=== PATIENT | female | born 1960 | race Caucasian/White ===

== ENCOUNTER 2017-12-28 19:46 | Inpatient (IN) | payer OTHER ==
[2017-12-28] MEDS: LORAZEPAM 1 MG TAB PO (20:31)
[2017-12-28] MEDS: ONDANSETRON 4 MG INJ IV (21:57)
[2017-12-28] MEDS: SOD CHLORIDE 0.9% 1,000 ML IV (21:57)
[2017-12-28] MEDS: morphine 4 MG/ML VIAL IV (21:57)
[2017-12-28 22:13] LABS: ADD MAN DIFF? NO
[2017-12-28 22:18] LABS: BASOPHILS % 0.4 % (0.0-2.0); EOSINOPHILS # 0.3 10^3/ul (0.0-0.5); EOSINOPHILS % 3.7 % (0.0-7.0); HEMOGLOBIN 11.1 g/dl (12.0-16.0); LYMPHOCYTES # 1.5 10^3/ul (0.8-2.9); LYMPHOCYTES % 22.6 % (15.0-51.0); MEAN CORPUSCULAR HEMOGLOBIN 29.6 pg (29.0-33.0); MEAN CORPUSCULAR HGB CONC 33.6 g/dl (32.0-37.0); MEAN PLATELET VOLUME 10.6 fl (7.4-10.4); MONOCYTE # 0.5 10^3/ul (0.3-0.9); MONOCYTES % 6.9 % (0.0-11.0); NEUTROPHIL # 4.5 10^3/ul (1.6-7.5); NEUTROPHILS % 66.1 % (39.0-77.0); PLATELET COUNT 229 10^3/UL (140-415); RED BLOOD COUNT 3.75 10^6/ul (4.20-5.40); RED CELL DISTRIBUTION WIDTH 13.2 % (11.5-14.5)
[2017-12-28 22:18] LABS: WHITE BLOOD COUNT 6.8 10^3/ul (4.8-10.8)
[2017-12-28 22:38] LABS: ALANINE AMINOTRANSFERASE 32 IU/L (13-69); ALBUMIN 4.3 g/dl (3.3-4.9); ALBUMIN/GLOBULIN RATIO 1.19; ALKALINE PHOSPHATASE 73 IU/L (42-121); ANION GAP 16 (8-16); ASPARTATE AMINO TRANSFERASE 22 IU/L (15-46); BILIRUBIN,INDIRECT 0.3 mg/dl (0-1.1); BILIRUBIN,TOTAL 0.3 mg/dl (0.2-1.3); BLOOD UREA NITROGEN 16 mg/dl (7-20); CALCIUM 9.6 mg/dl (8.4-10.2); CARBON DIOXIDE 24 mmol/L (21-31); CHLORIDE 110 mmol/L (97-110); CREATININE 0.68 mg/dl (0.44-1.00); GLUCOSE 98 mg/dl (70-220); LIPASE 59 U/L (23-300); POTASSIUM 3.8 mmol/L (3.5-5.1); SODIUM 146 mmol/L (135-144); TOTAL PROTEIN 7.9 g/dl (6.1-8.1)
[2017-12-28 22:43] LABS: INR 0.96; PROTIME 12.9 Sec (11.9-14.9)
[2017-12-28 22:44] LABS: PARTIAL THROMBOPLASTIN TIME 26.9 Sec (25.0-35.0)
[2017-12-28 22:52] LABS: TROPONIN-I < 0.012 ng/ml (0.00-0.12)
[2017-12-28 23:31] LABS: ADD UMIC YES; UR ASCORBIC ACID NEGATIVE (NEGATIVE); UR BACTERIA FEW /HPF (NONE SEEN); UR BILIRUBIN (Dip) NEGATIVE (NEGATIVE); UR BLOOD (Dip) 2+ mg/dL (NEGATIVE); UR CLARITY CLOUDY (CLEAR); UR COLOR YELLOW (YELLOW); UR GLUCOSE (Dip) NEGATIVE (NEGATIVE); UR KETONES (Dip) NEGATIVE (NEGATIVE); UR LEUKOCYTE ESTERASE (Dip) 3+ Leu/ul (NEGATIVE); UR MUCUS FEW /HPF (NONE SEEN); UR NITRITE (Dip) NEGATIVE (NEGATIVE); UR NONSQUAMOUS EPITHELIAL CELL 1 /HPF (NONE SEEN); UR RBC 17 /HPF (0-5); UR SPECIFIC GRAVITY (Dip) 1.018 (1.003-1.030); UR SQUAMOUS EPITHELIAL CELL FEW /HPF (FEW); UR TOTAL PROTEIN (Dip) 2+ mg/dl (NEGATIVE); UR UROBILINOGEN (Dip) NEGATIVE (NEGATIVE); UR WBC > 182 /HPF (0-5)
[2017-12-29] MEDS: ONDANSETRON 4 MG INJ IV ×2 (00:25→07:25)
[2017-12-29] MEDS: morphine 4 MG/ML VIAL IV (00:25)
[2017-12-29] MEDS: clonAZEPAM 0.5 MG TAB PO (02:56)
[2017-12-29] MEDS ORDERED: NACL 0.9% 3 ML SYG IV (05:30)
[2017-12-29] MEDS ORDERED: ALBUTEROL/IPRATROPIUM (NEB) 3 ML AMP HHN (05:30)
[2017-12-29] MEDS ORDERED: ACETAMINOPHEN 325 MG TAB PO (05:30)
[2017-12-29] MEDS: hydrALAzine 20 MG INJ IV ×2 (06:25→16:33)
[2017-12-29] MEDS: morphine 2 MG INJ IV ×2 (07:24→10:25)
[2017-12-29] MEDS: NITROFURANTOIN (SR) 100 MG CAP PO (07:24)
[2017-12-29] MEDS: CIPROFLOXACIN 400MG/D5W 200 ML IVPB ×2 (10:20→20:21)
[2017-12-29] MEDS: GABAPENTIN 100 MG CAP PO ×3 (10:20→20:20)
[2017-12-29] MEDS: AMLODIPINE 10 MG TAB PO (10:20)
[2017-12-29] MEDS: HEPARIN 5,000 UNIT/0.5 ML VIAL SC ×2 (10:25→20:21)
[2017-12-29] MEDS ORDERED: HYDROCODONE/APAP (10/325) TAB PO (11:30)
[2017-12-29] MEDS ORDERED: predniSONE 20 MG TAB PO (11:30)
[2017-12-29] MEDS: BACLOFEN 10 MG TAB PO ×2 (12:17→20:20)
[2017-12-29] MEDS: HYDROCODONE/APAP (10/325) TAB PO ×3 (14:32→22:43)
[2017-12-29] MEDS: ZOLPIDEM 5 MG TAB PO (23:03)
[2017-12-30] MEDS: BACLOFEN 10 MG TAB PO ×2 (04:34→16:15)
[2017-12-30] MEDS: HYDROCODONE/APAP (10/325) TAB PO ×4 (04:34→20:28)
[2017-12-30 06:08] LABS: ADD MAN DIFF? NO
[2017-12-30 06:21] LABS: BASOPHILS % 0.5 % (0.0-2.0); EOSINOPHILS # 0.3 10^3/ul (0.0-0.5); EOSINOPHILS % 4.3 % (0.0-7.0); HEMATOCRIT 30.9 % (37.0-47.0); HEMOGLOBIN 10.3 g/dl (12.0-16.0); LYMPHOCYTES # 2.2 10^3/ul (0.8-2.9); LYMPHOCYTES % 35.5 % (15.0-51.0); MEAN CORPUSCULAR HEMOGLOBIN 29.6 pg (29.0-33.0); MEAN CORPUSCULAR HGB CONC 33.3 g/dl (32.0-37.0); MEAN CORPUSCULAR VOLUME 88.8 fl (82.0-101.0); MEAN PLATELET VOLUME 10.8 fl (7.4-10.4); MONOCYTE # 0.6 10^3/ul (0.3-0.9); MONOCYTES % 9.7 % (0.0-11.0); NEUTROPHILS % 49.7 % (39.0-77.0); PLATELET COUNT 214 10^3/UL (140-415); RED BLOOD COUNT 3.48 10^6/ul (4.20-5.40); RED CELL DISTRIBUTION WIDTH 13.1 % (11.5-14.5)
[2017-12-30 06:21] LABS: WHITE BLOOD COUNT 6.1 10^3/ul (4.8-10.8)
[2017-12-30 06:38] LABS: HEMOGLOBIN A1C 5.3 % (0-5.9)
[2017-12-30 06:48] LABS: ALANINE AMINOTRANSFERASE 16 IU/L (13-69); ALBUMIN 3.8 g/dl (3.3-4.9); ALBUMIN/GLOBULIN RATIO 1.18; ALKALINE PHOSPHATASE 54 IU/L (42-121); ANION GAP 14 (8-16); ASPARTATE AMINO TRANSFERASE 16 IU/L (15-46); BILIRUBIN,INDIRECT 0.2 mg/dl (0-1.1); BILIRUBIN,TOTAL 0.2 mg/dl (0.2-1.3); BLOOD UREA NITROGEN 12 mg/dl (7-20); CALCIUM 9.3 mg/dl (8.4-10.2); CARBON DIOXIDE 26 mmol/L (21-31); CHLORIDE 106 mmol/L (97-110); CREATININE 0.66 mg/dl (0.44-1.00); GLUCOSE 111 mg/dl (70-220); MAGNESIUM 1.6 mg/dl (1.7-2.5); PHOSPHORUS 4.2 mg/dl (2.5-4.9); POTASSIUM 3.8 mmol/L (3.5-5.1); SODIUM 142 mmol/L (135-144)
[2017-12-30] MEDS: GABAPENTIN 100 MG CAP PO ×3 (09:14→20:27)
[2017-12-30] MEDS: CIPROFLOXACIN 400MG/D5W 200 ML IVPB ×2 (09:15→20:25)
[2017-12-30] MEDS: AMLODIPINE 10 MG TAB PO (09:15)
[2017-12-30] MEDS: hydrALAzine 20 MG INJ IV (09:19)
[2017-12-30] MEDS: HEPARIN 5,000 UNIT/0.5 ML VIAL SC ×2 (09:43→20:26)
[2017-12-30] MEDS: predniSONE 20 MG TAB PO (10:00)
[2017-12-30] MEDS: MAGNESIUM OXIDE 400 MG TAB PO ×2 (10:31→20:27)
[2017-12-30] MEDS: DIAZEPAM 5 MG TAB PO ×2 (13:47→20:27)
[2017-12-30] MEDS: GABAPENTIN 300 MG CAP PO (15:59)
[2017-12-30] MEDS: MIRTAZAPINE 15 MG TAB PO (20:27)
[2017-12-30] MEDS: clonAZEPAM 0.5 MG TAB PO (20:27)
[2017-12-30] MEDS: SENNA TAB PO (20:27)
[2017-12-30] MEDS ORDERED: NEOMYC/POLYMYX/BACIT/HC 15 GM OINT TOP (21:00)
[2017-12-31] MEDS: HYDROCODONE/APAP (10/325) TAB PO ×5 (01:29→23:35)
[2017-12-31] MEDS: DIAZEPAM 5 MG TAB PO ×4 (04:18→23:35)
[2017-12-31] MEDS: clonAZEPAM 0.5 MG TAB PO ×2 (08:24→21:18)
[2017-12-31] MEDS: MAGNESIUM OXIDE 400 MG TAB PO ×2 (08:24→21:14)
[2017-12-31] MEDS: GABAPENTIN 100 MG CAP PO ×3 (08:25→21:13)
[2017-12-31] MEDS: AMLODIPINE 10 MG TAB PO (08:25)
[2017-12-31] MEDS: predniSONE 20 MG TAB PO (08:29)
[2017-12-31] MEDS: SENNA TAB PO ×2 (08:31→21:18)
[2017-12-31] MEDS: CIPROFLOXACIN 400MG/D5W 200 ML IVPB ×2 (08:31→21:13)
[2017-12-31] MEDS: HEPARIN 5,000 UNIT/0.5 ML VIAL SC ×2 (08:34→21:15)
[2017-12-31] MEDS: BACLOFEN 10 MG TAB PO (09:00)
[2017-12-31] MEDS: DEXAMETHASONE 4 MG/ML 1 ML INJ IV ×3 (09:00→23:35)
[2017-12-31] MEDS: NEOMYC/POLYMYX/BACIT/HC 15 GM OINT TOP ×2 (11:00→21:00)
[2017-12-31] MEDS: INFLUENZA VIRUS VACCINE 0.5 ML SYG IM* (15:48)
[2017-12-31] MEDS: MIRTAZAPINE 15 MG TAB PO (21:13)
[2018-01-01] MEDS: ZOLPIDEM 5 MG TAB PO (02:34)
[2018-01-01] MEDS: DIAZEPAM 5 MG TAB PO ×4 (03:45→23:54)
[2018-01-01] MEDS: HYDROCODONE/APAP (10/325) TAB PO ×5 (03:46→23:54)
[2018-01-01] MEDS: DEXAMETHASONE 4 MG/ML 1 ML INJ IV ×4 (05:32→23:54)
[2018-01-01] MEDS: BACLOFEN 10 MG TAB PO ×2 (05:42→22:46)
[2018-01-01] MEDS: HEPARIN 5,000 UNIT/0.5 ML VIAL SC ×2 (09:00→20:19)
[2018-01-01] MEDS: NEOMYC/POLYMYX/BACIT/HC 15 GM OINT TOP (09:00)
[2018-01-01] MEDS: INFLUENZA VIRUS VACCINE 0.5 ML SYG IM* (09:00)
[2018-01-01] MEDS: AMLODIPINE 10 MG TAB PO (09:00)
[2018-01-01] MEDS: SENNA TAB PO ×2 (09:00→21:51)
[2018-01-01] MEDS: GABAPENTIN 100 MG CAP PO ×4 (09:00→21:51)
[2018-01-01] MEDS: clonAZEPAM 0.5 MG TAB PO ×3 (09:00→21:51)
[2018-01-01] MEDS: MAGNESIUM OXIDE 400 MG TAB PO ×3 (09:00→21:51)
[2018-01-01] MEDS: CIPROFLOXACIN 400MG/D5W 200 ML IVPB ×2 (09:00→10:17)
[2018-01-01] MEDS: NEOMYC/POLYMYX/BACIT 30 GM OINT TOP ×2 (17:43→21:51)
[2018-01-01] MEDS: HYDROCORTISONE 1% 28 GM CR TOP ×2 (17:44→21:51)
[2018-01-01] MEDS: hydrALAzine 20 MG INJ IV (20:21)
[2018-01-01] MEDS ORDERED: KETOROLAC 30 MG INJ IV (20:30)
[2018-01-01] MEDS: MIRTAZAPINE 15 MG TAB PO (21:51)
[2018-01-02 02:11] LABS: ADD MAN DIFF? NO
[2018-01-02 02:17] LABS: WHITE BLOOD COUNT 10.4 10^3/ul (4.8-10.8)
[2018-01-02 02:17] LABS: BASOPHILS % 0.1 % (0.0-2.0); HEMATOCRIT 33.5 % (37.0-47.0); HEMOGLOBIN 11.5 g/dl (12.0-16.0); LYMPHOCYTES # 1.1 10^3/ul (0.8-2.9); LYMPHOCYTES % 10.8 % (15.0-51.0); MEAN CORPUSCULAR HEMOGLOBIN 29.9 pg (29.0-33.0); MEAN CORPUSCULAR HGB CONC 34.3 g/dl (32.0-37.0); MEAN PLATELET VOLUME 10.6 fl (7.4-10.4); MONOCYTE # 0.4 10^3/ul (0.3-0.9); MONOCYTES % 4.1 % (0.0-11.0); NEUTROPHIL # 8.7 10^3/ul (1.6-7.5); NEUTROPHILS % 83.6 % (39.0-77.0); PLATELET COUNT 281 10^3/UL (140-415); RED BLOOD COUNT 3.85 10^6/ul (4.20-5.40); RED CELL DISTRIBUTION WIDTH 12.9 % (11.5-14.5)
[2018-01-02 02:36] LABS: ANION GAP 23 (8-16); BLOOD UREA NITROGEN 20 mg/dl (7-20); CALCIUM 9.6 mg/dl (8.4-10.2); CARBON DIOXIDE 20 mmol/L (21-31); CHLORIDE 104 mmol/L (97-110); CREATININE 0.52 mg/dl (0.44-1.00); GLUCOSE 179 mg/dl (70-220); MAGNESIUM 2.1 mg/dl (1.7-2.5); POTASSIUM 4.3 mmol/L (3.5-5.1); SODIUM 143 mmol/L (135-144)
[2018-01-02] MEDS: DEXAMETHASONE 4 MG/ML 1 ML INJ IV ×3 (05:48→17:56)
[2018-01-02] MEDS: LORAZEPAM 2 MG INJ IV (05:48)
[2018-01-02] MEDS: hydrALAzine 20 MG INJ IV (06:35)
[2018-01-02] MEDS ORDERED: METOPROLOL 5 MG INJ (07:00)
[2018-01-02] MEDS ORDERED: MIDAZOLAM 1 MG/ML 2 ML INJ ×2 (07:39→10:59)
[2018-01-02] MEDS: VANCOMYCIN 1 GM (PMX) 250 ML (08:15)
[2018-01-02] MEDS ORDERED: morphine 10 MG INJ ×3 (08:34→13:04)
[2018-01-02] MEDS ORDERED: GENTAMICIN 80 MG INJ (08:51)
[2018-01-02] MEDS: GABAPENTIN 100 MG CAP PO ×3 (09:00→21:42)
[2018-01-02] MEDS: HYDROCORTISONE 1% 28 GM CR TOP ×2 (09:00→21:42)
[2018-01-02] MEDS: SENNA TAB PO ×2 (09:00→21:42)
[2018-01-02] MEDS: clonAZEPAM 0.5 MG TAB PO ×2 (09:00→21:42)
[2018-01-02] MEDS: MAGNESIUM OXIDE 400 MG TAB PO ×2 (09:00→21:42)
[2018-01-02] MEDS: HEPARIN 5,000 UNIT/0.5 ML VIAL SC ×2 (09:00→21:00)
[2018-01-02] MEDS: NEOMYC/POLYMYX/BACIT 30 GM OINT TOP ×2 (09:00→21:42)
[2018-01-02] MEDS: AMLODIPINE 10 MG TAB PO (09:00)
[2018-01-02] MEDS: LIDOCAINE 1%/EPI 30 ML INJ (09:04)
[2018-01-02] MEDS ORDERED: GELATIN SIZE 100 SPONGE (09:22)
[2018-01-02] MEDS: GELATIN SIZE 100 SPONGE (09:57)
[2018-01-02] MEDS: THROMBIN 5000 UNIT VIAL (09:57)
[2018-01-02] MEDS: POLYMYXIN/BACITRACIN 1L IRRIG (09:58)
[2018-01-02] MEDS: HEMOSTATIC MATRIX SYG ZFS (09:58)
[2018-01-02] MEDS ORDERED: hydrALAzine 20 MG INJ (10:57)
[2018-01-02] MEDS ORDERED: DEXAMETHASONE 4 MG/ML 1 ML INJ (12:28)
[2018-01-02] MEDS ORDERED: LIDOCAINE 2% (SDV) 5 ML INJ (12:28)
[2018-01-02] MEDS ORDERED: ONDANSETRON 4 MG INJ (12:28)
[2018-01-02] MEDS ORDERED: PROPOFOL 40 ML (12:28)
[2018-01-02] MEDS ORDERED: ROCURONIUM 50 MG INJ (12:28)
[2018-01-02] MEDS ORDERED: NACL 0.9% 3 ML SYG IV (13:00)
[2018-01-02] MEDS ORDERED: ONDANSETRON 4 MG INJ IV (13:00)
[2018-01-02] MEDS ORDERED: CEPASTAT LOZENGE MT (13:00)
[2018-01-02] MEDS ORDERED: NALOXONE (0.4 MG/ML) INJ IV (13:00)
[2018-01-02] MEDS ORDERED: MIDAZOLAM 1 MG/ML 2 ML INJ IV (13:30)
[2018-01-02] MEDS ORDERED: hydrALAzine 20 MG INJ IV (13:30)
[2018-01-02] MEDS ORDERED: LABETALOL HCL 20MG INJ IV (13:30)
[2018-01-02] MEDS ORDERED: METOCLOPRAMIDE 10 MG INJ IV (13:30)
[2018-01-02] MEDS ORDERED: HYDROmorphONE (0.2 MG/ML) 10ML SYG IV ×3 (13:30)
[2018-01-02] MEDS ORDERED: FENTAnyl 50 MCG/ML VIAL IV (13:30)
[2018-01-02] MEDS: ONDANSETRON 4 MG INJ IV (13:31)
[2018-01-02] MEDS: MEPERIDINE 25 MG INJ IV (13:33)
[2018-01-02] MEDS: morphine 1 MG/ML 30 ML (PCA) IV (13:57)
[2018-01-02] MEDS: ACETAMINOPHEN 1000MG/100ML IV 100 ML IVPB ×2 (14:00→21:41)
[2018-01-02] MEDS: DIPHENHYDRAMINE 50 MG INJ IV (14:15)
[2018-01-02] MEDS: MIRTAZAPINE 15 MG TAB PO (21:42)
[2018-01-02] MEDS: VANCOMYCIN 1 GM (PMX) 250 ML IVPB (21:42)
[2018-01-03] MEDS: DIAZEPAM 5 MG TAB PO ×2 (00:28→20:00)
[2018-01-03] MEDS: DEXAMETHASONE 4 MG/ML 1 ML INJ IV ×4 (01:24→18:27)
[2018-01-03] MEDS: ACETAMINOPHEN 1000MG/100ML IV 100 ML IVPB ×4 (02:39→20:00)
[2018-01-03] MEDS: LORAZEPAM 2 MG INJ IV (05:40)
[2018-01-03] MEDS ORDERED: LORAZEPAM 2 MG INJ (05:41)
[2018-01-03] MEDS: HALOPERIDOL 5 MG INJ IM ×2 (06:03→06:53)
[2018-01-03] MEDS ORDERED: DIPHENHYDRAMINE 50 MG INJ (06:14)
[2018-01-03] MEDS ORDERED: DIPHENHYDRAMINE 50 MG INJ IV (06:30)
[2018-01-03] MEDS: DIPHENHYDRAMINE 50 MG INJ IM (06:53)
[2018-01-03] MEDS: SENNA TAB PO ×2 (09:00→21:31)
[2018-01-03] MEDS: DOCUSATE SODIUM 100 MG CAP PO ×2 (09:00→21:30)
[2018-01-03] MEDS: HEPARIN 5,000 UNIT/0.5 ML VIAL SC ×2 (09:00→21:40)
[2018-01-03] MEDS: NEOMYC/POLYMYX/BACIT 30 GM OINT TOP ×2 (09:00→22:00)
[2018-01-03] MEDS: MAGNESIUM OXIDE 400 MG TAB PO ×2 (09:00→21:30)
[2018-01-03] MEDS: HYDROCORTISONE 1% 28 GM CR TOP ×2 (09:00→21:32)
[2018-01-03] MEDS: GABAPENTIN 100 MG CAP PO ×3 (09:00→21:31)
[2018-01-03] MEDS: clonAZEPAM 0.5 MG TAB PO (09:00)
[2018-01-03] MEDS: AMLODIPINE 10 MG TAB PO (09:00)
[2018-01-03] MEDS: FERROUS SULFATE (EC) 325 MG TAB PO ×3 (09:00→21:30)
[2018-01-03] MEDS: VANCOMYCIN 1 GM (PMX) 250 ML IVPB (11:05)
[2018-01-03 15:13] LABS: HEMATOCRIT 30.4 % (37.0-47.0); HEMOGLOBIN 10.1 g/dl (12.0-16.0)
[2018-01-03 15:53] LABS: ANION GAP 13 (8-16); BLOOD UREA NITROGEN 20 mg/dl (7-20); CALCIUM 9.5 mg/dl (8.4-10.2); CARBON DIOXIDE 25 mmol/L (21-31); CHLORIDE 108 mmol/L (97-110); CREATININE 0.62 mg/dl (0.44-1.00); GLUCOSE 112 mg/dl (70-220); POTASSIUM 4.1 mmol/L (3.5-5.1); SODIUM 142 mmol/L (135-144)
[2018-01-03] MEDS: MIRTAZAPINE 15 MG TAB PO (21:31)
[2018-01-03] MEDS: HYDROCODONE/APAP (5/325) TAB PO (21:33)
[2018-01-04] MEDS: clonAZEPAM 0.5 MG TAB PO ×3 (00:22→21:12)
[2018-01-04] MEDS: DEXAMETHASONE 4 MG/ML 1 ML INJ IV ×2 (00:22→05:18)
[2018-01-04] MEDS: ACETAMINOPHEN 1000MG/100ML IV 100 ML IVPB ×2 (02:16→08:00)
[2018-01-04] MEDS: HYDROCODONE/APAP (5/325) TAB PO ×5 (04:15→22:18)
[2018-01-04] MEDS: DIAZEPAM 5 MG TAB PO ×5 (05:17→22:19)
[2018-01-04] MEDS: MAGNESIUM OXIDE 400 MG TAB PO ×2 (08:34→21:12)
[2018-01-04] MEDS: AMLODIPINE 10 MG TAB PO (08:34)
[2018-01-04] MEDS: GABAPENTIN 100 MG CAP PO (08:35)
[2018-01-04] MEDS: DOCUSATE SODIUM 100 MG CAP PO ×2 (08:35→21:00)
[2018-01-04] MEDS: SENNA TAB PO ×2 (08:35→21:00)
[2018-01-04] MEDS: HYDROCORTISONE 1% 28 GM CR TOP ×2 (08:35→22:21)
[2018-01-04] MEDS: FERROUS SULFATE (EC) 325 MG TAB PO (08:35)
[2018-01-04] MEDS: HEPARIN 5,000 UNIT/0.5 ML VIAL SC ×2 (08:36→22:20)
[2018-01-04] MEDS: NEOMYC/POLYMYX/BACIT 30 GM OINT TOP ×2 (09:00→22:21)
[2018-01-04] MEDS: BACLOFEN 10 MG TAB PO ×2 (12:55→21:13)
[2018-01-04] MEDS: MIRTAZAPINE 15 MG TAB PO (21:12)
[2018-01-05] MEDS: DIAZEPAM 5 MG TAB PO ×4 (02:50→19:52)
[2018-01-05] MEDS: HYDROCODONE/APAP (5/325) TAB PO ×4 (02:51→19:52)
[2018-01-05] MEDS: clonAZEPAM 0.5 MG TAB PO ×2 (08:17→21:19)
[2018-01-05] MEDS: AMLODIPINE 10 MG TAB PO (08:18)
[2018-01-05] MEDS: DOCUSATE SODIUM 100 MG CAP PO ×2 (08:18→21:00)
[2018-01-05] MEDS: SENNA TAB PO ×2 (08:18→21:00)
[2018-01-05] MEDS: MAGNESIUM OXIDE 400 MG TAB PO ×2 (08:18→21:19)
[2018-01-05] MEDS: HEPARIN 5,000 UNIT/0.5 ML VIAL SC ×2 (08:41→21:22)
[2018-01-05] MEDS: HYDROCORTISONE 1% 28 GM CR TOP ×2 (09:00→21:20)
[2018-01-05] MEDS: NEOMYC/POLYMYX/BACIT 30 GM OINT TOP ×2 (09:00→21:20)
[2018-01-05] MEDS: MIRTAZAPINE 15 MG TAB PO (21:19)
[2018-01-06] MEDS: DIAZEPAM 5 MG TAB PO ×4 (00:12→18:22)
[2018-01-06] MEDS: HYDROCODONE/APAP (5/325) TAB PO ×4 (00:12→18:20)
[2018-01-06] MEDS: DOCUSATE SODIUM 100 MG CAP PO ×2 (09:00→21:00)
[2018-01-06] MEDS: SENNA TAB PO ×2 (09:00→21:00)
[2018-01-06] MEDS: AMLODIPINE 10 MG TAB PO (09:46)
[2018-01-06] MEDS: clonAZEPAM 0.5 MG TAB PO ×2 (09:47→21:21)
[2018-01-06] MEDS: MAGNESIUM OXIDE 400 MG TAB PO ×2 (09:47→21:21)
[2018-01-06] MEDS: NEOMYC/POLYMYX/BACIT 30 GM OINT TOP ×2 (09:48→21:22)
[2018-01-06] MEDS: HYDROCORTISONE 1% 28 GM CR TOP ×2 (09:48→21:22)
[2018-01-06] MEDS: BACLOFEN 10 MG TAB PO (09:52)
[2018-01-06] MEDS: HEPARIN 5,000 UNIT/0.5 ML VIAL SC ×2 (09:55→21:26)
[2018-01-06] MEDS: MIRTAZAPINE 15 MG TAB PO (21:21)
[2018-01-07] MEDS: DIAZEPAM 5 MG TAB PO ×5 (01:21→23:52)
[2018-01-07] MEDS: HYDROCODONE/APAP (5/325) TAB PO ×5 (01:21→23:52)
[2018-01-07] MEDS: MAGNESIUM OXIDE 400 MG TAB PO ×2 (08:43→21:00)
[2018-01-07] MEDS: clonAZEPAM 0.5 MG TAB PO ×2 (08:43→21:00)
[2018-01-07] MEDS: SENNA TAB PO ×2 (08:43→21:00)
[2018-01-07] MEDS: DOCUSATE SODIUM 100 MG CAP PO ×2 (08:43→21:00)
[2018-01-07] MEDS: AMLODIPINE 10 MG TAB PO (08:44)
[2018-01-07] MEDS: HEPARIN 5,000 UNIT/0.5 ML VIAL SC ×2 (08:51→21:04)
[2018-01-07] MEDS: HYDROCORTISONE 1% 28 GM CR TOP ×2 (11:27→21:01)
[2018-01-07] MEDS: NEOMYC/POLYMYX/BACIT 30 GM OINT TOP ×2 (11:27→21:01)
[2018-01-07] MEDS: BACLOFEN 10 MG TAB PO (16:21)
[2018-01-07] MEDS: MIRTAZAPINE 15 MG TAB PO (21:00)
[2018-01-08] MEDS: HYDROCODONE/APAP (5/325) TAB PO ×4 (06:55→23:49)
[2018-01-08] MEDS: clonAZEPAM 0.5 MG TAB PO ×2 (08:21→21:49)
[2018-01-08] MEDS: MAGNESIUM OXIDE 400 MG TAB PO ×2 (08:22→21:49)
[2018-01-08] MEDS: AMLODIPINE 10 MG TAB PO (08:22)
[2018-01-08] MEDS: HEPARIN 5,000 UNIT/0.5 ML VIAL SC ×2 (08:23→21:53)
[2018-01-08] MEDS: HYDROCORTISONE 1% 28 GM CR TOP ×2 (08:24→21:50)
[2018-01-08] MEDS: NEOMYC/POLYMYX/BACIT 30 GM OINT TOP ×2 (08:24→21:50)
[2018-01-08] MEDS: DOCUSATE SODIUM 100 MG CAP PO ×2 (08:24→21:00)
[2018-01-08] MEDS: SENNA TAB PO ×2 (08:24→21:00)
[2018-01-08] MEDS: DIAZEPAM 5 MG TAB PO (15:14)
[2018-01-08] MEDS: BACLOFEN 10 MG TAB PO (18:03)
[2018-01-08] MEDS: MIRTAZAPINE 15 MG TAB PO (21:49)
[2018-01-09] MEDS: DIAZEPAM 5 MG TAB PO ×2 (05:51→10:08)
[2018-01-09] MEDS: BACLOFEN 10 MG TAB PO (05:51)
[2018-01-09] MEDS: MAGNESIUM OXIDE 400 MG TAB PO ×2 (08:03→20:40)
[2018-01-09] MEDS: AMLODIPINE 10 MG TAB PO (08:03)
[2018-01-09] MEDS: clonAZEPAM 0.5 MG TAB PO ×2 (08:03→20:40)
[2018-01-09] MEDS: DOCUSATE SODIUM 100 MG CAP PO ×2 (08:04→20:43)
[2018-01-09] MEDS: HEPARIN 5,000 UNIT/0.5 ML VIAL SC ×2 (08:04→20:43)
[2018-01-09] MEDS: SENNA TAB PO ×2 (08:04→20:43)
[2018-01-09] MEDS: NEOMYC/POLYMYX/BACIT 30 GM OINT TOP ×2 (09:09→20:44)
[2018-01-09] MEDS: HYDROCODONE/APAP (5/325) TAB PO (09:09)
[2018-01-09] MEDS: HYDROCORTISONE 1% 28 GM CR TOP ×2 (09:09→20:44)
[2018-01-09] MEDS ORDERED: KETOROLAC 30 MG INJ IV (11:00)
[2018-01-09] MEDS: MIRTAZAPINE 15 MG TAB PO (20:40)
[2018-01-09] MEDS: traMADol 50 MG TAB PO (23:15)
[2018-01-10] MEDS: BACLOFEN 10 MG TAB PO ×3 (00:54→17:31)
[2018-01-10] MEDS: ZOLPIDEM 5 MG TAB PO (00:57)
[2018-01-10] MEDS: HYDROCODONE/APAP (5/325) TAB PO ×6 (02:34→23:47)
[2018-01-10] MEDS: DIAZEPAM 5 MG TAB PO ×5 (02:34→23:15)
[2018-01-10] MEDS: clonAZEPAM 0.5 MG TAB PO ×2 (08:55→22:11)
[2018-01-10] MEDS: MAGNESIUM OXIDE 400 MG TAB PO ×2 (08:55→22:10)
[2018-01-10] MEDS: SENNA TAB PO ×2 (08:56→21:00)
[2018-01-10] MEDS: AMLODIPINE 10 MG TAB PO (08:56)
[2018-01-10] MEDS: NEOMYC/POLYMYX/BACIT 30 GM OINT TOP ×2 (08:56→22:13)
[2018-01-10] MEDS: DOCUSATE SODIUM 100 MG CAP PO ×2 (08:56→21:00)
[2018-01-10] MEDS: HYDROCORTISONE 1% 28 GM CR TOP ×2 (08:57→22:13)
[2018-01-10] MEDS: HEPARIN 5,000 UNIT/0.5 ML VIAL SC ×2 (09:03→21:00)
[2018-01-10] MEDS: MIRTAZAPINE 15 MG TAB PO (22:10)
[2018-01-11] MEDS: ZOLPIDEM 5 MG TAB PO ×2 (00:27→20:45)
[2018-01-11] MEDS: HYDROCODONE/APAP (5/325) TAB PO ×4 (05:05→17:41)
[2018-01-11] MEDS: MAGNESIUM OXIDE 400 MG TAB PO ×2 (08:55→20:43)
[2018-01-11] MEDS: clonAZEPAM 0.5 MG TAB PO ×2 (08:55→20:44)
[2018-01-11] MEDS: DOCUSATE SODIUM 100 MG CAP PO ×2 (08:55→20:44)
[2018-01-11] MEDS: NEOMYC/POLYMYX/BACIT 30 GM OINT TOP ×2 (08:56→20:49)
[2018-01-11] MEDS: AMLODIPINE 10 MG TAB PO (08:56)
[2018-01-11] MEDS: HYDROCORTISONE 1% 28 GM CR TOP ×2 (08:56→20:49)
[2018-01-11] MEDS: SENNA TAB PO ×2 (08:56→20:43)
[2018-01-11] MEDS: HEPARIN 5,000 UNIT/0.5 ML VIAL SC ×2 (09:01→20:53)
[2018-01-11] MEDS: DIAZEPAM 5 MG TAB PO ×3 (09:02→17:41)
[2018-01-11] MEDS: BACLOFEN 10 MG TAB PO (14:31)
[2018-01-11] MEDS: AL HYDROX/MG HYDROX/SIMETH 30 ML CUP PO (17:42)
[2018-01-11] MEDS: DIPHENHYDRAMINE 50 MG CAP PO (20:43)
[2018-01-11] MEDS: MIRTAZAPINE 15 MG TAB PO (20:43)
[2018-01-12] MEDS: DIAZEPAM 5 MG TAB PO ×3 (03:16→20:30)
[2018-01-12] MEDS: ACETAMINOPHEN 325 MG TAB PO (03:16)
[2018-01-12] MEDS: BACLOFEN 10 MG TAB PO (05:26)
[2018-01-12] MEDS: MAGNESIUM OXIDE 400 MG TAB PO ×2 (09:21→20:23)
[2018-01-12] MEDS: clonAZEPAM 0.5 MG TAB PO ×2 (09:21→21:54)
[2018-01-12] MEDS: SENNA TAB PO ×2 (09:21→21:54)
[2018-01-12] MEDS: DOCUSATE SODIUM 100 MG CAP PO ×2 (09:21→21:54)
[2018-01-12] MEDS: NEOMYC/POLYMYX/BACIT 30 GM OINT TOP ×2 (09:21→20:31)
[2018-01-12] MEDS: AMLODIPINE 10 MG TAB PO (09:22)
[2018-01-12] MEDS: HYDROCORTISONE 1% 28 GM CR TOP ×2 (09:23→20:31)
[2018-01-12] MEDS: HEPARIN 5,000 UNIT/0.5 ML VIAL SC ×2 (09:23→20:33)
[2018-01-12] MEDS: HYDROCODONE/APAP (5/325) TAB PO ×3 (09:49→20:22)
[2018-01-12] MEDS: BISACODYL 10 MG SUPP PR (17:26)
[2018-01-12] MEDS: MIRTAZAPINE 15 MG TAB PO (21:54)
[2018-01-12] MEDS: ZOLPIDEM 5 MG TAB PO (23:26)
[2018-01-13] MEDS: HYDROCODONE/APAP (5/325) TAB PO ×4 (03:20→18:36)
[2018-01-13] MEDS: DIAZEPAM 5 MG TAB PO ×4 (03:22→18:36)
[2018-01-13] MEDS: AMLODIPINE 10 MG TAB PO (08:57)
[2018-01-13] MEDS: DOCUSATE SODIUM 100 MG CAP PO ×2 (08:57→21:52)
[2018-01-13] MEDS: SENNA TAB PO ×2 (08:57→21:00)
[2018-01-13] MEDS: MAGNESIUM OXIDE 400 MG TAB PO ×2 (08:57→21:52)
[2018-01-13] MEDS: clonAZEPAM 0.5 MG TAB PO ×2 (08:57→21:53)
[2018-01-13] MEDS: HYDROCORTISONE 1% 28 GM CR TOP ×2 (09:02→21:55)
[2018-01-13] MEDS: HEPARIN 5,000 UNIT/0.5 ML VIAL SC ×2 (09:02→21:54)
[2018-01-13] MEDS: NEOMYC/POLYMYX/BACIT 30 GM OINT TOP ×2 (09:02→21:55)
[2018-01-13] MEDS: BACLOFEN 10 MG TAB PO (21:52)
[2018-01-13] MEDS: MIRTAZAPINE 15 MG TAB PO (21:52)
[2018-01-13] MEDS: ZOLPIDEM 5 MG TAB PO (23:59)
[2018-01-14] MEDS: DIAZEPAM 5 MG TAB PO ×5 (02:26→19:59)
[2018-01-14] MEDS: HYDROCODONE/APAP (5/325) TAB PO ×5 (02:26→19:59)
[2018-01-14] MEDS: SENNA TAB PO ×2 (10:50→21:25)
[2018-01-14] MEDS: DOCUSATE SODIUM 100 MG CAP PO ×2 (10:50→21:25)
[2018-01-14] MEDS: HYDROCORTISONE 1% 28 GM CR TOP ×2 (10:51→21:33)
[2018-01-14] MEDS: NEOMYC/POLYMYX/BACIT 30 GM OINT TOP ×2 (10:51→21:33)
[2018-01-14] MEDS: AMLODIPINE 10 MG TAB PO (10:51)
[2018-01-14] MEDS: MAGNESIUM OXIDE 400 MG TAB PO ×2 (10:51→21:25)
[2018-01-14] MEDS: clonAZEPAM 0.5 MG TAB PO ×2 (10:51→21:25)
[2018-01-14] MEDS: HEPARIN 5,000 UNIT/0.5 ML VIAL SC ×2 (10:53→21:30)
[2018-01-14] MEDS: BACLOFEN 10 MG TAB PO (21:24)
[2018-01-14] MEDS: MIRTAZAPINE 15 MG TAB PO (22:02)
[2018-01-14] MEDS: ZOLPIDEM 5 MG TAB PO (23:28)
[2018-01-15] MEDS: DIAZEPAM 5 MG TAB PO ×4 (00:24→19:43)
[2018-01-15] MEDS: HYDROCODONE/APAP (5/325) TAB PO ×4 (00:25→19:43)
[2018-01-15] MEDS: SENNA TAB PO ×2 (09:42→21:00)
[2018-01-15] MEDS: MAGNESIUM OXIDE 400 MG TAB PO ×2 (09:42→21:00)
[2018-01-15] MEDS: clonAZEPAM 0.5 MG TAB PO ×2 (09:42→21:00)
[2018-01-15] MEDS: DOCUSATE SODIUM 100 MG CAP PO ×2 (09:42→21:00)
[2018-01-15] MEDS: AMLODIPINE 10 MG TAB PO (09:43)
[2018-01-15] MEDS: HEPARIN 5,000 UNIT/0.5 ML VIAL SC ×2 (09:43→21:04)
[2018-01-15] MEDS: NEOMYC/POLYMYX/BACIT 30 GM OINT TOP ×2 (10:02→21:01)
[2018-01-15] MEDS: HYDROCORTISONE 1% 28 GM CR TOP ×2 (10:03→21:02)
[2018-01-15] MEDS: BACLOFEN 10 MG TAB PO (10:05)
[2018-01-15] MEDS: MIRTAZAPINE 15 MG TAB PO (21:00)
[2018-01-16] MEDS: DIAZEPAM 5 MG TAB PO ×5 (00:28→19:46)
[2018-01-16] MEDS: HYDROCODONE/APAP (5/325) TAB PO ×5 (00:29→19:42)
[2018-01-16] MEDS: SENNA TAB PO ×2 (08:34→19:43)
[2018-01-16] MEDS: DOCUSATE SODIUM 100 MG CAP PO ×2 (08:34→19:43)
[2018-01-16] MEDS: MAGNESIUM OXIDE 400 MG TAB PO ×2 (08:34→19:42)
[2018-01-16] MEDS: clonAZEPAM 0.5 MG TAB PO ×2 (08:34→19:43)
[2018-01-16] MEDS: AMLODIPINE 10 MG TAB PO (08:34)
[2018-01-16] MEDS: HEPARIN 5,000 UNIT/0.5 ML VIAL SC ×2 (08:36→19:44)
[2018-01-16] MEDS: HYDROCORTISONE 1% 28 GM CR TOP ×2 (09:00→20:38)
[2018-01-16] MEDS: NEOMYC/POLYMYX/BACIT 30 GM OINT TOP ×2 (09:00→20:38)
[2018-01-16] MEDS: MIRTAZAPINE 15 MG TAB PO (19:42)
[2018-01-16] MEDS: traMADol 50 MG TAB PO (22:15)
[2018-01-16] MEDS: ZOLPIDEM 5 MG TAB PO (22:15)
[2018-01-17] MEDS: HYDROCODONE/APAP (5/325) TAB PO ×5 (02:23→19:45)
[2018-01-17] MEDS: DIAZEPAM 5 MG TAB PO ×5 (02:26→19:45)
[2018-01-17] MEDS: SENNA TAB PO (08:37)
[2018-01-17] MEDS: MAGNESIUM OXIDE 400 MG TAB PO (08:38)
[2018-01-17] MEDS: clonAZEPAM 0.5 MG TAB PO (08:38)
[2018-01-17] MEDS: DOCUSATE SODIUM 100 MG CAP PO (08:38)
[2018-01-17] MEDS: AMLODIPINE 10 MG TAB PO (08:39)
[2018-01-17] MEDS: HEPARIN 5,000 UNIT/0.5 ML VIAL SC (08:42)
[2018-01-17] MEDS: NEOMYC/POLYMYX/BACIT 30 GM OINT TOP (09:00)
[2018-01-17] MEDS: HYDROCORTISONE 1% 28 GM CR TOP (11:01)
[2018-01-17] MEDS: BACLOFEN 10 MG TAB PO (18:39)
== END 2018-01-17 20:25 | disposition home health service (06) | DRG 472 ==
LOC: MS2 01-03 07:05 → E/R 19:46 → MS2 12-29 02:40
PROVIDERS: Internal Medicine
PROC: 0RG20A0 Fusion of 2 or more Cervical Vertebral Joints with Interbody Fusion Device, Anterior Approach, Anterior Column, Open Approach (ICD-10-PCS; principal; 2018-01-02 07:30)
PROC: 0RB30ZZ Excision of Cervical Vertebral Disc, Open Approach (ICD-10-PCS; 2018-01-02 07:30)
DX: M48.02 Spinal stenosis, cervical region (principal); N39.0 Urinary tract infection, site not specified; F05 Delirium due to known physiological condition; F33.9 Major depressive disorder, recurrent, unspecified; F41.9 Anxiety disorder, unspecified
CPT/HCPCS: 36415; 71045; 72040; 72125; 72141; 72146; 72158; 73562; 80048; 80053; 81001; 82962; 83036; 83690; 83735; 84100; 84484; 85014; 85018; 85025; 85610; 85730; 87086; 90686; 93005; 96374; 96375; 96376; 97110; 97116; 97162; 97166; 97530; 97535; 99285-25

== ENCOUNTER 2018-12-24 20:59 | Inpatient (IN) | payer OTHER ==
[~2018-12-24 20:59] MED LIST: ETOMIDATE 20 MG INJ; ROCURONIUM 50 MG INJ
[2018-12-24 21:27] LABS: AADO2 Arterial 501.9 mmHg (7.0-24.0); Arterial Base Excess -27.4 mmol/L (-3.0-3); Arterial Blood Gas Oxygen Sat 98.6 mmHG (95.0-98.0); Arterial COHb 1.4 % (0.0-3.0); Arterial Fraction of Oxyhgb 96.6 % (93.0-99.0); Arterial HCO3 2.1 mmol/L (22.0-26.0); Arterial MetHb 0.6 % (0.0-1.5); Arterial pCO2 10.7 mmhg (35-45); MODE MASK - NRB; Site Right Brachial
[2018-12-24] MEDS ORDERED: PROPOFOL 100 ML (21:41)
[2018-12-24] MEDS: CEFEPIME 2GM/50 ML (PMX) 50 ML IVPB (21:42)
[2018-12-24] MEDS: SODIUM CHLORIDE 0.9% 1L BAG IV* (21:43)
[2018-12-24 21:56] LABS: ALANINE AMINOTRANSFERASE 34 IU/L (13-69); ALBUMIN 2.8 g/dl (3.3-4.9); ALBUMIN/GLOBULIN RATIO 0.87; ALKALINE PHOSPHATASE 186 IU/L (42-121); ASPARTATE AMINO TRANSFERASE 100 IU/L (15-46); BLOOD UREA NITROGEN 92 mg/dl (7-20); CHLORIDE 97 mmol/L (97-110); CREATININE 4.01 mg/dl (0.44-1.00); Estimated GFR 12 mL/min (>60); GLUCOSE 179 mg/dl (70-220); POTASSIUM 4.3 mmol/L (3.5-5.1); SODIUM 139 mmol/L (135-144)
[2018-12-24 21:58] LABS: WHITE BLOOD COUNT 91.3 10^3/ul (4.8-10.8)
[2018-12-24 21:58] LABS: ABNORMAL IP MESSAGE 1; HEMATOCRIT 9.3 % (37.0-47.0); MEAN CORPUSCULAR HGB CONC 24.7 g/dl (32.0-37.0); MEAN CORPUSCULAR VOLUME 113.4 fl (82.0-101.0); MEAN PLATELET VOLUME 9.7 fl (7.4-10.4); NUCLEATED RED BLOOD CELLS% 0.9 /100WBC (0.0-0.0); PLATELET COUNT 805 10^3/UL (140-415); RED BLOOD COUNT 0.82 10^6/ul (4.20-5.40); RED CELL DISTRIBUTION WIDTH 26.4 % (11.5-14.5)
[2018-12-24 21:59] LABS: POSITIVE DIFF @See below
[2018-12-24] MEDS ORDERED: NORepinephrine 8MG/250 ML (PMX 250 ML IV (22:00)
[2018-12-24 22:01] LABS: ADD MAN DIFF? YES; HEMOGLOBIN 2.3 g/dl (12.0-16.0)
[2018-12-24 22:09] LABS: LACTIC ACID 23.3 mmol/L (0.5-2.0)
[2018-12-24 22:09] LABS: INR 2.71; PARTIAL THROMBOPLASTIN TIME 33.8 Sec (23.0-35.0); PROTIME 28.8 Sec (11.9-14.9); PT RATIO 2.3
[2018-12-24 22:11] LABS: PHOSPHORUS 12.3 mg/dl (2.5-4.9)
[2018-12-24 22:11] LABS: ANION GAP 37 (5-13); C-REACTIVE PROTEIN 16.2 mg/dl (0.0-0.9); CARBON DIOXIDE < 5 mmol/L (21-31); MAGNESIUM 2.7 mg/dl (1.7-2.5); TROPONIN-I 0.405 ng/ml (0.000-0.120)
[2018-12-24 22:15] LABS: ANISOCYTOSIS 2+ (0-0); BAND NEUTROPHILS % (M) 11 % (0-4); ERYTHROBLAST% (NRBC) (M) 4 % (0-0); LYMPHOCYTES #M 24.6 10^3/ul (0.8-2.9); LYMPHOCYTES % (M) 27 % (15-51); MICROCYTOSIS 1+ (0-0); MONOCYTE #M 1.8 10^3/ul (0.3-0.9); MONOCYTES % (M) 2 % (0-11); MYELOCYTES #M 6.3 10^3/ul (0.0-0.0); MYELOCYTES % (M) 7 % (0-0); PLATELET ESTIMATE INCREASED; POIKILOCYTOSIS 3+ (0-0); POLYCHROMASIA 3+ (0-0); SEG NEUT #M 56.6 10^3/ul (1.6-7.5); SEGMENTED NEUTROPHILS (M) % 52 % (39-77)
[2018-12-24 22:23] LABS: PATH REVIEW Y
[2018-12-24] MEDS: PROPOFOL 100 ML IV (22:33)
[2018-12-24] MEDS: VANCOMYCIN 1 GM (PMX) 250 ML IVPB (22:46)
[2018-12-24 23:19] LABS: ADD UMIC YES; UR ASCORBIC ACID NEGATIVE (NEGATIVE); UR BILIRUBIN (Dip) NEGATIVE (NEGATIVE); UR BLOOD (Dip) 3+ mg/dL (NEGATIVE); UR BUDDING YEAST FEW /HPF (NONE SEEN); UR CLARITY TURBID (CLEAR); UR COLOR YELLOW (YELLOW); UR GLUCOSE (Dip) NEGATIVE (NEGATIVE); UR KETONES (Dip) NEGATIVE (NEGATIVE); UR LEUKOCYTE ESTERASE (Dip) 1+ Leu/ul (NEGATIVE); UR NITRITE (Dip) NEGATIVE (NEGATIVE); UR RBC 63 /HPF (0-5); UR SPECIFIC GRAVITY (Dip) 1.015 (1.003-1.030); UR TOTAL PROTEIN (Dip) 2+ mg/dl (NEGATIVE); UR UROBILINOGEN (Dip) NEGATIVE (NEGATIVE); UR WBC > 182 /HPF (0-5)
[2018-12-24] MEDS: SOD CHLORIDE 0.9% 0 ML IV (23:25)
[2018-12-24 23:29] LABS: AADO2 Arterial 156.4 mmHg (7.0-24.0); Allen Test ACCEPTAB; Arterial Base Excess -24.4 mmol/L (-3.0-3); Arterial Blood Gas Oxygen Sat 99.7 mmHG (95.0-98.0); Arterial COHb 0.1 % (0.0-3.0); Arterial HCO3 5.1 mmol/L (22.0-26.0); Arterial MetHb 0.6 % (0.0-1.5); Arterial pCO2 26.9 mmhg (35-45); MODE VENT - AC; Site Right Brachial
[2018-12-24] MEDS ORDERED: VANCOMYCIN IV PER PHARMACY XX (23:30)
[2018-12-25] MEDS ORDERED: IPRATROPIUM (HFA) 12.9 GM INHALER INH
[2018-12-25] MEDS ORDERED: ALBUTEROL HFA 8 GM INHALER INH
[2018-12-25] MEDS ORDERED: ACETAMINOPHEN 650MG/20.3ML CUP PO
[2018-12-25 00:02] LABS: LACTIC ACID 17.8 mmol/L (0.5-2.0)
[2018-12-25] MEDS: PIPER-TAZO 2.25 GM (PMX) 50 ML IVPB ×3 (00:29→21:59)
[2018-12-25 00:30] LABS: D-DIMER 3367.84 ng/ml (<460)
[2018-12-25 00:37] LABS: ADD MAN DIFF? NO
[2018-12-25] MEDS: SODIUM BICARBONATE (IV ADD) 150 MEQ in DEXTROSE 5% 1,000 ML IV (00:42)
[2018-12-25 00:47] LABS: C-REACTIVE PROTEIN 14.2 mg/dl (0.0-0.9)
[2018-12-25 00:59] LABS: ALANINE AMINOTRANSFERASE 48 IU/L (13-69); ALBUMIN 2.5 g/dl (3.3-4.9); ALBUMIN/GLOBULIN RATIO 0.86; ALKALINE PHOSPHATASE 171 IU/L (42-121); ANION GAP 35 (5-13); ASPARTATE AMINO TRANSFERASE 186 IU/L (15-46); BLOOD UREA NITROGEN 89 mg/dl (7-20); CALCIUM 7.2 mg/dl (8.4-10.2); CHLORIDE 101 mmol/L (97-110); CREATINE KINASE 297 IU/L (23-200); CREATININE 3.55 mg/dl (0.44-1.00); Estimated GFR 13 mL/min (>60); GLUCOSE 128 mg/dl (70-220); POTASSIUM 3.5 mmol/L (3.5-5.1); SODIUM 142 mmol/L (135-144); TOTAL PROTEIN 5.4 g/dl (6.1-8.1)
[2018-12-25 01:09] LABS: CK INDEX 4.2
[2018-12-25 01:18] LABS: CARBON DIOXIDE 6 mmol/L (21-31)
[2018-12-25 01:45] LABS: ABNORMAL IP MESSAGE 1; HEMATOCRIT 12.1 % (37.0-47.0); MEAN CORPUSCULAR HEMOGLOBIN 28.7 pg (29.0-33.0); MEAN CORPUSCULAR HGB CONC 27.3 g/dl (32.0-37.0); MEAN CORPUSCULAR VOLUME 105.2 fl (82.0-101.0); MEAN PLATELET VOLUME 9.5 fl (7.4-10.4); NUCLEATED RED BLOOD CELLS% 1.4 /100WBC (0.0-0.0); PLATELET COUNT 553 10^3/UL (140-415); RED BLOOD COUNT 1.15 10^6/ul (4.20-5.40); RED CELL DISTRIBUTION WIDTH 19.9 % (11.5-14.5)
[2018-12-25 01:45] LABS: WHITE BLOOD COUNT 60.8 10^3/ul (4.8-10.8)
[2018-12-25 01:52] LABS: POSITIVE DIFF @See below
[2018-12-25 01:56] LABS: HEMOGLOBIN 3.3 g/dl (12.0-16.0)
[2018-12-25 02:24] LABS: ERYTHROCYTE SEDIMENTATION RATE > 130.0 mm/Hr (0-30)
[2018-12-25 02:41] LABS: LACTIC ACID 10.5 mmol/L (0.5-2.0)
[2018-12-25 02:54] LABS: FIBRIN SPLIT PRODUCT >10 and <40 ug/ml (<10)
[2018-12-25 04:51] LABS: ANISOCYTOSIS 3+ (0-0); BAND NEUTROPHILS #M 7.9 10^3/ul (0.0-0.6); BAND NEUTROPHILS % (M) 13 % (0-4); BASOPHIL #M 0.6 10^3/ul (0.0-0.0); BASOPHILS % (M) 1 % (0-2); GIANT THROMBO% (M) 2 % (0-0); LYMPHOCYTES #M 10.9 10^3/ul (0.8-2.9); LYMPHOCYTES % (M) 18 % (15-51); METAMYELOCYTES #M 0.6 10^3/ul (0.0-0.0); METAMYELOCYTES %M 1 % (0-0); MICROCYTOSIS 2+ (0-0); MONOCYTES % (M) 5 % (0-11); MYELOCYTES #M 1.8 10^3/ul (0.0-0.0); MYELOCYTES % (M) 3 % (0-0); PLATELET ESTIMATE INCREASED; POIKILOCYTOSIS 3+ (0-0); POLYCHROMASIA 3+ (0-0); PROMYELOCYTES #M 1.2 10^3/ul (0-0); PROMYELOCYTES % (M) 2 % (0-0); SEG NEUT #M 39.5 10^3/ul (1.6-7.5); SEGMENTED NEUTROPHILS (M) % 57 % (39-77); SMUDGE%M 1 % (0-0)
[2018-12-25 05:30] LABS: ABNORMAL IP MESSAGE 1; MEAN CORPUSCULAR HEMOGLOBIN 28.6 pg (29.0-33.0); MEAN CORPUSCULAR HGB CONC 31.8 g/dl (32.0-37.0); MEAN CORPUSCULAR VOLUME 89.9 fl (82.0-101.0); MEAN PLATELET VOLUME 9.1 fl (7.4-10.4); NUCLEATED RED BLOOD CELLS% 0.7 /100WBC (0.0-0.0); PLATELET COUNT 312 10^3/UL (140-415); RED BLOOD COUNT 1.89 10^6/ul (4.20-5.40)
[2018-12-25 05:30] LABS: WHITE BLOOD COUNT 14.4 10^3/ul (4.8-10.8)
[2018-12-25 06:03] LABS: CREATINE KINASE 323 IU/L (23-200)
[2018-12-25 06:04] LABS: CK INDEX 4.9
[2018-12-25 06:06] LABS: LACTIC ACID 4.6 mmol/L (0.5-2.0)
[2018-12-25 06:07] LABS: POSITIVE DIFF @See below
[2018-12-25 06:10] LABS: ALANINE AMINOTRANSFERASE 130 IU/L (13-69); ALBUMIN 2.2 g/dl (3.3-4.9); ALBUMIN/GLOBULIN RATIO 0.84; ALKALINE PHOSPHATASE 168 IU/L (42-121); ANION GAP 24 (5-13); ASPARTATE AMINO TRANSFERASE 433 IU/L (15-46); BLOOD UREA NITROGEN 92 mg/dl (7-20); CALCIUM 6.7 mg/dl (8.4-10.2); CARBON DIOXIDE 17 mmol/L (21-31); CHLORIDE 100 mmol/L (97-110); CREATININE 3.12 mg/dl (0.44-1.00); Estimated GFR 15 mL/min (>60); GLUCOSE 197 mg/dl (70-220); SODIUM 141 mmol/L (135-144); TOTAL PROTEIN 4.8 g/dl (6.1-8.1)
[2018-12-25 06:11] LABS: ADD MAN DIFF? YES; HEMOGLOBIN 5.4 g/dl (12.0-16.0)
[2018-12-25 06:17] LABS: AADO2 Arterial 71.6 mmHg (7.0-24.0); Allen Test ACCEPTAB; Arterial Base Excess -7.1 mmol/L (-3.0-3); Arterial Blood Gas Oxygen Sat 98.6 mmHG (95.0-98.0); Arterial COHb 0.3 % (0.0-3.0); Arterial HCO3 16.6 mmol/L (22.0-26.0); Arterial MetHb 0.3 % (0.0-1.5); Arterial pCO2 26.5 mmhg (35-45); MODE VENT - AC; Site Right Radial
[2018-12-25 06:30] LABS: POTASSIUM 2.7 mmol/L (3.5-5.1)
[2018-12-25 06:37] LABS: INR 1.94; PROTIME 22.2 Sec (11.9-14.9); PT RATIO 1.7
[2018-12-25 06:38] LABS: PARTIAL THROMBOPLASTIN TIME 31.1 Sec (23.0-35.0)
[2018-12-25 07:13] LABS: BURR CELLS 1+ (0-0); DIMORPHIC RBC 1+ (0-0); EOSINOPHILS % (M) 1 % (0-7); ERYTHROBLAST% (NRBC) (M) 1 % (0-0); METAMYELOCYTES #M 0.2 10^3/ul (0.0-0.0); METAMYELOCYTES %M 2 % (0-0); MICROCYTOSIS 1+ (0-0); MYELOCYTES #M 0.1 10^3/ul (0.0-0.0); MYELOCYTES % (M) 1 % (0-0); PLATELET ESTIMATE NORMAL
[2018-12-25] MEDS: POTASSIUM CHLORIDE 50 ML IVPB ×6 (07:25→20:35)
[2018-12-25] MEDS: PANTOPRAZOLE 40 MG INJ IV (07:26)
[2018-12-25] MEDS: PROPOFOL 100 ML IV ×3 (10:30→21:54)
[2018-12-25] MEDS ORDERED: POTASSIUM CHLORIDE 100 ML IVPB (10:30)
[2018-12-25] MEDS ORDERED: GLUCOSE GEL 15 GRAM TUBE BUCCAL (11:00)
[2018-12-25] MEDS ORDERED: GLUCOSE GEL 15 GRAM TUBE PO ×2 (11:00)
[2018-12-25] MEDS ORDERED: GLUCAGON 1 MG INJ IM (11:00)
[2018-12-25] MEDS ORDERED: DEXTROSE 50% 50 ML SYRINGE IV ×2 (11:00)
[2018-12-25 11:47] LABS: ABNORMAL IP MESSAGE 1; HEMATOCRIT 24.7 % (37.0-47.0); HEMOGLOBIN 8.1 g/dl (12.0-16.0); MEAN CORPUSCULAR HEMOGLOBIN 28.4 pg (29.0-33.0); MEAN CORPUSCULAR HGB CONC 32.8 g/dl (32.0-37.0); MEAN CORPUSCULAR VOLUME 86.7 fl (82.0-101.0); MEAN PLATELET VOLUME 8.8 fl (7.4-10.4); NUCLEATED RED BLOOD CELLS% 0.4 /100WBC (0.0-0.0); PLATELET COUNT 246 10^3/UL (140-415); RED BLOOD COUNT 2.85 10^6/ul (4.20-5.40); RED CELL DISTRIBUTION WIDTH 14.9 % (11.5-14.5)
[2018-12-25 11:48] LABS: POSITIVE DIFF @See below
[2018-12-25 11:49] LABS: ADD MAN DIFF? YES
[2018-12-25 12:03] LABS: LACTIC ACID 1.5 mmol/L (0.5-2.0)
[2018-12-25 12:03] LABS: ANION GAP 20 (5-13); BLOOD UREA NITROGEN 93 mg/dl (7-20); CALCIUM 6.6 mg/dl (8.4-10.2); CARBON DIOXIDE 20 mmol/L (21-31); CHLORIDE 102 mmol/L (97-110); CREATINE KINASE 303 IU/L (23-200); CREATININE 2.87 mg/dl (0.44-1.00); Estimated GFR 17 mL/min (>60); GLUCOSE 148 mg/dl (70-220); SODIUM 142 mmol/L (135-144)
[2018-12-25 12:15] LABS: CK INDEX 4.3
[2018-12-25 12:17] LABS: POTASSIUM 2.8 mmol/L (3.5-5.1)
[2018-12-25] MEDS: SOD CHLORIDE 0.9% 1,000 ML IV ×2 (12:24→22:03)
[2018-12-25] MEDS: CALCIUM GLUCONATE 10% 2 GM in DEXTROSE 5% 100 ML IVPB (12:30)
[2018-12-25] MEDS: INSULIN ASPART [NOVOLOG] 3 ML PEN SC ×3 (12:34→21:00)
[2018-12-25 13:11] LABS: ANISOCYTOSIS 1+ (0-0); BAND NEUTROPHILS % (M) 7 % (0-4); LYMPHOCYTES % (M) 7 % (15-51); POIKILOCYTOSIS 1+ (0-0); POLYCHROMASIA 1+ (0-0); PROMYELOCYTES #M 0.2 10^3/ul (0-0); PROMYELOCYTES % (M) 2 % (0-0); SEG NEUT #M 12.1 10^3/ul (1.6-7.5); SEGMENTED NEUTROPHILS (M) % 83 % (39-77); SMUDGE%M 6 % (0-0)
[2018-12-25] MEDS: COLLAGENASE 5 GM (UD JAR) TOP (17:00)
[2018-12-25 17:19] LABS: HEMATOCRIT 23.3 % (37.0-47.0); HEMOGLOBIN 7.9 g/dl (12.0-16.0); MEAN CORPUSCULAR HEMOGLOBIN 29.3 pg (29.0-33.0); MEAN CORPUSCULAR HGB CONC 33.9 g/dl (32.0-37.0); MEAN CORPUSCULAR VOLUME 86.3 fl (82.0-101.0); MEAN PLATELET VOLUME 8.9 fl (7.4-10.4); NUCLEATED RED BLOOD CELLS% 0.5 /100WBC (0.0-0.0); PLATELET COUNT 208 10^3/UL (140-415); RED CELL DISTRIBUTION WIDTH 15.3 % (11.5-14.5)
[2018-12-25 17:19] LABS: WHITE BLOOD COUNT 13.1 10^3/ul (4.8-10.8)
[2018-12-25 17:20] LABS: LACTIC ACID 0.9 mmol/L (0.5-2.0)
[2018-12-25 17:21] LABS: CREATINE KINASE 221 IU/L (23-200)
[2018-12-25 17:22] LABS: POSITIVE DIFF @See below
[2018-12-25 17:23] LABS: INR 1.45; PARTIAL THROMBOPLASTIN TIME 27.1 Sec (23.0-35.0); PROTIME 17.7 Sec (11.9-14.9); PT RATIO 1.4
[2018-12-25 17:24] LABS: ADD MAN DIFF? YES
[2018-12-25 17:33] LABS: CK INDEX 3.8; CK-MB 8.33 ng/ml (0.0-2.4)
[2018-12-25 19:39] LABS: ANISOCYTOSIS 2+ (0-0); BAND NEUTROPHILS #M 1.4 10^3/ul (0.0-0.6); BAND NEUTROPHILS % (M) 11 % (0-4); BURR CELLS 1+ (0-0); LYMPHOCYTES #M 1.5 10^3/ul (0.8-2.9); LYMPHOCYTES % (M) 12 % (15-51); MICROCYTOSIS 1+ (0-0); MYELOCYTES #M 0.2 10^3/ul (0.0-0.0); MYELOCYTES % (M) 2 % (0-0); OVALOCYTES 1+ (0-0); PLATELET ESTIMATE NORMAL; POIKILOCYTOSIS 1+ (0-0); POLYCHROMASIA 1+ (0-0); SEGMENTED NEUTROPHILS (M) % 75 % (39-77); SMUDGE%M 44 % (0-0)
[2018-12-25] MEDS: FENTAnyl (DRIP) 1000 mcg/100mL 100 ML IV (21:47)
[2018-12-26] MEDS: INSULIN ASPART [NOVOLOG] 3 ML PEN SC ×6 (01:24→21:00)
[2018-12-26] MEDS: ACCU-CHEK XX (01:24)
[2018-12-26] MEDS: PROPOFOL 100 ML IV ×3 (04:47→23:08)
[2018-12-26] MEDS: PIPER-TAZO 2.25 GM (PMX) 50 ML IVPB ×3 (05:39→18:00)
[2018-12-26] MEDS: SOD CHLORIDE 0.9% 1,000 ML IV ×2 (05:39→16:35)
[2018-12-26 05:43] LABS: HAAIG REFLEX REFLEX FILED
[2018-12-26 06:07] LABS: INR 1.53; PROTIME 18.5 Sec (11.9-14.9); PT RATIO 1.4
[2018-12-26 06:08] LABS: PARTIAL THROMBOPLASTIN TIME 27.2 Sec (23.0-35.0)
[2018-12-26 06:26] LABS: CHOLESTEROL 85 mg/dl (100-200)
[2018-12-26 06:31] LABS: VANCOMYCIN,RANDOM 8.7 ug/ml
[2018-12-26 06:40] LABS: LIPASE 1234 U/L (23-300)
[2018-12-26 06:53] LABS: ALANINE AMINOTRANSFERASE 147 IU/L (13-69); ALBUMIN 2.2 g/dl (3.3-4.9); ALBUMIN/GLOBULIN RATIO 0.81; ALKALINE PHOSPHATASE 180 IU/L (42-121); ANION GAP 12 (5-13); ASPARTATE AMINO TRANSFERASE 322 IU/L (15-46); BLOOD UREA NITROGEN 82 mg/dl (7-20); CALCIUM 7.3 mg/dl (8.4-10.2); CARBON DIOXIDE 18 mmol/L (21-31); CHLORIDE 115 mmol/L (97-110); CREATININE 2.53 mg/dl (0.44-1.00); Estimated GFR 20 mL/min (>60); GLUCOSE 119 mg/dl (70-220); SODIUM 145 mmol/L (135-144); TOTAL PROTEIN 4.9 g/dl (6.1-8.1)
[2018-12-26 06:55] LABS: HEPATITIS B SURFACE ANTIGEN NEGATIVE (NEGATIVE)
[2018-12-26 06:56] LABS: POTASSIUM 2.9 mmol/L (3.5-5.1)
[2018-12-26 07:02] LABS: ABNORMAL IP MESSAGE 1; HEMATOCRIT 20.7 % (37.0-47.0); MEAN CORPUSCULAR HEMOGLOBIN 29.2 pg (29.0-33.0); MEAN CORPUSCULAR HGB CONC 33.8 g/dl (32.0-37.0); MEAN CORPUSCULAR VOLUME 86.3 fl (82.0-101.0); MEAN PLATELET VOLUME 9.2 fl (7.4-10.4); NUCLEATED RED BLOOD CELLS% 0.3 /100WBC (0.0-0.0); PLATELET COUNT 150 10^3/UL (140-415); RED CELL DISTRIBUTION WIDTH 15.9 % (11.5-14.5)
[2018-12-26 07:08] LABS: POSITIVE DIFF @See below
[2018-12-26 07:11] LABS: ADD MAN DIFF? YES
[2018-12-26 07:13] LABS: HEPATITIS B CORE ANTIBODY NEGATIVE (NEGATIVE); HEPATITIS C VIRAL ANTIBODY NEGATIVE (NEGATIVE); HIV 1&2 ANTIBODY NEGATIVE (NEGATIVE)
[2018-12-26 07:14] LABS: ANION GAP 15 (5-13); BLOOD UREA NITROGEN 81 mg/dl (7-20); CALCIUM 7.3 mg/dl (8.4-10.2); CARBON DIOXIDE 18 mmol/L (21-31); CHLORIDE 113 mmol/L (97-110); CREATININE 2.46 mg/dl (0.44-1.00); Estimated GFR 20 mL/min (>60); GLUCOSE 119 mg/dl (70-220); PHOSPHORUS 3.5 mg/dl (2.5-4.9); SODIUM 146 mmol/L (135-144)
[2018-12-26 07:30] LABS: POTASSIUM 2.7 mmol/L (3.5-5.1)
[2018-12-26] MEDS: FENTAnyl (DRIP) 1000 mcg/100mL 100 ML IV ×2 (07:38→20:45)
[2018-12-26 07:51] LABS: ANISOCYTOSIS 2+ (0-0); BAND NEUTROPHILS #M 0.4 10^3/ul (0.0-0.6); BAND NEUTROPHILS % (M) 4 % (0-4); BASOPHIL #M 0.1 10^3/ul (0.0-0.0); BASOPHILS % (M) 1 % (0-2); BURR CELLS 1+ (0-0); EOSINOPHILS % (M) 1 % (0-7); ERYTHROBLAST% (NRBC) (M) 1 % (0-0); LYMPHOCYTES #M 1.4 10^3/ul (0.8-2.9); LYMPHOCYTES % (M) 14 % (15-51); MICROCYTOSIS 2+ (0-0); PLATELET ESTIMATE NORMAL; POIKILOCYTOSIS 1+ (0-0); POLYCHROMASIA 3+ (0-0); PROMYELOCYTES #M 0.1 10^3/ul (0-0); PROMYELOCYTES % (M) 1 % (0-0); SEG NEUT #M 7.9 10^3/ul (1.6-7.5); SEGMENTED NEUTROPHILS (M) % 79 % (39-77); SMUDGE%M 8 % (0-0); TEAR DROP CELLS 1+ (0-0)
[2018-12-26] MEDS: POTASSIUM CHLORIDE 50 ML IVPB ×3 (09:05→12:38)
[2018-12-26] MEDS: COLLAGENASE 5 GM (UD JAR) TOP (09:05)
[2018-12-26] MEDS: FAMOTIDINE 20 MG INJ IV (09:05)
[2018-12-26] MEDS: MAGNESIUM SULFATE 2 GM/50 ML 50 ML IVPB (11:54)
[2018-12-26] MEDS: VANCOMYCIN 1 GM 250 ML IVPB (14:27)
[2018-12-26 17:45] LABS: ANION GAP 11 (5-13); BLOOD UREA NITROGEN 72 mg/dl (7-20); CALCIUM 7.6 mg/dl (8.4-10.2); CARBON DIOXIDE 17 mmol/L (21-31); CHLORIDE 119 mmol/L (97-110); CREATININE 2.16 mg/dl (0.44-1.00); Estimated GFR 23 mL/min (>60); GLUCOSE 99 mg/dl (70-220); POTASSIUM 3.2 mmol/L (3.5-5.1); SODIUM 147 mmol/L (135-144)
[2018-12-26 17:46] LABS: INR 1.35; PROTIME 16.8 Sec (11.9-14.9); PT RATIO 1.3
[2018-12-26 17:47] LABS: PARTIAL THROMBOPLASTIN TIME 25.6 Sec (23.0-35.0)
[2018-12-26] MEDS: POTASSIUM CHLORIDE 100 ML IVPB (20:20)
[2018-12-26 21:50] LABS: OCCULT BLOOD STOOL POSITIVE (NEGATIVE)
[2018-12-26] MEDS: HYDROmorphONE 0.2 MG/ML PCA IV ×3 (22:22→23:00)
[2018-12-27] MEDS: PIPER-TAZO 2.25 GM (PMX) 50 ML IVPB ×5 (00:48→23:40)
[2018-12-27] MEDS: HYDROmorphONE 0.2 MG/ML PCA IV ×12 (01:00→23:00)
[2018-12-27] MEDS: INSULIN ASPART [NOVOLOG] 3 ML PEN SC ×6 (01:00→21:00)
[2018-12-27] MEDS: ACCU-CHEK XX (02:46)
[2018-12-27] MEDS: SOD CHLORIDE 0.9% 1,000 ML IV (02:51)
[2018-12-27 05:34] LABS: ABNORMAL IP MESSAGE 1; HEMATOCRIT 20.8 % (37.0-47.0); MEAN CORPUSCULAR HEMOGLOBIN 28.4 pg (29.0-33.0); MEAN CORPUSCULAR HGB CONC 31.7 g/dl (32.0-37.0); MEAN CORPUSCULAR VOLUME 89.7 fl (82.0-101.0); MEAN PLATELET VOLUME 9.8 fl (7.4-10.4); NUCLEATED RED BLOOD CELLS% 0.6 /100WBC (0.0-0.0); PLATELET COUNT 125 10^3/UL (140-415); RED BLOOD COUNT 2.32 10^6/ul (4.20-5.40); RED CELL DISTRIBUTION WIDTH 16.7 % (11.5-14.5)
[2018-12-27 06:06] LABS: MAGNESIUM 2.5 mg/dl (1.7-2.5)
[2018-12-27 06:06] LABS: PHOSPHORUS 3.8 mg/dl (2.5-4.9)
[2018-12-27 06:25] LABS: HEMOGLOBIN 6.6 g/dl (12.0-16.0); POSITIVE DIFF @See below
[2018-12-27 06:26] LABS: ADD MAN DIFF? YES; ALANINE AMINOTRANSFERASE 115 IU/L (13-69); ALBUMIN 2.4 g/dl (3.3-4.9); ALBUMIN/GLOBULIN RATIO 0.77; ALKALINE PHOSPHATASE 187 IU/L (42-121); ANION GAP 15 (5-13); ASPARTATE AMINO TRANSFERASE 124 IU/L (15-46); BILIRUBIN,INDIRECT 0.1 mg/dl (0-1.1); BILIRUBIN,TOTAL 0.1 mg/dl (0.2-1.3); BLOOD UREA NITROGEN 62 mg/dl (7-20); CALCIUM 8.3 mg/dl (8.4-10.2); CARBON DIOXIDE 17 mmol/L (21-31); CHLORIDE 120 mmol/L (97-110); CREATININE 1.83 mg/dl (0.44-1.00); Estimated GFR 28 mL/min (>60); GLUCOSE 95 mg/dl (70-220); POTASSIUM 3.1 mmol/L (3.5-5.1); SODIUM 152 mmol/L (135-144); TOTAL PROTEIN 5.5 g/dl (6.1-8.1)
[2018-12-27] MEDS: PROPOFOL 100 ML IV ×3 (07:31→21:02)
[2018-12-27 07:50] LABS: ANISOCYTOSIS 2+ (0-0); BAND NEUTROPHILS % (M) 10 % (0-4); ERYTHROBLAST% (NRBC) (M) 1 % (0-0); LYMPHOCYTES #M 1.3 10^3/ul (0.8-2.9); LYMPHOCYTES % (M) 13 % (15-51); METAMYELOCYTES #M 0.1 10^3/ul (0.0-0.0); METAMYELOCYTES %M 1 % (0-0); MICROCYTOSIS 1+ (0-0); MYELOCYTES #M 0.1 10^3/ul (0.0-0.0); MYELOCYTES % (M) 1 % (0-0); PLATELET ESTIMATE DECREASED; POIKILOCYTOSIS 1+ (0-0); POLYCHROMASIA 1+ (0-0); SEG NEUT #M 7.6 10^3/ul (1.6-7.5); SEGMENTED NEUTROPHILS (M) % 75 % (39-77); SMUDGE%M 2 % (0-0)
[2018-12-27] MEDS: COLLAGENASE 5 GM (UD JAR) TOP (09:40)
[2018-12-27] MEDS: FAMOTIDINE 20 MG INJ IV (09:40)
[2018-12-27] MEDS: POTASSIUM CHLORIDE 100 ML IVPB ×2 (09:47→11:00)
[2018-12-27] MEDS: DEXTROSE 5% 1,000 ML IV ×3 (09:54→21:02)
[2018-12-27 10:27] LABS: IMMEDIATE SPIN CROSSMATCH 1 5
[2018-12-27 13:30] LABS: AADO2 Arterial 97.1 mmHg (7.0-24.0); Allen Test ACCEPTAB; Arterial Base Excess -7.8 mmol/L (-3.0-3); Arterial Blood Gas Oxygen Sat 98.4 mmHG (95.0-98.0); Arterial COHb 0.3 % (0.0-3.0); Arterial Fraction of Oxyhgb 97.8 % (93.0-99.0); Arterial HCO3 16.7 mmol/L (22.0-26.0); Arterial MetHb 0.3 % (0.0-1.5); Blood Gas PS 10; MODE VENT - CPAP; Site Right Radial
[2018-12-27 15:06] LABS: ANION GAP 13 (5-13); BLOOD UREA NITROGEN 55 mg/dl (7-20); CALCIUM 8.5 mg/dl (8.4-10.2); CARBON DIOXIDE 17 mmol/L (21-31); CHLORIDE 121 mmol/L (97-110); CREATININE 1.61 mg/dl (0.44-1.00); Estimated GFR 33 mL/min (>60); GLUCOSE 125 mg/dl (70-220); POTASSIUM 3.8 mmol/L (3.5-5.1); SODIUM 151 mmol/L (135-144)
[2018-12-27] MEDS: VANCOMYCIN 750 MG (PMX) 250 ML IVPB (16:00)
[2018-12-27] MEDS: FENTAnyl (DRIP) 1000 mcg/100mL 100 ML IV ×3 (16:30→23:06)
[2018-12-27 17:15] LABS: ADD UMIC YES; UR ASCORBIC ACID NEGATIVE (NEGATIVE); UR BACTERIA MANY /HPF (NONE SEEN); UR BILIRUBIN (Dip) NEGATIVE (NEGATIVE); UR BLOOD (Dip) 3+ mg/dL (NEGATIVE); UR CLARITY TURBID (CLEAR); UR COLOR YELLOW (YELLOW); UR GLUCOSE (Dip) NEGATIVE (NEGATIVE); UR KETONES (Dip) NEGATIVE (NEGATIVE); UR LEUKOCYTE ESTERASE (Dip) 3+ Leu/ul (NEGATIVE); UR NITRITE (Dip) NEGATIVE (NEGATIVE); UR RBC > 182 /HPF (0-5); UR SPECIFIC GRAVITY (Dip) 1.017 (1.003-1.030); UR TOTAL PROTEIN (Dip) 2+ mg/dl (NEGATIVE); UR UROBILINOGEN (Dip) NEGATIVE (NEGATIVE); UR WBC > 182 /HPF (0-5)
[2018-12-27 17:22] LABS: SODIUM,URINE RANDOM 33 mmol/L (30-90)
[2018-12-27 18:52] LABS: ADD MAN DIFF? NO
[2018-12-27 18:54] LABS: WHITE BLOOD COUNT 7.8 10^3/ul (4.8-10.8)
[2018-12-27 18:54] LABS: ABNORMAL IP MESSAGE 1; BASOPHILS % 0.3 % (0.0-2.0); EOSINOPHILS # 0.1 10^3/ul (0.0-0.5); EOSINOPHILS % 1.4 % (0.0-7.0); HEMATOCRIT 22.5 % (37.0-47.0); HEMOGLOBIN 7.2 g/dl (12.0-16.0); LYMPHOCYTES # 1.4 10^3/ul (0.8-2.9); LYMPHOCYTES % 17.7 % (15.0-51.0); MEAN CORPUSCULAR HEMOGLOBIN 28.7 pg (29.0-33.0); MEAN CORPUSCULAR VOLUME 89.6 fl (82.0-101.0); MEAN PLATELET VOLUME 9.6 fl (7.4-10.4); MONOCYTE # 0.6 10^3/ul (0.3-0.9); MONOCYTES % 7.1 % (0.0-11.0); NEUTROPHIL # 5.3 10^3/ul (1.6-7.5); NEUTROPHILS % 68.5 % (39.0-77.0); NUCLEATED RED BLOOD CELLS # 0.1 10^3/ul (0.0-0.0); PLATELET COUNT 90 10^3/UL (140-415); RED BLOOD COUNT 2.51 10^6/ul (4.20-5.40)
[2018-12-27 19:05] LABS: POSITIVE DIFF @See below
[2018-12-27 19:13] LABS: ANION GAP 11 (5-13); BLOOD UREA NITROGEN 52 mg/dl (7-20); CALCIUM 8.2 mg/dl (8.4-10.2); CARBON DIOXIDE 17 mmol/L (21-31); CHLORIDE 122 mmol/L (97-110); CREATININE 1.54 mg/dl (0.44-1.00); Estimated GFR 35 mL/min (>60); GLUCOSE 113 mg/dl (70-220); POTASSIUM 3.5 mmol/L (3.5-5.1); SODIUM 150 mmol/L (135-144)
[2018-12-27 20:31] LABS: ANISOCYTOSIS 1+ (0-0); BAND NEUTROPHILS % (M) 1 % (0-4); BASOPHILS % (M) 1 % (0-2); EOSINOPHILS % (M) 6 % (0-7); LYMPHOCYTES #M 0.7 10^3/ul (0.8-2.9); LYMPHOCYTES % (M) 10 % (15-51); MICROCYTOSIS 1+ (0-0); MONOCYTE #M 0.4 10^3/ul (0.3-0.9); MONOCYTES % (M) 6 % (0-11); MYELOCYTES #M 0.1 10^3/ul (0.0-0.0); MYELOCYTES % (M) 2 % (0-0); SEG NEUT #M 5.8 10^3/ul (1.6-7.5); SEGMENTED NEUTROPHILS (M) % 74 % (39-77); SMUDGE%M 9 % (0-0)
[2018-12-28] MEDS: INSULIN ASPART [NOVOLOG] 3 ML PEN SC ×6 (01:00→21:00)
[2018-12-28] MEDS: HYDROmorphONE 0.2 MG/ML PCA IV ×12 (01:00→23:00)
[2018-12-28] MEDS: ACCU-CHEK XX (01:16)
[2018-12-28 02:56] LABS: IMMEDIATE SPIN CROSSMATCH 1 1
[2018-12-28] MEDS: PROPOFOL 100 ML IV ×2 (03:18→09:56)
[2018-12-28] MEDS: PIPER-TAZO 2.25 GM (PMX) 50 ML IVPB ×4 (05:39→23:45)
[2018-12-28 08:01] LABS: ABNORMAL IP MESSAGE 1; HEMATOCRIT 26.5 % (37.0-47.0); HEMOGLOBIN 8.5 g/dl (12.0-16.0); MEAN CORPUSCULAR HGB CONC 32.1 g/dl (32.0-37.0); MEAN CORPUSCULAR VOLUME 90.4 fl (82.0-101.0); MEAN PLATELET VOLUME 10.4 fl (7.4-10.4); NUCLEATED RED BLOOD CELLS% 0.5 /100WBC (0.0-0.0); PLATELET COUNT 108 10^3/UL (140-415); RED BLOOD COUNT 2.93 10^6/ul (4.20-5.40); RED CELL DISTRIBUTION WIDTH 15.7 % (11.5-14.5)
[2018-12-28 08:11] LABS: ADD MAN DIFF? YES; POSITIVE DIFF @See below
[2018-12-28 08:29] LABS: MAGNESIUM 2.1 mg/dl (1.7-2.5)
[2018-12-28 08:29] LABS: PHOSPHORUS 3.8 mg/dl (2.5-4.9)
[2018-12-28 08:30] LABS: ALANINE AMINOTRANSFERASE 72 IU/L (13-69); ALBUMIN 2.3 g/dl (3.3-4.9); ALBUMIN/GLOBULIN RATIO 0.79; ALKALINE PHOSPHATASE 133 IU/L (42-121); ANION GAP 11 (5-13); ASPARTATE AMINO TRANSFERASE 35 IU/L (15-46); BILIRUBIN,INDIRECT 0.1 mg/dl (0-1.1); BILIRUBIN,TOTAL 0.1 mg/dl (0.2-1.3); BLOOD UREA NITROGEN 43 mg/dl (7-20); CALCIUM 8.4 mg/dl (8.4-10.2); CARBON DIOXIDE 14 mmol/L (21-31); CHLORIDE 123 mmol/L (97-110); Estimated GFR 39 mL/min (>60); GLUCOSE 100 mg/dl (70-220); POTASSIUM 3.3 mmol/L (3.5-5.1); SODIUM 148 mmol/L (135-144); TOTAL PROTEIN 5.2 g/dl (6.1-8.1)
[2018-12-28] MEDS ORDERED: TPN 1,000 ML IV (09:39)
[2018-12-28] MEDS: POTASSIUM CHLORIDE 100 ML IVPB ×2 (09:52→12:14)
[2018-12-28] MEDS: COLLAGENASE 5 GM (UD JAR) TOP (09:52)
[2018-12-28] MEDS: FAMOTIDINE 20 MG INJ IV (09:59)
[2018-12-28] MEDS ORDERED: FAT EMULSION 20% 250 ML IV (10:00)
[2018-12-28 10:20] LABS: ANISOCYTOSIS 2+ (0-0); BAND NEUTROPHILS % (M) 1 % (0-4); BURR CELLS 2+ (0-0); ERYTHROBLAST% (NRBC) (M) 1 % (0-0); LYMPHOCYTES #M 0.8 10^3/ul (0.8-2.9); LYMPHOCYTES % (M) 10 % (15-51); METAMYELOCYTES #M 0.1 10^3/ul (0.0-0.0); METAMYELOCYTES %M 2 % (0-0); MICROCYTOSIS 2+ (0-0); MONOCYTE #M 0.2 10^3/ul (0.3-0.9); MONOCYTES % (M) 3 % (0-11); PLATELET ESTIMATE SIG DECREASED; POIKILOCYTOSIS 2+ (0-0); POLYCHROMASIA 3+ (0-0); REACTIVE LYMPHOCYTES #M 0.4 10^3/ul (0.0-0.0); REACTIVE LYMPHOCYTES% (M) 6 % (0-0); SEG NEUT #M 6.2 10^3/ul (1.6-7.5); SEGMENTED NEUTROPHILS (M) % 78 % (39-77); SMUDGE%M 10 % (0-0)
[2018-12-28] MEDS ORDERED: SODIUM BICARBONATE (IV ADD) 100 MEQ in DEXTROSE 5% 1,000 ML IV (11:00)
[2018-12-28 11:32] LABS: ALANINE AMINOTRANSFERASE 73 IU/L (13-69); ALBUMIN 2.4 g/dl (3.3-4.9); ALBUMIN/GLOBULIN RATIO 0.77; ALKALINE PHOSPHATASE 137 IU/L (42-121); ANION GAP 12 (5-13); ASPARTATE AMINO TRANSFERASE 35 IU/L (15-46); BILIRUBIN,INDIRECT 0.2 mg/dl (0-1.1); BILIRUBIN,TOTAL 0.2 mg/dl (0.2-1.3); BLOOD UREA NITROGEN 41 mg/dl (7-20); CALCIUM 8.4 mg/dl (8.4-10.2); CARBON DIOXIDE 16 mmol/L (21-31); CHLORIDE 119 mmol/L (97-110); CREATININE 1.33 mg/dl (0.44-1.00); Estimated GFR 41 mL/min (>60); GLUCOSE 93 mg/dl (70-220); MAGNESIUM 2.1 mg/dl (1.7-2.5); PHOSPHORUS 3.8 mg/dl (2.5-4.9); POTASSIUM 3.4 mmol/L (3.5-5.1); SODIUM 147 mmol/L (135-144); TOTAL PROTEIN 5.5 g/dl (6.1-8.1); TRIGLYCERIDES 233 mg/dl (0-149)
[2018-12-28 11:46] LABS: AADO2 Arterial 99.9 mmHg (7.0-24.0); Allen Test ACCEPTAB; Arterial Base Excess -9.4 mmol/L (-3.0-3); Arterial Blood Gas Oxygen Sat 93.9 mmHG (95.0-98.0); Arterial COHb 0.3 % (0.0-3.0); Arterial Fraction of Oxyhgb 93.3 % (93.0-99.0); Arterial HCO3 15.9 mmol/L (22.0-26.0); Arterial MetHb 0.3 % (0.0-1.5); Arterial pCO2 32.4 mmhg (35-45); Blood Gas PS 10; FACTOR VIII ACTIVITY 402 % normal (50-180); MODE VENT - CPAP; Site Right Radial
[2018-12-28] MEDS: DEXTROSE 5% 1,000 ML IV ×2 (12:15→18:06)
[2018-12-28 13:00] LABS: PREALBUMIN 10.1 mg/dl (17.6-36.0)
[2018-12-28 14:50] LABS: CREATININE, RANDOM URINE 37 mg/dL (20-275); MICROALBUMIN 14.6 mg/dL; MICROALBUMIN/CREATININE RATIO 395 (<30)
[2018-12-28] MEDS: NA BICARBONATE 8.4% 50 ML SYG IV (16:00)
[2018-12-28] MEDS: VANCOMYCIN 750 MG (PMX) 250 ML IVPB (18:05)
[2018-12-29] MEDS: INSULIN ASPART [NOVOLOG] 3 ML PEN SC ×6 (01:00→21:00)
[2018-12-29] MEDS: HYDROmorphONE 0.2 MG/ML PCA IV ×12 (01:00→23:00)
[2018-12-29] MEDS: PIPER-TAZO 2.25 GM (PMX) 50 ML IVPB (05:19)
[2018-12-29] MEDS: DEXTROSE 5% 1,000 ML IV (05:22)
[2018-12-29 05:30] LABS: ADD MAN DIFF? NO
[2018-12-29 05:32] LABS: BASOPHIL # 0.1 10^3/ul (0.0-0.1); BASOPHILS % 0.5 % (0.0-2.0); EOSINOPHILS # 0.2 10^3/ul (0.0-0.5); EOSINOPHILS % 2.1 % (0.0-7.0); LYMPHOCYTES # 1.5 10^3/ul (0.8-2.9); LYMPHOCYTES % 13.6 % (15.0-51.0); MEAN CORPUSCULAR HEMOGLOBIN 29.2 pg (29.0-33.0); MEAN CORPUSCULAR HGB CONC 32.1 g/dl (32.0-37.0); MEAN CORPUSCULAR VOLUME 90.9 fl (82.0-101.0); MEAN PLATELET VOLUME 10.4 fl (7.4-10.4); MONOCYTE # 0.8 10^3/ul (0.3-0.9); MONOCYTES % 7.5 % (0.0-11.0); NEUTROPHIL # 7.8 10^3/ul (1.6-7.5); NEUTROPHILS % 72.4 % (39.0-77.0); PLATELET COUNT 134 10^3/UL (140-415); RED BLOOD COUNT 3.08 10^6/ul (4.20-5.40); RED CELL DISTRIBUTION WIDTH 15.5 % (11.5-14.5)
[2018-12-29 05:32] LABS: WHITE BLOOD COUNT 10.8 10^3/ul (4.8-10.8)
[2018-12-29 06:10] LABS: ANION GAP 11 (5-13); BLOOD UREA NITROGEN 34 mg/dl (7-20); CALCIUM 8.3 mg/dl (8.4-10.2); CARBON DIOXIDE 18 mmol/L (21-31); CHLORIDE 117 mmol/L (97-110); CREATININE 1.27 mg/dl (0.44-1.00); Estimated GFR 43 mL/min (>60); GLUCOSE 100 mg/dl (70-220); MAGNESIUM 1.9 mg/dl (1.7-2.5); PHOSPHORUS 3.6 mg/dl (2.5-4.9); POTASSIUM 3.4 mmol/L (3.5-5.1); SODIUM 146 mmol/L (135-144)
[2018-12-29] MEDS: MAGNESIUM SULFATE 2 GM/50 ML 50 ML IVPB (08:30)
[2018-12-29] MEDS: POTASSIUM CHLORIDE 100 ML IVPB ×2 (08:30→10:45)
[2018-12-29] MEDS: FAMOTIDINE 20 MG INJ IV (08:52)
[2018-12-29] MEDS: COLLAGENASE 5 GM (UD JAR) TOP (13:10)
[2018-12-29] MEDS: PIPER-TAZO 3.375 GM IV (PMX) 100 ML IVPB ×2 (13:11→17:41)
[2018-12-29 14:37] LABS: VANCOMYCIN,TROUGH 13.9 ug/ml (10.0-20.0)
[2018-12-29] MEDS: hydrALAzine 20 MG INJ IV (15:11)
[2018-12-29] MEDS: VANCOMYCIN 750 MG (PMX) 250 ML IVPB (15:57)
[2018-12-29] MEDS: ACCU-CHEK XX ×4 (17:00→21:00)
[2018-12-30] MEDS: PIPER-TAZO 3.375 GM IV (PMX) 100 ML IVPB ×4 (00:30→18:38)
[2018-12-30] MEDS: INSULIN ASPART [NOVOLOG] 3 ML PEN SC ×5 (00:30→17:00)
[2018-12-30] MEDS: ACCU-CHEK XX ×6 (00:31→21:00)
[2018-12-30] MEDS: HYDROmorphONE 0.2 MG/ML PCA IV ×5 (01:00→09:00)
[2018-12-30] MEDS: DEXTROSE 5% 1,000 ML IV ×2 (05:10→22:58)
[2018-12-30 05:14] LABS: ADD MAN DIFF? NO
[2018-12-30 05:15] LABS: BASOPHIL # 0.1 10^3/ul (0.0-0.1); BASOPHILS % 0.4 % (0.0-2.0); EOSINOPHILS # 0.3 10^3/ul (0.0-0.5); EOSINOPHILS % 2.5 % (0.0-7.0); HEMATOCRIT 28.3 % (37.0-47.0); HEMOGLOBIN 9.1 g/dl (12.0-16.0); LYMPHOCYTES # 1.4 10^3/ul (0.8-2.9); LYMPHOCYTES % 11.7 % (15.0-51.0); MEAN CORPUSCULAR HEMOGLOBIN 28.9 pg (29.0-33.0); MEAN CORPUSCULAR HGB CONC 32.2 g/dl (32.0-37.0); MEAN CORPUSCULAR VOLUME 89.8 fl (82.0-101.0); MEAN PLATELET VOLUME 10.3 fl (7.4-10.4); MONOCYTE # 0.6 10^3/ul (0.3-0.9); MONOCYTES % 5.4 % (0.0-11.0); NEUTROPHIL # 8.9 10^3/ul (1.6-7.5); NEUTROPHILS % 76.7 % (39.0-77.0); PLATELET COUNT 166 10^3/UL (140-415); RED BLOOD COUNT 3.15 10^6/ul (4.20-5.40); RED CELL DISTRIBUTION WIDTH 15.5 % (11.5-14.5)
[2018-12-30 05:15] LABS: WHITE BLOOD COUNT 11.6 10^3/ul (4.8-10.8)
[2018-12-30 06:08] LABS: ANION GAP 8 (5-13); BLOOD UREA NITROGEN 25 mg/dl (7-20); CALCIUM 8.2 mg/dl (8.4-10.2); CARBON DIOXIDE 17 mmol/L (21-31); CHLORIDE 116 mmol/L (97-110); CREATININE 1.15 mg/dl (0.44-1.00); Estimated GFR 48 mL/min (>60); GLUCOSE 91 mg/dl (70-220); MAGNESIUM 2.1 mg/dl (1.7-2.5); PHOSPHORUS 3.2 mg/dl (2.5-4.9); POTASSIUM 3.2 mmol/L (3.5-5.1); SODIUM 141 mmol/L (135-144)
[2018-12-30] MEDS: FAMOTIDINE 20 MG INJ IV (09:55)
[2018-12-30] MEDS: COLLAGENASE 5 GM (UD JAR) TOP (09:55)
[2018-12-30] MEDS: BALSAM PERU/CASTOR OIL 60 GM TUBE TOP ×2 (10:34→20:27)
[2018-12-30] MEDS: morphine 2 MG INJ IV ×2 (16:07→20:41)
[2018-12-30] MEDS: VANCOMYCIN 1 GM 250 ML IVPB (16:08)
[2018-12-30] MEDS: hydrALAzine 20 MG INJ IV (20:36)
[2018-12-31] MEDS ORDERED: ZOLPIDEM 5 MG TAB PO
[2018-12-31] MEDS: PIPER-TAZO 3.375 GM IV (PMX) 100 ML IVPB ×4 (00:28→18:00)
[2018-12-31] MEDS: ACCU-CHEK XX ×5 (01:00→15:40)
[2018-12-31] MEDS: LORAZEPAM 0.5 MG TAB PO (01:17)
[2018-12-31] MEDS: LORAZEPAM 2 MG INJ IV (01:21)
[2018-12-31] MEDS: hydrALAzine 20 MG INJ IV (01:27)
[2018-12-31] MEDS: INSULIN ASPART [NOVOLOG] 3 ML PEN SC ×4 (05:18→17:54)
[2018-12-31 05:37] LABS: ADD MAN DIFF? NO
[2018-12-31 05:44] LABS: BASOPHIL # 0.1 10^3/ul (0.0-0.1); BASOPHILS % 0.4 % (0.0-2.0); EOSINOPHILS # 0.2 10^3/ul (0.0-0.5); EOSINOPHILS % 1.6 % (0.0-7.0); HEMATOCRIT 29.8 % (37.0-47.0); HEMOGLOBIN 9.8 g/dl (12.0-16.0); LYMPHOCYTES # 1.4 10^3/ul (0.8-2.9); LYMPHOCYTES % 12.1 % (15.0-51.0); MEAN CORPUSCULAR HEMOGLOBIN 28.8 pg (29.0-33.0); MEAN CORPUSCULAR HGB CONC 32.9 g/dl (32.0-37.0); MEAN CORPUSCULAR VOLUME 87.6 fl (82.0-101.0); MEAN PLATELET VOLUME 10.1 fl (7.4-10.4); MONOCYTE # 0.8 10^3/ul (0.3-0.9); MONOCYTES % 6.5 % (0.0-11.0); NEUTROPHILS % 76.3 % (39.0-77.0); PLATELET COUNT 207 10^3/UL (140-415); RED CELL DISTRIBUTION WIDTH 15.5 % (11.5-14.5)
[2018-12-31 05:44] LABS: WHITE BLOOD COUNT 11.8 10^3/ul (4.8-10.8)
[2018-12-31] MEDS: DEXTROSE 5% 1,000 ML IV (05:55)
[2018-12-31 05:59] LABS: ALANINE AMINOTRANSFERASE 39 IU/L (13-69); ALBUMIN 2.4 g/dl (3.3-4.9); ALBUMIN/GLOBULIN RATIO 0.77; ALKALINE PHOSPHATASE 159 IU/L (42-121); ANION GAP 10 (5-13); ASPARTATE AMINO TRANSFERASE 21 IU/L (15-46); BILIRUBIN,INDIRECT 0.4 mg/dl (0-1.1); BILIRUBIN,TOTAL 0.4 mg/dl (0.2-1.3); BLOOD UREA NITROGEN 19 mg/dl (7-20); CALCIUM 8.2 mg/dl (8.4-10.2); CARBON DIOXIDE 16 mmol/L (21-31); CHLORIDE 114 mmol/L (97-110); CREATININE 1.02 mg/dl (0.44-1.00); Estimated GFR 56 mL/min (>60); GLUCOSE 76 mg/dl (70-220); SODIUM 140 mmol/L (135-144); TOTAL PROTEIN 5.5 g/dl (6.1-8.1)
[2018-12-31 06:09] LABS: POTASSIUM 2.5 mmol/L (3.5-5.1)
[2018-12-31] MEDS ORDERED: POTASSIUM CHLORIDE 50 ML IVPB (09:30)
[2018-12-31] MEDS: POTASSIUM CHLORIDE 40 MEQ in DEXTROSE 5% 1,000 ML IV (10:00)
[2018-12-31] MEDS: POTASSIUM CHLORIDE 100 ML IVPB ×4 (10:42→17:55)
[2018-12-31] MEDS: COLLAGENASE 5 GM (UD JAR) TOP (10:43)
[2018-12-31] MEDS: FAMOTIDINE 20 MG INJ IV (10:43)
[2018-12-31] MEDS: BALSAM PERU/CASTOR OIL 60 GM TUBE TOP ×2 (10:44→22:39)
[2018-12-31] MEDS: morphine 2 MG INJ IV (12:54)
[2018-12-31] MEDS: VANCOMYCIN 1 GM 250 ML IVPB (15:39)
[2018-12-31] MEDS: IOHEXOL 14.3 MG(I)/ML (ADULT) BTL PO (22:22)
[2019-01-01] MEDS: PIPER-TAZO 3.375 GM IV (PMX) 100 ML IVPB ×5 (01:05→23:57)
[2019-01-01] MEDS: hydrALAzine 20 MG INJ IV (01:17)
[2019-01-01] MEDS: ALPRAZOLAM 0.5 MG TAB PO (04:37)
[2019-01-01] MEDS: INSULIN ASPART [NOVOLOG] 3 ML PEN SC ×4 (05:55→18:00)
[2019-01-01] MEDS: POTASSIUM CHLORIDE 40 MEQ in DEXTROSE 5% 1,000 ML IV (05:58)
[2019-01-01 06:08] LABS: ADD MAN DIFF? NO
[2019-01-01 06:18] LABS: BASOPHIL # 0.1 10^3/ul (0.0-0.1); BASOPHILS % 0.6 % (0.0-2.0); EOSINOPHILS # 0.3 10^3/ul (0.0-0.5); EOSINOPHILS % 2.5 % (0.0-7.0); HEMATOCRIT 25.2 % (37.0-47.0); HEMOGLOBIN 8.1 g/dl (12.0-16.0); LYMPHOCYTES # 1.4 10^3/ul (0.8-2.9); LYMPHOCYTES % 14.1 % (15.0-51.0); MEAN CORPUSCULAR HEMOGLOBIN 28.8 pg (29.0-33.0); MEAN CORPUSCULAR HGB CONC 32.1 g/dl (32.0-37.0); MEAN CORPUSCULAR VOLUME 89.7 fl (82.0-101.0); MEAN PLATELET VOLUME 9.9 fl (7.4-10.4); MONOCYTE # 0.6 10^3/ul (0.3-0.9); MONOCYTES % 6.2 % (0.0-11.0); NEUTROPHIL # 7.7 10^3/ul (1.6-7.5); NEUTROPHILS % 74.8 % (39.0-77.0); PLATELET COUNT 235 10^3/UL (140-415); RED BLOOD COUNT 2.81 10^6/ul (4.20-5.40); RED CELL DISTRIBUTION WIDTH 15.7 % (11.5-14.5)
[2019-01-01 06:18] LABS: WHITE BLOOD COUNT 10.2 10^3/ul (4.8-10.8)
[2019-01-01 06:49] LABS: ANION GAP 7 (5-13); BLOOD UREA NITROGEN 13 mg/dl (7-20); CALCIUM 8.2 mg/dl (8.4-10.2); CARBON DIOXIDE 16 mmol/L (21-31); CHLORIDE 115 mmol/L (97-110); CREATININE 0.94 mg/dl (0.44-1.00); Estimated GFR > 60 mL/min (>60); GLUCOSE 88 mg/dl (70-220); SODIUM 138 mmol/L (135-144)
[2019-01-01 06:56] LABS: POTASSIUM 2.9 mmol/L (3.5-5.1)
[2019-01-01] MEDS: SOD CHLORIDE 0.9% 100 ML (07:42)
[2019-01-01] MEDS: IOHEXOL 14.3 MG(I)/ML (ADULT) BTL PO (07:42)
[2019-01-01] MEDS: IOHEXOL 300MG/ML 150 ML BTL ×2 (07:42)
[2019-01-01] MEDS ORDERED: POTASSIUM CHLORIDE 50 ML IVPB (08:00)
[2019-01-01] MEDS: COLLAGENASE 5 GM (UD JAR) TOP (08:28)
[2019-01-01] MEDS: FAMOTIDINE 20 MG INJ IV (08:29)
[2019-01-01] MEDS: BALSAM PERU/CASTOR OIL 60 GM TUBE TOP ×2 (09:51→20:26)
[2019-01-01] MEDS: POTASSIUM CHLORIDE 100 ML IVPB ×2 (09:51→12:18)
[2019-01-01 15:31] LABS: ANION GAP 8 (5-13); BLOOD UREA NITROGEN 12 mg/dl (7-20); CARBON DIOXIDE 15 mmol/L (21-31); CHLORIDE 113 mmol/L (97-110); CREATININE 0.94 mg/dl (0.44-1.00); Estimated GFR > 60 mL/min (>60); GLUCOSE 102 mg/dl (70-220); POTASSIUM 3.4 mmol/L (3.5-5.1); SODIUM 136 mmol/L (135-144)
[2019-01-01] MEDS: VANCOMYCIN 1 GM 250 ML IVPB (16:27)
[2019-01-01] MEDS: LORAZEPAM 2 MG INJ IV (21:06)
[2019-01-02] MEDS: POTASSIUM CHLORIDE 40 MEQ in DEXTROSE 5% 1,000 ML IV ×2 (03:46→23:37)
[2019-01-02] MEDS: LORAZEPAM 2 MG INJ IV ×4 (03:46→23:35)
[2019-01-02 05:35] LABS: ADD MAN DIFF? NO
[2019-01-02 05:39] LABS: BASOPHILS % 0.5 % (0.0-2.0); EOSINOPHILS # 0.3 10^3/ul (0.0-0.5); EOSINOPHILS % 3.5 % (0.0-7.0); HEMATOCRIT 30.3 % (37.0-47.0); LYMPHOCYTES # 1.3 10^3/ul (0.8-2.9); LYMPHOCYTES % 16.5 % (15.0-51.0); MEAN CORPUSCULAR VOLUME 87.8 fl (82.0-101.0); MEAN PLATELET VOLUME 9.8 fl (7.4-10.4); MONOCYTE # 0.6 10^3/ul (0.3-0.9); MONOCYTES % 7.8 % (0.0-11.0); NEUTROPHIL # 5.7 10^3/ul (1.6-7.5); NEUTROPHILS % 70.7 % (39.0-77.0); PLATELET COUNT 231 10^3/UL (140-415); RED BLOOD COUNT 3.45 10^6/ul (4.20-5.40); RED CELL DISTRIBUTION WIDTH 15.9 % (11.5-14.5)
[2019-01-02 05:39] LABS: WHITE BLOOD COUNT 8.1 10^3/ul (4.8-10.8)
[2019-01-02] MEDS: PIPER-TAZO 3.375 GM IV (PMX) 100 ML IVPB ×3 (05:56→18:28)
[2019-01-02] MEDS: INSULIN ASPART [NOVOLOG] 3 ML PEN SC ×5 (06:00→21:00)
[2019-01-02 06:33] LABS: ANION GAP 10 (5-13); BLOOD UREA NITROGEN 10 mg/dl (7-20); CALCIUM 8.2 mg/dl (8.4-10.2); CARBON DIOXIDE 15 mmol/L (21-31); CHLORIDE 112 mmol/L (97-110); CREATININE 0.97 mg/dl (0.44-1.00); Estimated GFR 59 mL/min (>60); GLUCOSE 99 mg/dl (70-220); POTASSIUM 3.1 mmol/L (3.5-5.1); SODIUM 137 mmol/L (135-144)
[2019-01-02 06:34] LABS: MAGNESIUM 1.6 mg/dl (1.7-2.5)
[2019-01-02 06:34] LABS: PHOSPHORUS 2.9 mg/dl (2.5-4.9)
[2019-01-02 07:16] LABS: ERYTHROCYTE SEDIMENTATION RATE 23 mm/Hr (0-30)
[2019-01-02] MEDS: HYDROCODONE/APAP (5/325) TAB PO ×2 (08:22→20:54)
[2019-01-02] MEDS: FAMOTIDINE 20 MG INJ IV (08:23)
[2019-01-02] MEDS: COLLAGENASE 5 GM (UD JAR) TOP (10:30)
[2019-01-02] MEDS: BALSAM PERU/CASTOR OIL 60 GM TUBE TOP ×2 (10:35→20:47)
[2019-01-02] MEDS: ALTEPLASE (CATHFLO) 2 MG INJ CATHETER (10:39)
[2019-01-02] MEDS: MAGNESIUM SULFATE 2 GM/50 ML 50 ML IVPB (12:12)
[2019-01-02] MEDS: hydrALAzine 20 MG INJ IV (14:04)
[2019-01-02] MEDS: POTASSIUM CHLORIDE (SR) 20 MEQ TAB PO (14:06)
[2019-01-02 14:43] LABS: RETICULOCYTE RBC 3.41
[2019-01-02 14:43] LABS: RETICULOCYTE COUNT # 0.117 X10^6 (0.020-0.110); RETICULOCYTE COUNT % 3.4 % (0.5-1.5)
[2019-01-02 15:00] LABS: IRON 14 ug/dl (35-150)
[2019-01-02 15:00] LABS: LACTATE DEHYDROGENASE 634 IU/L (313-618)
[2019-01-02 15:06] LABS: VANCOMYCIN,TROUGH 17.2 ug/ml (10.0-20.0)
[2019-01-02 15:09] LABS: % IRON SATURATION 7 % SAT (22-52); TOTAL IRON BINDING CAPACITY 198 ug/dl (241-421)
[2019-01-02 16:06] LABS: FOLATE 3.8 ng/ml (2.8-20.0)
[2019-01-02] MEDS: VANCOMYCIN 1 GM 250 ML IVPB (16:22)
[2019-01-03] MEDS: PIPER-TAZO 3.375 GM IV (PMX) 100 ML IVPB ×5 (00:18→23:43)
[2019-01-03 04:52] LABS: PROTEIN, TOTAL 5.2 g/dL (6.1-8.1)
[2019-01-03 06:21] LABS: ADD MAN DIFF? NO
[2019-01-03 06:25] LABS: WHITE BLOOD COUNT 8.4 10^3/ul (4.8-10.8)
[2019-01-03 06:25] LABS: BASOPHIL # 0.1 10^3/ul (0.0-0.1); BASOPHILS % 0.6 % (0.0-2.0); EOSINOPHILS # 0.4 10^3/ul (0.0-0.5); EOSINOPHILS % 4.6 % (0.0-7.0); HEMATOCRIT 29.2 % (37.0-47.0); HEMOGLOBIN 9.5 g/dl (12.0-16.0); LYMPHOCYTES # 1.5 10^3/ul (0.8-2.9); LYMPHOCYTES % 17.8 % (15.0-51.0); MEAN CORPUSCULAR HGB CONC 32.5 g/dl (32.0-37.0); MEAN PLATELET VOLUME 10.1 fl (7.4-10.4); MONOCYTE # 0.7 10^3/ul (0.3-0.9); MONOCYTES % 7.8 % (0.0-11.0); NEUTROPHIL # 5.7 10^3/ul (1.6-7.5); NEUTROPHILS % 68.4 % (39.0-77.0); PLATELET COUNT 251 10^3/UL (140-415); RED BLOOD COUNT 3.28 10^6/ul (4.20-5.40); RED CELL DISTRIBUTION WIDTH 15.9 % (11.5-14.5)
[2019-01-03 07:07] LABS: ANION GAP 10 (5-13); BLOOD UREA NITROGEN 8 mg/dl (7-20); CALCIUM 8.1 mg/dl (8.4-10.2); CARBON DIOXIDE 16 mmol/L (21-31); CHLORIDE 111 mmol/L (97-110); CREATININE 0.93 mg/dl (0.44-1.00); Estimated GFR > 60 mL/min (>60); GLUCOSE 79 mg/dl (70-220); PHOSPHORUS 2.8 mg/dl (2.5-4.9); POTASSIUM 3.4 mmol/L (3.5-5.1); SODIUM 137 mmol/L (135-144)
[2019-01-03] MEDS: INSULIN ASPART [NOVOLOG] 3 ML PEN SC ×4 (07:30→21:00)
[2019-01-03] MEDS: FAMOTIDINE 20 MG INJ IV (09:13)
[2019-01-03] MEDS: DOXYCYCLINE 100 MG TAB PO ×2 (09:13→21:27)
[2019-01-03] MEDS: POTASSIUM CHLORIDE (SR) 20 MEQ TAB PO (09:15)
[2019-01-03] MEDS: LORAZEPAM 2 MG INJ IV ×2 (09:15→23:43)
[2019-01-03] MEDS: BALSAM PERU/CASTOR OIL 60 GM TUBE TOP (09:16)
[2019-01-03] MEDS: COLLAGENASE 5 GM (UD JAR) TOP (09:16)
[2019-01-03] MEDS: SOD FERRIC GLUC COMPLX 125 MG in SOD CHLORIDE 0.9% 100 ML IVPB (12:33)
[2019-01-03 14:28] LABS: HAPTOGLOBIN 233 mg/dL (43-212)
[2019-01-03] MEDS: HYDROCODONE/APAP (5/325) TAB PO ×2 (15:09→21:27)
[2019-01-03 16:46] LABS: ALBUMIN 2.2 g/dL (3.8-4.8); ALPHA-1-GLOBULINS 0.5 g/dL (0.2-0.3); ALPHA-2-GLOBULINS 0.8 g/dL (0.5-0.9); BETA 2 GLOBULINS 0.4 g/dL (0.2-0.5); BETA GLOBULINS 0.3 g/dL (0.4-0.6)
[2019-01-04] MEDS: BALSAM PERU/CASTOR OIL 60 GM TUBE TOP ×3 (03:26→20:46)
[2019-01-04] MEDS: hydrALAzine 20 MG INJ IV (03:44)
[2019-01-04] MEDS: HYDROCODONE/APAP (5/325) TAB PO ×3 (05:24→18:34)
[2019-01-04] MEDS: PIPER-TAZO 3.375 GM IV (PMX) 100 ML IVPB ×4 (05:43→23:48)
[2019-01-04 06:14] LABS: ADD MAN DIFF? NO
[2019-01-04 06:24] LABS: WHITE BLOOD COUNT 7.3 10^3/ul (4.8-10.8)
[2019-01-04 06:24] LABS: BASOPHIL # 0.1 10^3/ul (0.0-0.1); BASOPHILS % 0.8 % (0.0-2.0); EOSINOPHILS # 0.3 10^3/ul (0.0-0.5); EOSINOPHILS % 4.1 % (0.0-7.0); HEMATOCRIT 28.9 % (37.0-47.0); HEMOGLOBIN 9.5 g/dl (12.0-16.0); LYMPHOCYTES # 1.6 10^3/ul (0.8-2.9); LYMPHOCYTES % 21.8 % (15.0-51.0); MEAN CORPUSCULAR HEMOGLOBIN 29.3 pg (29.0-33.0); MEAN CORPUSCULAR HGB CONC 32.9 g/dl (32.0-37.0); MEAN CORPUSCULAR VOLUME 89.2 fl (82.0-101.0); MEAN PLATELET VOLUME 10.3 fl (7.4-10.4); MONOCYTE # 0.6 10^3/ul (0.3-0.9); MONOCYTES % 8.5 % (0.0-11.0); NEUTROPHIL # 4.7 10^3/ul (1.6-7.5); NEUTROPHILS % 64.3 % (39.0-77.0); PLATELET COUNT 258 10^3/UL (140-415); RED BLOOD COUNT 3.24 10^6/ul (4.20-5.40); RED CELL DISTRIBUTION WIDTH 15.8 % (11.5-14.5)
[2019-01-04 06:41] LABS: ANION GAP 7 (5-13); BLOOD UREA NITROGEN 10 mg/dl (7-20); CALCIUM 8.5 mg/dl (8.4-10.2); CARBON DIOXIDE 17 mmol/L (21-31); CHLORIDE 112 mmol/L (97-110); CREATININE 0.97 mg/dl (0.44-1.00); Estimated GFR 59 mL/min (>60); GLUCOSE 77 mg/dl (70-220); MAGNESIUM 1.8 mg/dl (1.7-2.5); PHOSPHORUS 2.6 mg/dl (2.5-4.9); POTASSIUM 3.5 mmol/L (3.5-5.1); SODIUM 136 mmol/L (135-144)
[2019-01-04 06:52] LABS: PREALBUMIN 14.5 mg/dl (17.6-36.0)
[2019-01-04] MEDS: INSULIN ASPART [NOVOLOG] 3 ML PEN SC ×4 (07:30→21:00)
[2019-01-04] MEDS: COLLAGENASE 5 GM (UD JAR) TOP (08:09)
[2019-01-04] MEDS: DOXYCYCLINE 100 MG TAB PO ×2 (08:09→20:44)
[2019-01-04] MEDS: FAMOTIDINE 20 MG INJ IV (08:09)
[2019-01-04] MEDS: LORAZEPAM 2 MG INJ IV ×3 (09:53→22:35)
[2019-01-04] MEDS: SOD FERRIC GLUC COMPLX 125 MG in SOD CHLORIDE 0.9% 100 ML IVPB (14:05)
[2019-01-04] MEDS: NYSTATIN 30 GM POWDER BTL TOP (20:46)
[2019-01-05] MEDS: HYDROCODONE/APAP (5/325) TAB PO ×3 (01:15→21:12)
[2019-01-05] MEDS: PIPER-TAZO 3.375 GM IV (PMX) 100 ML IVPB ×4 (05:20→23:52)
[2019-01-05] MEDS: LORAZEPAM 2 MG INJ IV ×3 (05:28→21:16)
[2019-01-05] MEDS: INSULIN ASPART [NOVOLOG] 3 ML PEN SC ×4 (07:30→21:00)
[2019-01-05] MEDS: FAMOTIDINE 20 MG INJ IV (08:07)
[2019-01-05] MEDS: COLLAGENASE 5 GM (UD JAR) TOP (08:07)
[2019-01-05] MEDS: DOXYCYCLINE 100 MG TAB PO ×2 (08:07→21:12)
[2019-01-05] MEDS: NYSTATIN 30 GM POWDER BTL TOP ×2 (08:08→21:22)
[2019-01-05] MEDS: BALSAM PERU/CASTOR OIL 60 GM TUBE TOP ×2 (08:10→21:22)
[2019-01-05] MEDS: DOCUSATE SODIUM 100 MG CAP PO ×2 (08:11→21:12)
[2019-01-05] MEDS ORDERED: DAKINS 0.0125%(1/40) 473 ML SOLUTION TP (09:00)
[2019-01-05] MEDS: SOD FERRIC GLUC COMPLX 125 MG in SOD CHLORIDE 0.9% 100 ML IVPB (13:58)
[2019-01-06] MEDS: HYDROCODONE/APAP (5/325) TAB PO ×3 (03:12→20:14)
[2019-01-06] MEDS: LORAZEPAM 2 MG INJ IV ×4 (03:12→20:15)
[2019-01-06] MEDS: hydrALAzine 20 MG INJ IV (03:33)
[2019-01-06] MEDS: PIPER-TAZO 3.375 GM IV (PMX) 100 ML IVPB ×4 (05:35→23:02)
[2019-01-06] MEDS: INSULIN ASPART [NOVOLOG] 3 ML PEN SC ×4 (07:30→20:27)
[2019-01-06 08:26] LABS: ERYTHROCYTE SEDIMENTATION RATE 32 mm/Hr (0-30)
[2019-01-06] MEDS: DOXYCYCLINE 100 MG TAB PO ×2 (09:00→20:14)
[2019-01-06] MEDS: DOCUSATE SODIUM 100 MG CAP PO ×2 (09:00→20:14)
[2019-01-06] MEDS: FAMOTIDINE 20 MG INJ IV (09:00)
[2019-01-06] MEDS: COLLAGENASE 5 GM (UD JAR) TOP (09:01)
[2019-01-06] MEDS: NYSTATIN 30 GM POWDER BTL TOP ×2 (09:02→20:16)
[2019-01-06] MEDS: BALSAM PERU/CASTOR OIL 60 GM TUBE TOP ×2 (09:02→20:16)
[2019-01-06] MEDS: DAKINS 0.0125%(1/40) 473 ML SOLUTION TP (09:03)
[2019-01-06 11:49] LABS: ANION GAP 9 (5-13); BLOOD UREA NITROGEN 17 mg/dl (7-20); CALCIUM 8.7 mg/dl (8.4-10.2); CARBON DIOXIDE 20 mmol/L (21-31); CHLORIDE 107 mmol/L (97-110); CREATININE 0.99 mg/dl (0.44-1.00); Estimated GFR 58 mL/min (>60); GLUCOSE 76 mg/dl (70-220); POTASSIUM 3.6 mmol/L (3.5-5.1); SODIUM 136 mmol/L (135-144)
[2019-01-06] MEDS: SOD FERRIC GLUC COMPLX 125 MG in SOD CHLORIDE 0.9% 100 ML IVPB (14:57)
[2019-01-07] MEDS: HYDROCODONE/APAP (5/325) TAB PO ×4 (01:57→17:30)
[2019-01-07] MEDS: LORAZEPAM 2 MG INJ IV ×3 (02:54→21:09)
[2019-01-07 05:14] LABS: ADD MAN DIFF? NO
[2019-01-07 05:24] LABS: WHITE BLOOD COUNT 4.4 10^3/ul (4.8-10.8)
[2019-01-07 05:24] LABS: BASOPHIL # 0.1 10^3/ul (0.0-0.1); BASOPHILS % 1.4 % (0.0-2.0); EOSINOPHILS # 0.2 10^3/ul (0.0-0.5); EOSINOPHILS % 3.4 % (0.0-7.0); HEMOGLOBIN 8.3 g/dl (12.0-16.0); LYMPHOCYTES # 1.5 10^3/ul (0.8-2.9); LYMPHOCYTES % 33.6 % (15.0-51.0); MEAN CORPUSCULAR HEMOGLOBIN 29.1 pg (29.0-33.0); MEAN CORPUSCULAR HGB CONC 33.2 g/dl (32.0-37.0); MEAN CORPUSCULAR VOLUME 87.7 fl (82.0-101.0); MONOCYTE # 0.5 10^3/ul (0.3-0.9); MONOCYTES % 10.7 % (0.0-11.0); NEUTROPHIL # 2.2 10^3/ul (1.6-7.5); NEUTROPHILS % 50.7 % (39.0-77.0); PLATELET COUNT 195 10^3/UL (140-415); RED BLOOD COUNT 2.85 10^6/ul (4.20-5.40); RED CELL DISTRIBUTION WIDTH 15.8 % (11.5-14.5)
[2019-01-07] MEDS: PIPER-TAZO 3.375 GM IV (PMX) 100 ML IVPB ×3 (05:32→17:32)
[2019-01-07] MEDS: INSULIN ASPART [NOVOLOG] 3 ML PEN SC ×4 (08:00→21:08)
[2019-01-07] MEDS: FAMOTIDINE 20 MG INJ IV (08:18)
[2019-01-07] MEDS: DOXYCYCLINE 100 MG TAB PO ×2 (08:18→21:10)
[2019-01-07] MEDS: DOCUSATE SODIUM 100 MG CAP PO ×2 (08:18→21:10)
[2019-01-07] MEDS: COLLAGENASE 5 GM (UD JAR) TOP (08:19)
[2019-01-07] MEDS: BALSAM PERU/CASTOR OIL 60 GM TUBE TOP ×2 (08:20→21:17)
[2019-01-07] MEDS: NYSTATIN 30 GM POWDER BTL TOP ×2 (08:20→21:17)
[2019-01-07] MEDS: CITALOPRAM 20 MG TAB PO (08:23)
[2019-01-07] MEDS: DAKINS 0.0125%(1/40) 473 ML SOLUTION TP (09:00)
[2019-01-07] MEDS: SOD FERRIC GLUC COMPLX 125 MG in SOD CHLORIDE 0.9% 100 ML IVPB (12:56)
[2019-01-08] MEDS: PIPER-TAZO 3.375 GM IV (PMX) 100 ML IVPB ×4 (00:10→17:44)
[2019-01-08] MEDS: HYDROCODONE/APAP (5/325) TAB PO ×3 (00:20→23:16)
[2019-01-08] MEDS: ACCU-CHEK XX (02:02)
[2019-01-08] MEDS: LORAZEPAM 2 MG INJ IV ×3 (05:37→20:25)
[2019-01-08] MEDS: INSULIN ASPART [NOVOLOG] 3 ML PEN SC ×4 (08:00→20:37)
[2019-01-08] MEDS: COLLAGENASE 5 GM (UD JAR) TOP (08:12)
[2019-01-08] MEDS: NYSTATIN 30 GM POWDER BTL TOP ×2 (08:12→20:23)
[2019-01-08] MEDS: BALSAM PERU/CASTOR OIL 60 GM TUBE TOP ×2 (08:13→20:23)
[2019-01-08] MEDS: DOCUSATE SODIUM 100 MG CAP PO ×2 (08:15→20:22)
[2019-01-08] MEDS: DOXYCYCLINE 100 MG TAB PO ×2 (08:15→20:22)
[2019-01-08] MEDS: CITALOPRAM 20 MG TAB PO (08:16)
[2019-01-08] MEDS: FAMOTIDINE 20 MG INJ IV (08:16)
[2019-01-08] MEDS: DAKINS 0.0125%(1/40) 473 ML SOLUTION TP (09:54)
[2019-01-08] MEDS: SOD CHLORIDE 0.9% 0 ML (10:47)
[2019-01-08] MEDS: SOD CHLORIDE 0.9% 500 ML ×2 (10:49→10:51)
[2019-01-08] MEDS: IOHEXOL 300MG/ML 30 ML BTL ×4 (10:49→10:51)
[2019-01-09] MEDS: PIPER-TAZO 3.375 GM IV (PMX) 100 ML IVPB ×4 (00:08→17:33)
[2019-01-09] MEDS: ACCU-CHEK XX (02:00)
[2019-01-09] MEDS: LORAZEPAM 2 MG INJ IV ×4 (02:39→22:13)
[2019-01-09] MEDS: HYDROCODONE/APAP (5/325) TAB PO ×4 (06:21→22:20)
[2019-01-09] MEDS: INSULIN ASPART [NOVOLOG] 3 ML PEN SC ×4 (09:30→21:00)
[2019-01-09] MEDS: FAMOTIDINE 20 MG INJ IV (09:31)
[2019-01-09] MEDS: DOCUSATE SODIUM 100 MG CAP PO ×2 (09:32→22:03)
[2019-01-09] MEDS: DOXYCYCLINE 100 MG TAB PO ×2 (09:32→22:03)
[2019-01-09] MEDS: CITALOPRAM 20 MG TAB PO (09:32)
[2019-01-09] MEDS: BALSAM PERU/CASTOR OIL 60 GM TUBE TOP ×2 (09:34→22:04)
[2019-01-09] MEDS: NYSTATIN 30 GM POWDER BTL TOP ×2 (09:34→22:04)
[2019-01-09] MEDS: COLLAGENASE 5 GM (UD JAR) TOP (09:34)
[2019-01-09] MEDS: DAKINS 0.0125%(1/40) 473 ML SOLUTION TP (09:35)
[2019-01-09 11:07] LABS: IRON 28 ug/dl (35-150)
[2019-01-09 11:16] LABS: % IRON SATURATION 16 % SAT (22-52); TOTAL IRON BINDING CAPACITY 179 ug/dl (241-421)
[2019-01-09] MEDS: BACLOFEN 10 MG TAB PO (22:04)
[2019-01-09] MEDS: DIAZEPAM 2 MG TAB PO (22:04)
[2019-01-10] MEDS: PIPER-TAZO 3.375 GM IV (PMX) 100 ML IVPB ×5 (00:40→23:08)
[2019-01-10] MEDS: ACCU-CHEK XX (02:00)
[2019-01-10] MEDS: HYDROCODONE/APAP (5/325) TAB PO ×3 (05:21→16:19)
[2019-01-10] MEDS: LORAZEPAM 2 MG INJ IV (05:21)
[2019-01-10] MEDS: DOXYCYCLINE 100 MG TAB PO ×2 (08:44→20:40)
[2019-01-10] MEDS: FAMOTIDINE 20 MG TAB PO (08:44)
[2019-01-10] MEDS: BACLOFEN 10 MG TAB PO ×3 (08:46→20:40)
[2019-01-10] MEDS: CITALOPRAM 20 MG TAB PO (08:46)
[2019-01-10] MEDS: DOCUSATE SODIUM 100 MG CAP PO ×2 (08:46→20:40)
[2019-01-10] MEDS: DIAZEPAM 2 MG TAB PO ×3 (08:46→20:40)
[2019-01-10] MEDS: NYSTATIN 30 GM POWDER BTL TOP ×2 (08:47→23:08)
[2019-01-10] MEDS: COLLAGENASE 5 GM (UD JAR) TOP (08:48)
[2019-01-10] MEDS: DAKINS 0.0125%(1/40) 473 ML SOLUTION TP (08:48)
[2019-01-10] MEDS: INSULIN ASPART [NOVOLOG] 3 ML PEN SC ×6 (08:54→20:42)
[2019-01-10] MEDS: BALSAM PERU/CASTOR OIL 60 GM TUBE TOP ×2 (08:55→23:08)
[2019-01-10] MEDS: LORAZEPAM 0.5 MG TAB PO (17:50)
[2019-01-11] MEDS: HYDROCODONE/APAP (5/325) TAB PO ×2 (01:03→12:54)
[2019-01-11] MEDS: ACCU-CHEK XX (02:00)
[2019-01-11] MEDS: LORAZEPAM 0.5 MG TAB PO ×3 (02:48→22:24)
[2019-01-11] MEDS: PIPER-TAZO 3.375 GM IV (PMX) 100 ML IVPB ×4 (05:43→23:45)
[2019-01-11] MEDS: INSULIN ASPART [NOVOLOG] 3 ML PEN SC ×4 (08:00→21:00)
[2019-01-11] MEDS: DOXYCYCLINE 100 MG TAB PO ×2 (08:22→21:22)
[2019-01-11] MEDS: BACLOFEN 10 MG TAB PO ×3 (08:22→21:22)
[2019-01-11] MEDS: CITALOPRAM 20 MG TAB PO (08:23)
[2019-01-11] MEDS: DIAZEPAM 2 MG TAB PO ×3 (08:23→21:22)
[2019-01-11] MEDS: DOCUSATE SODIUM 100 MG CAP PO ×2 (08:23→21:22)
[2019-01-11] MEDS: FAMOTIDINE 20 MG TAB PO (08:23)
[2019-01-11] MEDS: BALSAM PERU/CASTOR OIL 60 GM TUBE TOP ×2 (09:45→21:26)
[2019-01-11] MEDS: NYSTATIN 30 GM POWDER BTL TOP ×2 (09:45→21:26)
[2019-01-11] MEDS: COLLAGENASE 5 GM (UD JAR) TOP (09:45)
[2019-01-11] MEDS: DAKINS 0.0125%(1/40) 473 ML SOLUTION TP (09:46)
[2019-01-11] MEDS: hydrALAzine 20 MG INJ IV (22:17)
[2019-01-12] MEDS: ACCU-CHEK XX (02:00)
[2019-01-12] MEDS: HYDROCODONE/APAP (5/325) TAB PO ×3 (02:53→17:26)
[2019-01-12] MEDS: PIPER-TAZO 3.375 GM IV (PMX) 100 ML IVPB ×4 (06:06→23:41)
[2019-01-12] MEDS: LORAZEPAM 0.5 MG TAB PO ×3 (06:16→23:41)
[2019-01-12] MEDS: INSULIN ASPART [NOVOLOG] 3 ML PEN SC ×4 (08:00→21:00)
[2019-01-12] MEDS: DIAZEPAM 2 MG TAB PO ×3 (08:27→22:07)
[2019-01-12] MEDS: DOXYCYCLINE 100 MG TAB PO ×2 (08:27→22:08)
[2019-01-12] MEDS: CITALOPRAM 20 MG TAB PO (08:27)
[2019-01-12] MEDS: DOCUSATE SODIUM 100 MG CAP PO ×2 (08:27→22:07)
[2019-01-12] MEDS: BACLOFEN 10 MG TAB PO ×3 (08:27→22:07)
[2019-01-12] MEDS: FAMOTIDINE 20 MG TAB PO (08:27)
[2019-01-12] MEDS: BALSAM PERU/CASTOR OIL 60 GM TUBE TOP ×2 (08:28→22:08)
[2019-01-12] MEDS: COLLAGENASE 5 GM (UD JAR) TOP (08:28)
[2019-01-12] MEDS: NYSTATIN 30 GM POWDER BTL TOP ×2 (08:28→22:08)
[2019-01-12] MEDS: DAKINS 0.0125%(1/40) 473 ML SOLUTION TP (08:29)
[2019-01-12 09:20] LABS: ADD MAN DIFF? NO
[2019-01-12 09:22] LABS: BASOPHILS % 0.9 % (0.0-2.0); EOSINOPHILS # 0.1 10^3/ul (0.0-0.5); EOSINOPHILS % 3.1 % (0.0-7.0); HEMATOCRIT 28.9 % (37.0-47.0); HEMOGLOBIN 9.3 g/dl (12.0-16.0); LYMPHOCYTES # 1.5 10^3/ul (0.8-2.9); LYMPHOCYTES % 45.9 % (15.0-51.0); MEAN CORPUSCULAR HEMOGLOBIN 29.3 pg (29.0-33.0); MEAN CORPUSCULAR HGB CONC 32.2 g/dl (32.0-37.0); MEAN CORPUSCULAR VOLUME 91.2 fl (82.0-101.0); MEAN PLATELET VOLUME 10.1 fl (7.4-10.4); MONOCYTE # 0.3 10^3/ul (0.3-0.9); MONOCYTES % 9.7 % (0.0-11.0); NEUTROPHIL # 1.3 10^3/ul (1.6-7.5); NEUTROPHILS % 39.8 % (39.0-77.0); PLATELET COUNT 182 10^3/UL (140-415); RED BLOOD COUNT 3.17 10^6/ul (4.20-5.40); RED CELL DISTRIBUTION WIDTH 15.8 % (11.5-14.5)
[2019-01-12 09:22] LABS: WHITE BLOOD COUNT 3.2 10^3/ul (4.8-10.8)
[2019-01-12 09:47] LABS: IRON 57 ug/dl (35-150)
[2019-01-12 09:57] LABS: % IRON SATURATION 30 % SAT (22-52); TOTAL IRON BINDING CAPACITY 188 ug/dl (241-421)
[2019-01-13] MEDS: ACCU-CHEK XX (02:00)
[2019-01-13] MEDS ORDERED: DIPHENHYDRAMINE 25 MG CAP PO (02:30)
[2019-01-13] MEDS: PIPER-TAZO 3.375 GM IV (PMX) 100 ML IVPB ×3 (05:12→17:43)
[2019-01-13] MEDS: hydrALAzine 20 MG INJ IV (05:12)
[2019-01-13] MEDS: INSULIN ASPART [NOVOLOG] 3 ML PEN SC ×4 (08:00→21:00)
[2019-01-13] MEDS: FAMOTIDINE 20 MG TAB PO (09:09)
[2019-01-13] MEDS: CITALOPRAM 20 MG TAB PO (09:09)
[2019-01-13] MEDS: DOXYCYCLINE 100 MG TAB PO ×2 (09:09→21:17)
[2019-01-13] MEDS: BACLOFEN 10 MG TAB PO ×3 (09:09→21:17)
[2019-01-13] MEDS: DIAZEPAM 2 MG TAB PO ×3 (09:09→21:17)
[2019-01-13] MEDS: DOCUSATE SODIUM 100 MG CAP PO ×2 (09:09→21:00)
[2019-01-13] MEDS: COLLAGENASE 5 GM (UD JAR) TOP (09:13)
[2019-01-13] MEDS: NYSTATIN 30 GM POWDER BTL TOP ×2 (09:13→21:24)
[2019-01-13] MEDS: BALSAM PERU/CASTOR OIL 60 GM TUBE TOP ×2 (09:13→21:25)
[2019-01-13] MEDS: DAKINS 0.0125%(1/40) 473 ML SOLUTION TP (09:14)
[2019-01-13 09:23] LABS: WHITE BLOOD COUNT 4.3 10^3/ul (4.8-10.8)
[2019-01-13 09:23] LABS: ADD MAN DIFF? NO; BASOPHIL # 0.1 10^3/ul (0.0-0.1); BASOPHILS % 1.2 % (0.0-2.0); EOSINOPHILS # 0.1 10^3/ul (0.0-0.5); HEMATOCRIT 32.1 % (37.0-47.0); HEMOGLOBIN 10.5 g/dl (12.0-16.0); LYMPHOCYTES # 1.4 10^3/ul (0.8-2.9); LYMPHOCYTES % 33.6 % (15.0-51.0); MEAN CORPUSCULAR HEMOGLOBIN 29.2 pg (29.0-33.0); MEAN CORPUSCULAR HGB CONC 32.7 g/dl (32.0-37.0); MEAN CORPUSCULAR VOLUME 89.2 fl (82.0-101.0); MONOCYTE # 0.4 10^3/ul (0.3-0.9); MONOCYTES % 8.4 % (0.0-11.0); NEUTROPHIL # 2.3 10^3/ul (1.6-7.5); NEUTROPHILS % 53.3 % (39.0-77.0); PLATELET COUNT 219 10^3/UL (140-415); RED CELL DISTRIBUTION WIDTH 15.9 % (11.5-14.5)
[2019-01-13 10:12] LABS: ALANINE AMINOTRANSFERASE 12 IU/L (13-69); ALBUMIN 3.1 g/dl (3.3-4.9); ALBUMIN/GLOBULIN RATIO 0.86; ALKALINE PHOSPHATASE 150 IU/L (42-121); ANION GAP 10 (5-13); ASPARTATE AMINO TRANSFERASE 20 IU/L (15-46); BILIRUBIN,INDIRECT 0.2 mg/dl (0-1.1); BILIRUBIN,TOTAL 0.2 mg/dl (0.2-1.3); BLOOD UREA NITROGEN 26 mg/dl (7-20); CALCIUM 9.3 mg/dl (8.4-10.2); CARBON DIOXIDE 21 mmol/L (21-31); CHLORIDE 109 mmol/L (97-110); CREATININE 1.35 mg/dl (0.44-1.00); Estimated GFR 40 mL/min (>60); GLUCOSE 129 mg/dl (70-220); POTASSIUM 3.1 mmol/L (3.5-5.1); SODIUM 140 mmol/L (135-144)
[2019-01-13 10:15] LABS: TOTAL PROTEIN 6.7 g/dl (6.1-8.1)
[2019-01-13] MEDS: LORAZEPAM 0.5 MG TAB PO ×2 (10:27→18:54)
[2019-01-13] MEDS: HYDROCODONE/APAP (5/325) TAB PO ×2 (11:20→17:43)
[2019-01-13] MEDS: POTASSIUM CHLORIDE (SR) 20 MEQ TAB PO (13:53)
[2019-01-14] MEDS: PIPER-TAZO 3.375 GM IV (PMX) 100 ML IVPB ×5 (01:48→23:39)
[2019-01-14] MEDS: ACCU-CHEK XX (02:00)
[2019-01-14] MEDS: morphine 2 MG INJ IV (04:51)
[2019-01-14] MEDS: HYDROCODONE/APAP (5/325) TAB PO ×3 (05:00→20:27)
[2019-01-14] MEDS: INSULIN ASPART [NOVOLOG] 3 ML PEN SC ×4 (08:00→21:00)
[2019-01-14] MEDS: COLLAGENASE 5 GM (UD JAR) TOP (08:37)
[2019-01-14] MEDS: DOXYCYCLINE 100 MG TAB PO ×2 (08:38→20:27)
[2019-01-14] MEDS: CITALOPRAM 20 MG TAB PO (08:38)
[2019-01-14] MEDS: BACLOFEN 10 MG TAB PO ×3 (08:42→20:26)
[2019-01-14] MEDS: FAMOTIDINE 20 MG TAB PO (08:44)
[2019-01-14] MEDS: BALSAM PERU/CASTOR OIL 60 GM TUBE TOP ×2 (08:45→20:28)
[2019-01-14] MEDS: NYSTATIN 30 GM POWDER BTL TOP ×2 (08:45→20:29)
[2019-01-14] MEDS: DAKINS 0.0125%(1/40) 473 ML SOLUTION TP (08:45)
[2019-01-14] MEDS: DOCUSATE SODIUM 100 MG CAP PO ×2 (09:00→20:28)
[2019-01-14] MEDS: DIAZEPAM 2 MG TAB PO ×3 (10:14→20:26)
[2019-01-14] MEDS ORDERED: LORAZEPAM 1 MG TAB (14:45)
[2019-01-14] MEDS: LORAZEPAM 0.5 MG TAB PO (18:23)
[2019-01-14] MEDS: SUCRALFATE 1 GM TAB PO (21:34)
[2019-01-15] MEDS: ACCU-CHEK XX (02:00)
[2019-01-15] MEDS: HYDROCODONE/APAP (5/325) TAB PO ×2 (02:30→09:08)
[2019-01-15] MEDS: PIPER-TAZO 3.375 GM IV (PMX) 100 ML IVPB ×3 (05:43→18:44)
[2019-01-15] MEDS: LORAZEPAM 0.5 MG TAB PO ×3 (05:46→23:04)
[2019-01-15] MEDS: SUCRALFATE 1 GM TAB PO ×2 (06:00→12:41)
[2019-01-15] MEDS: INSULIN ASPART [NOVOLOG] 3 ML PEN SC ×4 (08:00→20:40)
[2019-01-15] MEDS: DOCUSATE SODIUM 100 MG CAP PO ×2 (09:00→20:41)
[2019-01-15] MEDS: CITALOPRAM 20 MG TAB PO (09:04)
[2019-01-15] MEDS: COLLAGENASE 5 GM (UD JAR) TOP (09:04)
[2019-01-15] MEDS: DIAZEPAM 2 MG TAB PO ×3 (09:05→20:41)
[2019-01-15] MEDS: DOXYCYCLINE 100 MG TAB PO ×2 (09:05→20:42)
[2019-01-15] MEDS: FAMOTIDINE 20 MG TAB PO (09:07)
[2019-01-15] MEDS: BACLOFEN 10 MG TAB PO ×3 (09:07→20:41)
[2019-01-15] MEDS: BALSAM PERU/CASTOR OIL 60 GM TUBE TOP ×2 (09:12→20:37)
[2019-01-15] MEDS: NYSTATIN 30 GM POWDER BTL TOP ×2 (09:12→20:37)
[2019-01-15] MEDS: DAKINS 0.0125%(1/40) 473 ML SOLUTION TP (09:12)
[2019-01-15] MEDS: OXYCODONE/ACETAMINOPHEN (5/325) TAB PO ×2 (12:29→18:44)
[2019-01-16] MEDS: PIPER-TAZO 3.375 GM IV (PMX) 100 ML IVPB ×5 (00:09→23:22)
[2019-01-16] MEDS: ACCU-CHEK XX (02:00)
[2019-01-16] MEDS: OXYCODONE/ACETAMINOPHEN (5/325) TAB PO ×4 (05:30→23:21)
[2019-01-16] MEDS: INSULIN ASPART [NOVOLOG] 3 ML PEN SC ×4 (08:00→20:22)
[2019-01-16] MEDS: BACLOFEN 10 MG TAB PO ×3 (08:22→20:22)
[2019-01-16] MEDS: DOXYCYCLINE 100 MG TAB PO ×2 (08:22→20:21)
[2019-01-16] MEDS: DOCUSATE SODIUM 100 MG CAP PO ×2 (08:23→20:21)
[2019-01-16] MEDS: CITALOPRAM 20 MG TAB PO (08:23)
[2019-01-16] MEDS: FAMOTIDINE 20 MG TAB PO (08:23)
[2019-01-16] MEDS: COLLAGENASE 5 GM (UD JAR) TOP (08:24)
[2019-01-16] MEDS: DIAZEPAM 2 MG TAB PO ×3 (08:26→20:22)
[2019-01-16] MEDS: DAKINS 0.0125%(1/40) 473 ML SOLUTION TP (08:27)
[2019-01-16] MEDS: NYSTATIN 30 GM POWDER BTL TOP ×2 (08:27→20:24)
[2019-01-16] MEDS: BALSAM PERU/CASTOR OIL 60 GM TUBE TOP ×2 (08:28→20:25)
[2019-01-16] MEDS: LORAZEPAM 0.5 MG TAB PO ×2 (10:26→19:29)
[2019-01-17] MEDS: LORAZEPAM 0.5 MG TAB PO ×3 (05:38→21:45)
[2019-01-17] MEDS: PIPER-TAZO 3.375 GM IV (PMX) 100 ML IVPB ×3 (05:38→18:11)
[2019-01-17] MEDS: INSULIN ASPART [NOVOLOG] 3 ML PEN SC ×4 (08:00→20:28)
[2019-01-17] MEDS: FAMOTIDINE 20 MG TAB PO (08:09)
[2019-01-17] MEDS: DOXYCYCLINE 100 MG TAB PO ×2 (08:09→20:28)
[2019-01-17] MEDS: BACLOFEN 10 MG TAB PO ×3 (08:09→20:28)
[2019-01-17] MEDS: DOCUSATE SODIUM 100 MG CAP PO (08:10)
[2019-01-17] MEDS: DIAZEPAM 2 MG TAB PO ×3 (08:10→20:28)
[2019-01-17] MEDS: CITALOPRAM 20 MG TAB PO (08:10)
[2019-01-17] MEDS: BALSAM PERU/CASTOR OIL 60 GM TUBE TOP ×2 (08:11→20:31)
[2019-01-17] MEDS: NYSTATIN 30 GM POWDER BTL TOP ×2 (08:11→20:31)
[2019-01-17] MEDS: COLLAGENASE 5 GM (UD JAR) TOP (08:11)
[2019-01-17] MEDS: OXYCODONE/ACETAMINOPHEN (5/325) TAB PO ×3 (08:11→20:29)
[2019-01-17] MEDS: DAKINS 0.0125%(1/40) 473 ML SOLUTION TP (08:12)
[2019-01-17 10:30] LABS: ADD MAN DIFF? NO
[2019-01-17 10:43] LABS: BASOPHILS % 0.2 % (0.0-2.0); EOSINOPHILS # 0.2 10^3/ul (0.0-0.5); HEMATOCRIT 29.9 % (37.0-47.0); HEMOGLOBIN 9.6 g/dl (12.0-16.0); LYMPHOCYTES # 1.7 10^3/ul (0.8-2.9); LYMPHOCYTES % 35.6 % (15.0-51.0); MEAN CORPUSCULAR HEMOGLOBIN 29.2 pg (29.0-33.0); MEAN CORPUSCULAR HGB CONC 32.1 g/dl (32.0-37.0); MEAN CORPUSCULAR VOLUME 90.9 fl (82.0-101.0); MEAN PLATELET VOLUME 10.7 fl (7.4-10.4); MONOCYTE # 0.4 10^3/ul (0.3-0.9); NEUTROPHIL # 2.4 10^3/ul (1.6-7.5); PLATELET COUNT 174 10^3/UL (140-415); RED BLOOD COUNT 3.29 10^6/ul (4.20-5.40); RED CELL DISTRIBUTION WIDTH 16.1 % (11.5-14.5)
[2019-01-17 10:43] LABS: WHITE BLOOD COUNT 4.6 10^3/ul (4.8-10.8)
[2019-01-17 11:04] LABS: ANION GAP 8 (5-13); BLOOD UREA NITROGEN 32 mg/dl (7-20); CALCIUM 9.2 mg/dl (8.4-10.2); CARBON DIOXIDE 20 mmol/L (21-31); CHLORIDE 104 mmol/L (97-110); CREATININE 1.16 mg/dl (0.44-1.00); Estimated GFR 48 mL/min (>60); GLUCOSE 144 mg/dl (70-220); POTASSIUM 3.9 mmol/L (3.5-5.1); SODIUM 132 mmol/L (135-144)
[2019-01-17 11:43] LABS: ERYTHROCYTE SEDIMENTATION RATE 42 mm/Hr (0-30)
[2019-01-18] MEDS: PIPER-TAZO 3.375 GM IV (PMX) 100 ML IVPB ×5 (00:18→23:07)
[2019-01-18] MEDS: LORAZEPAM 0.5 MG TAB PO ×3 (05:40→21:57)
[2019-01-18] MEDS: OXYCODONE/ACETAMINOPHEN (5/325) TAB PO ×2 (07:47→13:50)
[2019-01-18] MEDS: INSULIN ASPART [NOVOLOG] 3 ML PEN SC ×4 (07:53→21:21)
[2019-01-18] MEDS: NYSTATIN 30 GM POWDER BTL TOP ×2 (08:55→20:25)
[2019-01-18] MEDS: BALSAM PERU/CASTOR OIL 60 GM TUBE TOP ×2 (08:55→20:25)
[2019-01-18] MEDS: DIAZEPAM 2 MG TAB PO ×3 (08:57→20:23)
[2019-01-18] MEDS: DOXYCYCLINE 100 MG TAB PO ×2 (08:57→20:24)
[2019-01-18] MEDS: FAMOTIDINE 20 MG TAB PO (08:57)
[2019-01-18] MEDS: BACLOFEN 10 MG TAB PO ×3 (08:57→20:22)
[2019-01-18] MEDS: CITALOPRAM 20 MG TAB PO (08:58)
[2019-01-18] MEDS: DAKINS 0.0125%(1/40) 473 ML SOLUTION TP (09:04)
[2019-01-18] MEDS: COLLAGENASE 5 GM (UD JAR) TOP (09:04)
[2019-01-19] MEDS: OXYCODONE/ACETAMINOPHEN (5/325) TAB PO ×4 (02:47→23:55)
[2019-01-19] MEDS: PIPER-TAZO 3.375 GM IV (PMX) 100 ML IVPB ×4 (06:19→23:55)
[2019-01-19] MEDS: LORAZEPAM 0.5 MG TAB PO ×2 (07:53→16:34)
[2019-01-19] MEDS: INSULIN ASPART [NOVOLOG] 3 ML PEN SC ×4 (08:00→20:57)
[2019-01-19] MEDS: DOXYCYCLINE 100 MG TAB PO ×2 (08:35→20:57)
[2019-01-19] MEDS: CITALOPRAM 20 MG TAB PO (08:35)
[2019-01-19] MEDS: COLLAGENASE 5 GM (UD JAR) TOP (08:35)
[2019-01-19] MEDS: FAMOTIDINE 20 MG TAB PO (08:35)
[2019-01-19] MEDS: DIAZEPAM 2 MG TAB PO ×2 (08:35→12:33)
[2019-01-19] MEDS: BACLOFEN 10 MG TAB PO ×3 (08:36→20:58)
[2019-01-19] MEDS: BALSAM PERU/CASTOR OIL 60 GM TUBE TOP ×2 (08:42→21:00)
[2019-01-19] MEDS: DAKINS 0.0125%(1/40) 473 ML SOLUTION TP (08:42)
[2019-01-19] MEDS: NYSTATIN 30 GM POWDER BTL TOP ×2 (08:44→21:00)
[2019-01-20] MEDS: LORAZEPAM 0.5 MG TAB PO ×2 (03:45→17:35)
[2019-01-20] MEDS: PIPER-TAZO 3.375 GM IV (PMX) 100 ML IVPB ×3 (05:21→17:23)
[2019-01-20] MEDS: OXYCODONE/ACETAMINOPHEN (5/325) TAB PO ×3 (05:57→21:31)
[2019-01-20] MEDS: INSULIN ASPART [NOVOLOG] 3 ML PEN SC ×4 (08:00→21:00)
[2019-01-20] MEDS: BALSAM PERU/CASTOR OIL 60 GM TUBE TOP ×2 (08:22→21:37)
[2019-01-20] MEDS: COLLAGENASE 5 GM (UD JAR) TOP (08:22)
[2019-01-20] MEDS: DOXYCYCLINE 100 MG TAB PO ×2 (08:23→21:13)
[2019-01-20] MEDS: NYSTATIN 30 GM POWDER BTL TOP ×2 (08:23→21:36)
[2019-01-20] MEDS: DAKINS 0.0125%(1/40) 473 ML SOLUTION TP (08:23)
[2019-01-20] MEDS: CITALOPRAM 20 MG TAB PO (08:24)
[2019-01-20] MEDS: BACLOFEN 10 MG TAB PO ×3 (08:24→21:15)
[2019-01-20] MEDS: DIAZEPAM 2 MG TAB PO (11:22)
[2019-01-21] MEDS: PIPER-TAZO 3.375 GM IV (PMX) 100 ML IVPB (00:14)
[2019-01-21] MEDS: LORAZEPAM 0.5 MG TAB PO ×3 (01:29→19:58)
[2019-01-21] MEDS: OXYCODONE/ACETAMINOPHEN (5/325) TAB PO ×3 (05:40→21:27)
[2019-01-21] MEDS: DIAZEPAM 2 MG TAB PO (07:44)
[2019-01-21] MEDS: INSULIN ASPART [NOVOLOG] 3 ML PEN SC ×4 (08:00→22:21)
[2019-01-21] MEDS: COLLAGENASE 5 GM (UD JAR) TOP (08:58)
[2019-01-21] MEDS: BACLOFEN 10 MG TAB PO ×3 (08:59→19:58)
[2019-01-21] MEDS: CITALOPRAM 20 MG TAB PO (08:59)
[2019-01-21] MEDS: NYSTATIN 30 GM POWDER BTL TOP ×2 (09:00→21:27)
[2019-01-21] MEDS: BALSAM PERU/CASTOR OIL 60 GM TUBE TOP ×2 (09:00→21:00)
[2019-01-21] MEDS: DAKINS 0.0125%(1/40) 473 ML SOLUTION TP (09:00)
[2019-01-21 14:12] LABS: ADD MAN DIFF? NO
[2019-01-21 14:15] LABS: WHITE BLOOD COUNT 6.5 10^3/ul (4.8-10.8)
[2019-01-21 14:15] LABS: BASOPHILS % 0.6 % (0.0-2.0); EOSINOPHILS # 0.3 10^3/ul (0.0-0.5); EOSINOPHILS % 5.1 % (0.0-7.0); HEMATOCRIT 30.5 % (37.0-47.0); HEMOGLOBIN 9.8 g/dl (12.0-16.0); LYMPHOCYTES # 2.3 10^3/ul (0.8-2.9); LYMPHOCYTES % 34.9 % (15.0-51.0); MEAN CORPUSCULAR HEMOGLOBIN 29.6 pg (29.0-33.0); MEAN CORPUSCULAR HGB CONC 32.1 g/dl (32.0-37.0); MEAN CORPUSCULAR VOLUME 92.1 fl (82.0-101.0); MEAN PLATELET VOLUME 10.4 fl (7.4-10.4); MONOCYTE # 0.5 10^3/ul (0.3-0.9); MONOCYTES % 7.6 % (0.0-11.0); NEUTROPHIL # 3.3 10^3/ul (1.6-7.5); NEUTROPHILS % 51.3 % (39.0-77.0); PLATELET COUNT 187 10^3/UL (140-415); RED BLOOD COUNT 3.31 10^6/ul (4.20-5.40); RED CELL DISTRIBUTION WIDTH 15.8 % (11.5-14.5)
[2019-01-22] MEDS: INSULIN ASPART [NOVOLOG] 3 ML PEN SC ×4 (08:00→21:00)
[2019-01-22] MEDS: LORAZEPAM 0.5 MG TAB PO ×2 (08:07→16:20)
[2019-01-22] MEDS: BACLOFEN 10 MG TAB PO ×3 (09:42→21:28)
[2019-01-22] MEDS: CITALOPRAM 20 MG TAB PO (09:42)
[2019-01-22] MEDS: NYSTATIN 30 GM POWDER BTL TOP ×2 (09:48→21:30)
[2019-01-22] MEDS: OXYCODONE/ACETAMINOPHEN (5/325) TAB PO ×2 (15:18→21:39)
[2019-01-22] MEDS: COLLAGENASE 5 GM (UD JAR) TOP (15:18)
[2019-01-22] MEDS: DAKINS 0.0125%(1/40) 473 ML SOLUTION TP (15:19)
[2019-01-22] MEDS: BALSAM PERU/CASTOR OIL 60 GM TUBE TOP ×2 (15:19→21:29)
[2019-01-22 20:22] LABS: ADD MAN DIFF? NO
[2019-01-22 20:23] LABS: BASOPHILS % 0.6 % (0.0-2.0); EOSINOPHILS # 0.3 10^3/ul (0.0-0.5); EOSINOPHILS % 4.4 % (0.0-7.0); HEMATOCRIT 28.6 % (37.0-47.0); HEMOGLOBIN 9.3 g/dl (12.0-16.0); LYMPHOCYTES # 2.7 10^3/ul (0.8-2.9); LYMPHOCYTES % 40.5 % (15.0-51.0); MEAN CORPUSCULAR HEMOGLOBIN 29.6 pg (29.0-33.0); MEAN CORPUSCULAR HGB CONC 32.5 g/dl (32.0-37.0); MEAN CORPUSCULAR VOLUME 91.1 fl (82.0-101.0); MEAN PLATELET VOLUME 9.8 fl (7.4-10.4); MONOCYTE # 0.5 10^3/ul (0.3-0.9); MONOCYTES % 6.9 % (0.0-11.0); NEUTROPHIL # 3.1 10^3/ul (1.6-7.5); NEUTROPHILS % 47.3 % (39.0-77.0); PLATELET COUNT 203 10^3/UL (140-415); RED BLOOD COUNT 3.14 10^6/ul (4.20-5.40); RED CELL DISTRIBUTION WIDTH 15.6 % (11.5-14.5)
[2019-01-22 20:23] LABS: WHITE BLOOD COUNT 6.6 10^3/ul (4.8-10.8)
[2019-01-22] MEDS: DIAZEPAM 2 MG TAB PO (21:39)
[2019-01-23] MEDS: LORAZEPAM 0.5 MG TAB PO ×3 (02:05→20:04)
[2019-01-23] MEDS: OXYCODONE/ACETAMINOPHEN (5/325) TAB PO ×3 (07:45→21:11)
[2019-01-23] MEDS: INSULIN ASPART [NOVOLOG] 3 ML PEN SC ×4 (08:00→20:02)
[2019-01-23] MEDS: CITALOPRAM 20 MG TAB PO (08:22)
[2019-01-23] MEDS: BACLOFEN 10 MG TAB PO ×3 (08:24→20:04)
[2019-01-23] MEDS: NYSTATIN 30 GM POWDER BTL TOP ×2 (08:25→20:05)
[2019-01-23] MEDS: DAKINS 0.0125%(1/40) 473 ML SOLUTION TP (08:25)
[2019-01-23] MEDS: COLLAGENASE 5 GM (UD JAR) TOP (08:25)
[2019-01-23] MEDS: BALSAM PERU/CASTOR OIL 60 GM TUBE TOP ×2 (08:26→20:05)
[2019-01-24] MEDS: OXYCODONE/ACETAMINOPHEN (5/325) TAB PO ×3 (03:19→19:03)
[2019-01-24] MEDS: LORAZEPAM 0.5 MG TAB PO ×3 (05:11→23:26)
[2019-01-24] MEDS: INSULIN ASPART [NOVOLOG] 3 ML PEN SC ×4 (08:00→21:00)
[2019-01-24] MEDS: CITALOPRAM 20 MG TAB PO (08:38)
[2019-01-24] MEDS: BACLOFEN 10 MG TAB PO ×3 (08:38→22:00)
[2019-01-24] MEDS: DIAZEPAM 2 MG TAB PO ×2 (08:39→16:02)
[2019-01-24] MEDS: COLLAGENASE 5 GM (UD JAR) TOP (08:42)
[2019-01-24] MEDS: BALSAM PERU/CASTOR OIL 60 GM TUBE TOP ×2 (08:42→21:00)
[2019-01-24] MEDS: NYSTATIN 30 GM POWDER BTL TOP ×2 (08:42→21:00)
[2019-01-24] MEDS: DAKINS 0.0125%(1/40) 473 ML SOLUTION TP (08:42)
[2019-01-25] MEDS: OXYCODONE/ACETAMINOPHEN (5/325) TAB PO ×4 (02:41→21:54)
[2019-01-25] MEDS: DIAZEPAM 2 MG TAB PO (06:24)
[2019-01-25] MEDS: INSULIN ASPART [NOVOLOG] 3 ML PEN SC ×4 (08:45→20:35)
[2019-01-25] MEDS: BACLOFEN 10 MG TAB PO ×3 (09:08→20:39)
[2019-01-25] MEDS: CITALOPRAM 20 MG TAB PO (09:08)
[2019-01-25] MEDS: COLLAGENASE 5 GM (UD JAR) TOP (09:09)
[2019-01-25] MEDS: NYSTATIN 30 GM POWDER BTL TOP ×2 (09:10→20:41)
[2019-01-25] MEDS: BALSAM PERU/CASTOR OIL 60 GM TUBE TOP ×2 (09:11→20:41)
[2019-01-25] MEDS: DAKINS 0.0125%(1/40) 473 ML SOLUTION TP (11:09)
[2019-01-25] MEDS: LORAZEPAM 0.5 MG TAB PO ×2 (11:11→20:40)
[2019-01-26] MEDS: DIAZEPAM 2 MG TAB PO ×2 (00:58→20:45)
[2019-01-26] MEDS: OXYCODONE/ACETAMINOPHEN (5/325) TAB PO ×3 (04:55→19:37)
[2019-01-26] MEDS: INSULIN ASPART [NOVOLOG] 3 ML PEN SC ×4 (08:00→20:17)
[2019-01-26] MEDS: BACLOFEN 10 MG TAB PO ×3 (08:21→20:18)
[2019-01-26] MEDS: LORAZEPAM 0.5 MG TAB PO ×2 (08:21→17:05)
[2019-01-26] MEDS: COLLAGENASE 5 GM (UD JAR) TOP (08:23)
[2019-01-26] MEDS: CITALOPRAM 20 MG TAB PO (08:23)
[2019-01-26] MEDS: BALSAM PERU/CASTOR OIL 60 GM TUBE TOP ×2 (08:24→20:19)
[2019-01-26] MEDS: DAKINS 0.0125%(1/40) 473 ML SOLUTION TP (08:24)
[2019-01-26] MEDS: NYSTATIN 30 GM POWDER BTL TOP ×2 (09:00→20:18)
[2019-01-27] MEDS: LORAZEPAM 0.5 MG TAB PO ×3 (01:11→20:09)
[2019-01-27] MEDS: OXYCODONE/ACETAMINOPHEN (5/325) TAB PO ×3 (06:45→21:11)
[2019-01-27] MEDS: CITALOPRAM 20 MG TAB PO (08:27)
[2019-01-27] MEDS: BACLOFEN 10 MG TAB PO ×3 (08:28→20:07)
[2019-01-27] MEDS: COLLAGENASE 5 GM (UD JAR) TOP (08:31)
[2019-01-27] MEDS: NYSTATIN 30 GM POWDER BTL TOP ×2 (08:31→20:08)
[2019-01-27] MEDS: DAKINS 0.0125%(1/40) 473 ML SOLUTION TP (08:32)
[2019-01-27] MEDS: BALSAM PERU/CASTOR OIL 60 GM TUBE TOP ×2 (08:32→20:09)
[2019-01-27] MEDS: INSULIN ASPART [NOVOLOG] 3 ML PEN SC ×4 (08:35→20:10)
[2019-01-27] MEDS: DIAZEPAM 2 MG TAB PO (12:28)
[2019-01-28] MEDS: LORAZEPAM 0.5 MG TAB PO ×3 (05:28→19:33)
[2019-01-28] MEDS: CITALOPRAM 20 MG TAB PO (08:18)
[2019-01-28] MEDS: BACLOFEN 10 MG TAB PO ×3 (08:18→21:18)
[2019-01-28] MEDS: DAKINS 0.0125%(1/40) 473 ML SOLUTION TP (08:20)
[2019-01-28] MEDS: OXYCODONE/ACETAMINOPHEN (5/325) TAB PO ×2 (08:20→15:55)
[2019-01-28] MEDS: NYSTATIN 30 GM POWDER BTL TOP ×2 (08:21→21:17)
[2019-01-28] MEDS: COLLAGENASE 5 GM (UD JAR) TOP (08:21)
[2019-01-28] MEDS: BALSAM PERU/CASTOR OIL 60 GM TUBE TOP ×2 (08:21→21:17)
[2019-01-28] MEDS: INSULIN ASPART [NOVOLOG] 3 ML PEN SC ×4 (08:26→21:00)
[2019-01-28 08:43] LABS: ADD MAN DIFF? NO
[2019-01-28 08:45] LABS: WHITE BLOOD COUNT 5.7 10^3/ul (4.8-10.8)
[2019-01-28 08:45] LABS: BASOPHILS % 0.7 % (0.0-2.0); EOSINOPHILS # 0.2 10^3/ul (0.0-0.5); HEMATOCRIT 29.8 % (37.0-47.0); HEMOGLOBIN 9.6 g/dl (12.0-16.0); LYMPHOCYTES # 1.6 10^3/ul (0.8-2.9); LYMPHOCYTES % 28.3 % (15.0-51.0); MEAN CORPUSCULAR HEMOGLOBIN 29.4 pg (29.0-33.0); MEAN CORPUSCULAR HGB CONC 32.2 g/dl (32.0-37.0); MEAN CORPUSCULAR VOLUME 91.4 fl (82.0-101.0); MEAN PLATELET VOLUME 10.2 fl (7.4-10.4); MONOCYTE # 0.5 10^3/ul (0.3-0.9); NEUTROPHIL # 3.4 10^3/ul (1.6-7.5); NEUTROPHILS % 59.3 % (39.0-77.0); PLATELET COUNT 211 10^3/UL (140-415); RED BLOOD COUNT 3.26 10^6/ul (4.20-5.40); RED CELL DISTRIBUTION WIDTH 15.8 % (11.5-14.5)
[2019-01-28 09:09] LABS: ANION GAP 10 (5-13); BLOOD UREA NITROGEN 42 mg/dl (7-20); CALCIUM 10.3 mg/dl (8.4-10.2); CARBON DIOXIDE 22 mmol/L (21-31); CHLORIDE 108 mmol/L (97-110); CREATININE 0.95 mg/dl (0.44-1.00); Estimated GFR > 60 mL/min (>60); GLUCOSE 122 mg/dl (70-220); POTASSIUM 4.2 mmol/L (3.5-5.1); SODIUM 140 mmol/L (135-144)
[2019-01-28] MEDS: DIAZEPAM 2 MG TAB PO (15:55)
[2019-01-29] MEDS: LORAZEPAM 0.5 MG TAB PO ×3 (03:34→20:59)
[2019-01-29] MEDS: OXYCODONE/ACETAMINOPHEN (5/325) TAB PO ×3 (07:19→23:08)
[2019-01-29] MEDS: DIAZEPAM 2 MG TAB PO ×2 (07:19→16:12)
[2019-01-29] MEDS: NYSTATIN 30 GM POWDER BTL TOP ×2 (08:57→21:03)
[2019-01-29] MEDS: COLLAGENASE 5 GM (UD JAR) TOP (08:57)
[2019-01-29] MEDS: CITALOPRAM 20 MG TAB PO (08:57)
[2019-01-29] MEDS: BACLOFEN 10 MG TAB PO ×3 (08:57→21:00)
[2019-01-29] MEDS: BALSAM PERU/CASTOR OIL 60 GM TUBE TOP ×2 (08:57→21:03)
[2019-01-29] MEDS: DAKINS 0.0125%(1/40) 473 ML SOLUTION TP (08:58)
[2019-01-29] MEDS: INSULIN ASPART [NOVOLOG] 3 ML PEN SC ×4 (09:01→21:00)
[2019-01-29 11:06] LABS: WHITE BLOOD COUNT 5.2 10^3/ul (4.8-10.8)
[2019-01-29 11:06] LABS: ADD MAN DIFF? NO; BASOPHILS % 0.8 % (0.0-2.0); EOSINOPHILS # 0.2 10^3/ul (0.0-0.5); EOSINOPHILS % 4.2 % (0.0-7.0); HEMATOCRIT 31.9 % (37.0-47.0); HEMOGLOBIN 10.2 g/dl (12.0-16.0); LYMPHOCYTES # 1.9 10^3/ul (0.8-2.9); LYMPHOCYTES % 36.8 % (15.0-51.0); MEAN CORPUSCULAR HEMOGLOBIN 29.2 pg (29.0-33.0); MEAN CORPUSCULAR VOLUME 91.4 fl (82.0-101.0); MEAN PLATELET VOLUME 10.2 fl (7.4-10.4); MONOCYTE # 0.5 10^3/ul (0.3-0.9); MONOCYTES % 10.3 % (0.0-11.0); NEUTROPHIL # 2.5 10^3/ul (1.6-7.5); NEUTROPHILS % 47.5 % (39.0-77.0); PLATELET COUNT 261 10^3/UL (140-415); RED BLOOD COUNT 3.49 10^6/ul (4.20-5.40); RED CELL DISTRIBUTION WIDTH 15.8 % (11.5-14.5)
[2019-01-30] MEDS: DIAZEPAM 2 MG TAB PO ×2 (04:22→12:20)
[2019-01-30] MEDS: OXYCODONE/ACETAMINOPHEN (5/325) TAB PO ×3 (06:48→20:49)
[2019-01-30] MEDS: LORAZEPAM 0.5 MG TAB PO ×2 (07:41→17:08)
[2019-01-30] MEDS: INSULIN ASPART [NOVOLOG] 3 ML PEN SC ×4 (09:10→20:54)
[2019-01-30] MEDS: CITALOPRAM 20 MG TAB PO (09:11)
[2019-01-30] MEDS: BACLOFEN 10 MG TAB PO ×3 (09:12→20:50)
[2019-01-30] MEDS: DAKINS 0.0125%(1/40) 473 ML SOLUTION TP (09:12)
[2019-01-30] MEDS: NYSTATIN 30 GM POWDER BTL TOP ×2 (09:12→20:53)
[2019-01-30] MEDS: COLLAGENASE 5 GM (UD JAR) TOP (09:13)
[2019-01-30] MEDS: BALSAM PERU/CASTOR OIL 60 GM TUBE TOP ×2 (09:13→20:53)
[2019-01-31] MEDS: LORAZEPAM 0.5 MG TAB PO ×2 (05:20→17:17)
[2019-01-31] MEDS: OXYCODONE/ACETAMINOPHEN (5/325) TAB PO ×3 (06:29→18:18)
[2019-01-31] MEDS: BACLOFEN 10 MG TAB PO ×3 (08:30→20:25)
[2019-01-31] MEDS: INSULIN ASPART [NOVOLOG] 3 ML PEN SC ×4 (08:30→20:19)
[2019-01-31] MEDS: CITALOPRAM 20 MG TAB PO (08:30)
[2019-01-31] MEDS: COLLAGENASE 5 GM (UD JAR) TOP (08:30)
[2019-01-31] MEDS: DAKINS 0.0125%(1/40) 473 ML SOLUTION TP (08:35)
[2019-01-31] MEDS: NYSTATIN 30 GM POWDER BTL TOP ×3 (08:36→21:00)
[2019-01-31] MEDS: BALSAM PERU/CASTOR OIL 60 GM TUBE TOP ×2 (08:36→20:26)
[2019-01-31] MEDS: DIAZEPAM 2 MG TAB PO ×2 (11:22→22:43)
[2019-02-01] MEDS: OXYCODONE/ACETAMINOPHEN (5/325) TAB PO ×4 (01:47→20:19)
[2019-02-01] MEDS: LORAZEPAM 0.5 MG TAB PO ×2 (06:31→15:46)
[2019-02-01] MEDS: INSULIN ASPART [NOVOLOG] 3 ML PEN SC ×4 (08:00→20:20)
[2019-02-01] MEDS: CITALOPRAM 20 MG TAB PO (08:08)
[2019-02-01] MEDS: COLLAGENASE 5 GM (UD JAR) TOP (08:08)
[2019-02-01] MEDS: BACLOFEN 10 MG TAB PO ×3 (08:08→20:19)
[2019-02-01] MEDS: BALSAM PERU/CASTOR OIL 60 GM TUBE TOP ×2 (08:09→20:22)
[2019-02-01] MEDS: DAKINS 0.0125%(1/40) 473 ML SOLUTION TP (08:09)
[2019-02-01] MEDS: NYSTATIN 30 GM POWDER BTL TOP ×2 (08:09→20:22)
[2019-02-01] MEDS: DIAZEPAM 2 MG TAB PO (12:34)
[2019-02-02] MEDS: OXYCODONE/ACETAMINOPHEN (5/325) TAB PO ×3 (03:12→17:58)
[2019-02-02] MEDS: INSULIN ASPART [NOVOLOG] 3 ML PEN SC ×4 (08:00→20:43)
[2019-02-02] MEDS: LORAZEPAM 0.5 MG TAB PO ×2 (08:15→20:29)
[2019-02-02] MEDS: BACLOFEN 10 MG TAB PO ×3 (08:15→20:29)
[2019-02-02] MEDS: CITALOPRAM 20 MG TAB PO (08:15)
[2019-02-02] MEDS: DAKINS 0.0125%(1/40) 473 ML SOLUTION TP (08:17)
[2019-02-02] MEDS: COLLAGENASE 5 GM (UD JAR) TOP (08:17)
[2019-02-02] MEDS: BALSAM PERU/CASTOR OIL 60 GM TUBE TOP ×2 (08:18→20:31)
[2019-02-02] MEDS: NYSTATIN 30 GM POWDER BTL TOP ×2 (08:18→20:31)
[2019-02-02] MEDS: DIAZEPAM 2 MG TAB PO (16:56)
[2019-02-02] MEDS: POLYETHYLENE GLYCOL 17 GM PACKET PO (17:10)
[2019-02-03] MEDS: OXYCODONE/ACETAMINOPHEN (5/325) TAB PO ×4 (00:52→19:45)
[2019-02-03] MEDS: INSULIN ASPART [NOVOLOG] 3 ML PEN SC ×4 (08:00→20:46)
[2019-02-03] MEDS: LORAZEPAM 0.5 MG TAB PO ×2 (08:28→17:23)
[2019-02-03] MEDS: BACLOFEN 10 MG TAB PO ×3 (08:29→20:47)
[2019-02-03] MEDS: CITALOPRAM 20 MG TAB PO (08:29)
[2019-02-03] MEDS: COLLAGENASE 5 GM (UD JAR) TOP (08:29)
[2019-02-03] MEDS: NYSTATIN 30 GM POWDER BTL TOP ×2 (08:30→21:37)
[2019-02-03] MEDS: DAKINS 0.0125%(1/40) 473 ML SOLUTION TP (08:30)
[2019-02-03] MEDS: BALSAM PERU/CASTOR OIL 60 GM TUBE TOP ×2 (08:30→21:37)
[2019-02-03] MEDS: POLYETHYLENE GLYCOL 17 GM PACKET PO ×2 (14:30→20:58)
[2019-02-03] MEDS: DOCUSATE SODIUM 100 MG CAP PO ×2 (14:30→20:57)
[2019-02-03] MEDS: DIAZEPAM 2 MG TAB PO (20:49)
[2019-02-04] MEDS: OXYCODONE/ACETAMINOPHEN (5/325) TAB PO ×3 (05:33→18:08)
[2019-02-04 07:24] LABS: ADD MAN DIFF? NO
[2019-02-04 07:25] LABS: BASOPHILS % 0.6 % (0.0-2.0); EOSINOPHILS # 0.2 10^3/ul (0.0-0.5); EOSINOPHILS % 2.8 % (0.0-7.0); HEMATOCRIT 29.7 % (37.0-47.0); HEMOGLOBIN 9.6 g/dl (12.0-16.0); LYMPHOCYTES # 1.4 10^3/ul (0.8-2.9); MEAN CORPUSCULAR HEMOGLOBIN 29.5 pg (29.0-33.0); MEAN CORPUSCULAR HGB CONC 32.3 g/dl (32.0-37.0); MEAN CORPUSCULAR VOLUME 91.4 fl (82.0-101.0); MEAN PLATELET VOLUME 10.1 fl (7.4-10.4); MONOCYTE # 0.6 10^3/ul (0.3-0.9); MONOCYTES % 10.5 % (0.0-11.0); NEUTROPHIL # 3.1 10^3/ul (1.6-7.5); NEUTROPHILS % 58.7 % (39.0-77.0); PLATELET COUNT 214 10^3/UL (140-415); RED BLOOD COUNT 3.25 10^6/ul (4.20-5.40); RED CELL DISTRIBUTION WIDTH 15.2 % (11.5-14.5)
[2019-02-04 07:25] LABS: WHITE BLOOD COUNT 5.3 10^3/ul (4.8-10.8)
[2019-02-04 07:43] LABS: ANION GAP 12 (5-13); BLOOD UREA NITROGEN 41 mg/dl (7-20); CARBON DIOXIDE 23 mmol/L (21-31); CHLORIDE 104 mmol/L (97-110); CREATININE 0.99 mg/dl (0.44-1.00); Estimated GFR 58 mL/min (>60); GLUCOSE 128 mg/dl (70-220); POTASSIUM 3.9 mmol/L (3.5-5.1); SODIUM 139 mmol/L (135-144)
[2019-02-04] MEDS: DOCUSATE SODIUM 100 MG CAP PO ×3 (07:54→20:24)
[2019-02-04] MEDS: POLYETHYLENE GLYCOL 17 GM PACKET PO ×2 (07:55→20:26)
[2019-02-04] MEDS: INSULIN ASPART [NOVOLOG] 3 ML PEN SC ×4 (08:00→20:30)
[2019-02-04] MEDS: BACLOFEN 10 MG TAB PO ×3 (08:10→20:24)
[2019-02-04] MEDS: CITALOPRAM 20 MG TAB PO (08:10)
[2019-02-04] MEDS: COLLAGENASE 5 GM (UD JAR) TOP (08:10)
[2019-02-04] MEDS: BALSAM PERU/CASTOR OIL 60 GM TUBE TOP ×2 (08:11→20:26)
[2019-02-04] MEDS: DAKINS 0.0125%(1/40) 473 ML SOLUTION TP (08:11)
[2019-02-04] MEDS: NYSTATIN 30 GM POWDER BTL TOP ×2 (08:11→20:27)
[2019-02-04] MEDS: LORAZEPAM 0.5 MG TAB PO (15:25)
[2019-02-05] MEDS: OXYCODONE/ACETAMINOPHEN (5/325) TAB PO ×3 (03:07→18:17)
[2019-02-05] MEDS: LORAZEPAM 0.5 MG TAB PO ×2 (06:27→22:57)
[2019-02-05] MEDS: INSULIN ASPART [NOVOLOG] 3 ML PEN SC ×4 (08:00→20:58)
[2019-02-05] MEDS: COLLAGENASE 5 GM (UD JAR) TOP (08:28)
[2019-02-05] MEDS: NYSTATIN 30 GM POWDER BTL TOP (08:29)
[2019-02-05] MEDS: DAKINS 0.0125%(1/40) 473 ML SOLUTION TP (08:30)
[2019-02-05] MEDS: BALSAM PERU/CASTOR OIL 60 GM TUBE TOP ×2 (08:30→21:05)
[2019-02-05] MEDS: CITALOPRAM 20 MG TAB PO (08:30)
[2019-02-05] MEDS: POLYETHYLENE GLYCOL 17 GM PACKET PO ×2 (08:30→21:00)
[2019-02-05] MEDS: BACLOFEN 10 MG TAB PO ×3 (08:31→21:03)
[2019-02-05] MEDS: DOCUSATE SODIUM 100 MG CAP PO ×2 (08:31→21:04)
[2019-02-05] MEDS: DIAZEPAM 2 MG TAB PO (15:18)
[2019-02-06] MEDS: OXYCODONE/ACETAMINOPHEN (5/325) TAB PO ×4 (00:18→18:35)
[2019-02-06] MEDS: DOCUSATE SODIUM 100 MG CAP PO ×2 (08:50→20:48)
[2019-02-06] MEDS: INSULIN ASPART [NOVOLOG] 3 ML PEN SC ×4 (08:50→21:00)
[2019-02-06] MEDS: CITALOPRAM 20 MG TAB PO (08:50)
[2019-02-06] MEDS: COLLAGENASE 5 GM (UD JAR) TOP (08:51)
[2019-02-06] MEDS: DIAZEPAM 2 MG TAB PO ×2 (08:51→20:48)
[2019-02-06] MEDS: BALSAM PERU/CASTOR OIL 60 GM TUBE TOP ×2 (08:51→20:59)
[2019-02-06] MEDS: BACLOFEN 10 MG TAB PO ×3 (08:51→20:48)
[2019-02-06] MEDS: DAKINS 0.0125%(1/40) 473 ML SOLUTION TP (08:52)
[2019-02-06] MEDS: POLYETHYLENE GLYCOL 17 GM PACKET PO ×2 (09:00→21:00)
[2019-02-06] MEDS: GUAIFENESIN 20 MG/ML 5ML CUP PO (23:11)
[2019-02-07] MEDS: OXYCODONE/ACETAMINOPHEN (5/325) TAB PO ×4 (01:55→20:20)
[2019-02-07] MEDS: DIPHENHYDRAMINE 25 MG CAP PO ×2 (05:25)
[2019-02-07] MEDS: INSULIN ASPART [NOVOLOG] 3 ML PEN SC ×4 (08:00→21:00)
[2019-02-07] MEDS: DOCUSATE SODIUM 100 MG CAP PO ×2 (08:42→20:20)
[2019-02-07] MEDS: BACLOFEN 10 MG TAB PO ×3 (08:42→20:19)
[2019-02-07] MEDS: CITALOPRAM 20 MG TAB PO (08:43)
[2019-02-07] MEDS: COLLAGENASE 5 GM (UD JAR) TOP (08:44)
[2019-02-07] MEDS: POLYETHYLENE GLYCOL 17 GM PACKET PO ×2 (08:44→20:19)
[2019-02-07] MEDS: BALSAM PERU/CASTOR OIL 60 GM TUBE TOP ×3 (08:45→21:00)
[2019-02-07] MEDS: DAKINS 0.0125%(1/40) 473 ML SOLUTION TP (08:45)
[2019-02-07] MEDS: LORAZEPAM 0.5 MG TAB PO (17:24)
[2019-02-08] MEDS: OXYCODONE/ACETAMINOPHEN (5/325) TAB PO ×4 (02:28→20:38)
[2019-02-08] MEDS: INSULIN ASPART [NOVOLOG] 3 ML PEN SC ×4 (08:00→20:39)
[2019-02-08] MEDS: DOCUSATE SODIUM 100 MG CAP PO ×2 (08:16→20:38)
[2019-02-08] MEDS: CITALOPRAM 20 MG TAB PO (08:17)
[2019-02-08] MEDS: POLYETHYLENE GLYCOL 17 GM PACKET PO ×2 (08:18→20:38)
[2019-02-08] MEDS: BACLOFEN 10 MG TAB PO ×3 (08:18→20:38)
[2019-02-08] MEDS: COLLAGENASE 5 GM (UD JAR) TOP (08:18)
[2019-02-08] MEDS: BALSAM PERU/CASTOR OIL 60 GM TUBE TOP ×2 (08:20→20:48)
[2019-02-08] MEDS: DAKINS 0.0125%(1/40) 473 ML SOLUTION TP (08:21)
[2019-02-08] MEDS: LORATADINE 10 MG TAB PO (14:54)
[2019-02-08] MEDS: DIAZEPAM 2 MG TAB PO (17:03)
[2019-02-08] MEDS: GUAIFENESIN LA 600 MG TABSR PO ×2 (17:03→22:59)
[2019-02-09] MEDS: OXYCODONE/ACETAMINOPHEN (5/325) TAB PO ×4 (02:36→21:29)
[2019-02-09] MEDS: INSULIN ASPART [NOVOLOG] 3 ML PEN SC ×4 (08:00→20:36)
[2019-02-09] MEDS: CITALOPRAM 20 MG TAB PO (08:28)
[2019-02-09] MEDS: POLYETHYLENE GLYCOL 17 GM PACKET PO ×2 (08:28→20:36)
[2019-02-09] MEDS: COLLAGENASE 5 GM (UD JAR) TOP (08:28)
[2019-02-09] MEDS: BACLOFEN 10 MG TAB PO ×3 (08:29→20:36)
[2019-02-09] MEDS: DOCUSATE SODIUM 100 MG CAP PO ×2 (08:29→20:36)
[2019-02-09] MEDS: LORATADINE 10 MG TAB PO (08:29)
[2019-02-09] MEDS: GUAIFENESIN LA 600 MG TABSR PO ×2 (08:29→20:36)
[2019-02-09] MEDS: DAKINS 0.0125%(1/40) 473 ML SOLUTION TP (08:31)
[2019-02-09] MEDS: BALSAM PERU/CASTOR OIL 60 GM TUBE TOP ×2 (08:31→20:41)
[2019-02-09] MEDS: LORAZEPAM 0.5 MG TAB PO (17:54)
[2019-02-10] MEDS: OXYCODONE/ACETAMINOPHEN (5/325) TAB PO ×4 (04:18→22:40)
[2019-02-10] MEDS: INSULIN ASPART [NOVOLOG] 3 ML PEN SC ×4 (08:00→20:55)
[2019-02-10] MEDS: POLYETHYLENE GLYCOL 17 GM PACKET PO ×2 (08:23→20:55)
[2019-02-10] MEDS: DOCUSATE SODIUM 100 MG CAP PO ×2 (08:24→20:55)
[2019-02-10] MEDS: GUAIFENESIN LA 600 MG TABSR PO ×2 (08:24→20:54)
[2019-02-10] MEDS: CITALOPRAM 20 MG TAB PO (08:24)
[2019-02-10] MEDS: BACLOFEN 10 MG TAB PO ×3 (08:24→20:55)
[2019-02-10] MEDS: COLLAGENASE 5 GM (UD JAR) TOP (08:24)
[2019-02-10] MEDS: LORATADINE 10 MG TAB PO (08:25)
[2019-02-10] MEDS: DAKINS 0.0125%(1/40) 473 ML SOLUTION TP (08:26)
[2019-02-10] MEDS: BALSAM PERU/CASTOR OIL 60 GM TUBE TOP ×2 (08:26→20:59)
[2019-02-10] MEDS: DIAZEPAM 2 MG TAB PO (19:47)
[2019-02-11] MEDS: OXYCODONE/ACETAMINOPHEN (5/325) TAB PO ×3 (04:43→17:49)
[2019-02-11] MEDS: INSULIN ASPART [NOVOLOG] 3 ML PEN SC ×4 (08:00→21:00)
[2019-02-11] MEDS: CITALOPRAM 20 MG TAB PO (08:16)
[2019-02-11] MEDS: LORAZEPAM 0.5 MG TAB PO ×2 (08:17→16:36)
[2019-02-11] MEDS: DOCUSATE SODIUM 100 MG CAP PO ×2 (08:17→21:29)
[2019-02-11] MEDS: BACLOFEN 10 MG TAB PO ×3 (08:17→21:29)
[2019-02-11] MEDS: GUAIFENESIN LA 600 MG TABSR PO ×2 (08:17→21:00)
[2019-02-11] MEDS: LORATADINE 10 MG TAB PO (08:17)
[2019-02-11] MEDS: COLLAGENASE 5 GM (UD JAR) TOP (08:18)
[2019-02-11] MEDS: POLYETHYLENE GLYCOL 17 GM PACKET PO ×2 (08:18→21:29)
[2019-02-11] MEDS: DAKINS 0.0125%(1/40) 473 ML SOLUTION TP (08:20)
[2019-02-11] MEDS: BALSAM PERU/CASTOR OIL 60 GM TUBE TOP ×2 (08:20→21:32)
[2019-02-12] MEDS: OXYCODONE/ACETAMINOPHEN (5/325) TAB PO ×4 (05:30→23:46)
[2019-02-12 06:04] LABS: ADD MAN DIFF? NO
[2019-02-12 06:13] LABS: BASOPHILS % 0.7 % (0.0-2.0); EOSINOPHILS # 0.2 10^3/ul (0.0-0.5); HEMATOCRIT 32.1 % (37.0-47.0); HEMOGLOBIN 10.4 g/dl (12.0-16.0); LYMPHOCYTES # 2.1 10^3/ul (0.8-2.9); MEAN CORPUSCULAR HEMOGLOBIN 29.6 pg (29.0-33.0); MEAN CORPUSCULAR HGB CONC 32.4 g/dl (32.0-37.0); MEAN CORPUSCULAR VOLUME 91.5 fl (82.0-101.0); MEAN PLATELET VOLUME 10.5 fl (7.4-10.4); MONOCYTE # 0.4 10^3/ul (0.3-0.9); MONOCYTES % 7.8 % (0.0-11.0); NEUTROPHIL # 2.7 10^3/ul (1.6-7.5); NEUTROPHILS % 49.3 % (39.0-77.0); PLATELET COUNT 216 10^3/UL (140-415); RED BLOOD COUNT 3.51 10^6/ul (4.20-5.40); RED CELL DISTRIBUTION WIDTH 14.1 % (11.5-14.5)
[2019-02-12 06:13] LABS: WHITE BLOOD COUNT 5.5 10^3/ul (4.8-10.8)
[2019-02-12 06:33] LABS: ANION GAP 10 (5-13); BLOOD UREA NITROGEN 62 mg/dl (7-20); CALCIUM 10.2 mg/dl (8.4-10.2); CARBON DIOXIDE 25 mmol/L (21-31); CHLORIDE 105 mmol/L (97-110); CREATININE 1.16 mg/dl (0.44-1.00); Estimated GFR 48 mL/min (>60); GLUCOSE 108 mg/dl (70-220); MAGNESIUM 2.2 mg/dl (1.7-2.5); POTASSIUM 4.3 mmol/L (3.5-5.1); SODIUM 140 mmol/L (135-144)
[2019-02-12] MEDS: INSULIN ASPART [NOVOLOG] 3 ML PEN SC ×4 (07:59→20:46)
[2019-02-12] MEDS: GUAIFENESIN LA 600 MG TABSR PO ×2 (08:44→20:44)
[2019-02-12] MEDS: LORATADINE 10 MG TAB PO (08:44)
[2019-02-12] MEDS: DOCUSATE SODIUM 100 MG CAP PO ×2 (08:45→20:44)
[2019-02-12] MEDS: BACLOFEN 10 MG TAB PO ×3 (08:45→20:44)
[2019-02-12] MEDS: CITALOPRAM 20 MG TAB PO (08:46)
[2019-02-12] MEDS: COLLAGENASE 5 GM (UD JAR) TOP (08:47)
[2019-02-12] MEDS: POLYETHYLENE GLYCOL 17 GM PACKET PO ×2 (08:47→20:45)
[2019-02-12] MEDS: BALSAM PERU/CASTOR OIL 60 GM TUBE TOP ×2 (08:48→20:48)
[2019-02-12] MEDS: DAKINS 0.0125%(1/40) 473 ML SOLUTION TP (08:48)
[2019-02-12] MEDS: ENOXAPARIN 40 MG/0.4 ML SYG SC ×2 (08:49→08:52)
[2019-02-12] MEDS: LORAZEPAM 0.5 MG TAB PO (16:02)
[2019-02-12] MEDS: DIAZEPAM 2 MG TAB PO (20:44)
[2019-02-13] MEDS: OXYCODONE/ACETAMINOPHEN (5/325) TAB PO ×3 (07:39→19:59)
[2019-02-13] MEDS: INSULIN ASPART [NOVOLOG] 3 ML PEN SC ×4 (08:00→21:00)
[2019-02-13] MEDS: BACLOFEN 10 MG TAB PO ×3 (08:47→20:00)
[2019-02-13] MEDS: DOCUSATE SODIUM 100 MG CAP PO ×2 (08:47→20:01)
[2019-02-13] MEDS: CITALOPRAM 20 MG TAB PO (08:47)
[2019-02-13] MEDS: COLLAGENASE 5 GM (UD JAR) TOP (08:48)
[2019-02-13] MEDS: GUAIFENESIN LA 600 MG TABSR PO ×2 (08:48→20:00)
[2019-02-13] MEDS: ENOXAPARIN 40 MG/0.4 ML SYG SC (08:48)
[2019-02-13] MEDS: LORATADINE 10 MG TAB PO (08:48)
[2019-02-13] MEDS: POLYETHYLENE GLYCOL 17 GM PACKET PO ×2 (08:49→20:01)
[2019-02-13] MEDS: DAKINS 0.0125%(1/40) 473 ML SOLUTION TP (08:52)
[2019-02-13] MEDS: BALSAM PERU/CASTOR OIL 60 GM TUBE TOP ×2 (08:52→21:00)
[2019-02-13] MEDS: DIAZEPAM 2 MG TAB PO ×2 (11:53→21:59)
[2019-02-14] MEDS: OXYCODONE/ACETAMINOPHEN (5/325) TAB PO ×4 (02:03→20:53)
[2019-02-14] MEDS: LORAZEPAM 0.5 MG TAB PO ×2 (06:13→23:27)
[2019-02-14] MEDS: INSULIN ASPART [NOVOLOG] 3 ML PEN SC ×4 (08:00→20:51)
[2019-02-14] MEDS: BACLOFEN 10 MG TAB PO ×3 (08:33→20:51)
[2019-02-14] MEDS: CITALOPRAM 20 MG TAB PO (08:33)
[2019-02-14] MEDS: LORATADINE 10 MG TAB PO (08:33)
[2019-02-14] MEDS: GUAIFENESIN LA 600 MG TABSR PO ×2 (08:33→20:51)
[2019-02-14] MEDS: DOCUSATE SODIUM 100 MG CAP PO ×3 (08:34→21:00)
[2019-02-14] MEDS: POLYETHYLENE GLYCOL 17 GM PACKET PO ×3 (08:34→21:00)
[2019-02-14] MEDS: ENOXAPARIN 40 MG/0.4 ML SYG SC (08:34)
[2019-02-14] MEDS: COLLAGENASE 5 GM (UD JAR) TOP (08:34)
[2019-02-14] MEDS: BALSAM PERU/CASTOR OIL 60 GM TUBE TOP ×2 (08:35→20:56)
[2019-02-14] MEDS: DAKINS 0.0125%(1/40) 473 ML SOLUTION TP (08:35)
[2019-02-14] MEDS: DIAZEPAM 2 MG TAB PO (15:06)
[2019-02-15] MEDS: OXYCODONE/ACETAMINOPHEN (5/325) TAB PO ×4 (03:24→21:34)
[2019-02-15] MEDS: DIAZEPAM 2 MG TAB PO (06:56)
[2019-02-15] MEDS: INSULIN ASPART [NOVOLOG] 3 ML PEN SC ×4 (08:00→20:42)
[2019-02-15] MEDS: BACLOFEN 10 MG TAB PO ×3 (08:18→20:41)
[2019-02-15] MEDS: GUAIFENESIN LA 600 MG TABSR PO ×2 (08:18→20:40)
[2019-02-15] MEDS: LORATADINE 10 MG TAB PO (08:18)
[2019-02-15] MEDS: DOCUSATE SODIUM 100 MG CAP PO ×2 (08:18→20:40)
[2019-02-15] MEDS: CITALOPRAM 20 MG TAB PO (08:18)
[2019-02-15] MEDS: POLYETHYLENE GLYCOL 17 GM PACKET PO ×3 (08:18→20:46)
[2019-02-15] MEDS: ENOXAPARIN 40 MG/0.4 ML SYG SC (08:19)
[2019-02-15] MEDS: DAKINS 0.0125%(1/40) 473 ML SOLUTION TP (08:19)
[2019-02-15] MEDS: BALSAM PERU/CASTOR OIL 60 GM TUBE TOP ×2 (08:19→20:39)
[2019-02-15] MEDS: COLLAGENASE 5 GM (UD JAR) TOP (08:20)
[2019-02-15] MEDS: LORAZEPAM 0.5 MG TAB PO (17:18)
[2019-02-16] MEDS: OXYCODONE/ACETAMINOPHEN (5/325) TAB PO ×4 (04:12→22:54)
[2019-02-16] MEDS: INSULIN ASPART [NOVOLOG] 3 ML PEN SC ×4 (08:00→21:00)
[2019-02-16] MEDS: CITALOPRAM 20 MG TAB PO (08:32)
[2019-02-16] MEDS: LORATADINE 10 MG TAB PO (08:33)
[2019-02-16] MEDS: GUAIFENESIN LA 600 MG TABSR PO (08:33)
[2019-02-16] MEDS: BACLOFEN 10 MG TAB PO ×3 (08:33→21:19)
[2019-02-16] MEDS: DOCUSATE SODIUM 100 MG CAP PO ×2 (08:38→21:18)
[2019-02-16] MEDS: ENOXAPARIN 40 MG/0.4 ML SYG SC (08:38)
[2019-02-16] MEDS: POLYETHYLENE GLYCOL 17 GM PACKET PO ×2 (08:38→21:18)
[2019-02-16] MEDS: DAKINS 0.0125%(1/40) 473 ML SOLUTION TP (08:39)
[2019-02-16] MEDS: BALSAM PERU/CASTOR OIL 60 GM TUBE TOP ×2 (08:39→21:57)
[2019-02-16] MEDS: COLLAGENASE 5 GM (UD JAR) TOP (08:40)
[2019-02-16] MEDS: MULTIVITAMINS THERAPEUTIC TAB PO (15:23)
[2019-02-16] MEDS: DIAZEPAM 2 MG TAB PO (18:40)
[2019-02-16] MEDS: ASCORBIC ACID 500 MG TAB PO (21:18)
[2019-02-17] MEDS: OXYCODONE/ACETAMINOPHEN (5/325) TAB PO ×2 (04:53→12:06)
[2019-02-17] MEDS: LORAZEPAM 0.5 MG TAB PO ×2 (06:10→20:16)
[2019-02-17] MEDS: INSULIN ASPART [NOVOLOG] 3 ML PEN SC ×4 (08:00→20:15)
[2019-02-17] MEDS: BACLOFEN 10 MG TAB PO ×3 (08:31→20:17)
[2019-02-17] MEDS: POLYETHYLENE GLYCOL 17 GM PACKET PO ×2 (08:31→20:16)
[2019-02-17] MEDS: COLLAGENASE 5 GM (UD JAR) TOP (08:31)
[2019-02-17] MEDS: CITALOPRAM 20 MG TAB PO (08:31)
[2019-02-17] MEDS: ASCORBIC ACID 500 MG TAB PO ×2 (08:32→20:17)
[2019-02-17] MEDS: MULTIVITAMINS THERAPEUTIC TAB PO (08:32)
[2019-02-17] MEDS: DOCUSATE SODIUM 100 MG CAP PO ×2 (08:33→20:17)
[2019-02-17] MEDS: ENOXAPARIN 40 MG/0.4 ML SYG SC (08:38)
[2019-02-17] MEDS: BALSAM PERU/CASTOR OIL 60 GM TUBE TOP ×2 (08:39→20:19)
[2019-02-17] MEDS: DAKINS 0.0125%(1/40) 473 ML SOLUTION TP (08:39)
[2019-02-17] MEDS: DIAZEPAM 2 MG TAB PO (16:39)
[2019-02-18] MEDS: OXYCODONE/ACETAMINOPHEN (5/325) TAB PO ×3 (02:12→21:13)
[2019-02-18] MEDS: INSULIN ASPART [NOVOLOG] 3 ML PEN SC ×4 (08:00→20:20)
[2019-02-18] MEDS: DOCUSATE SODIUM 100 MG CAP PO ×2 (08:52→20:17)
[2019-02-18] MEDS: CITALOPRAM 20 MG TAB PO (08:52)
[2019-02-18] MEDS: ASCORBIC ACID 500 MG TAB PO ×2 (08:53→20:18)
[2019-02-18] MEDS: MULTIVITAMINS THERAPEUTIC TAB PO (08:54)
[2019-02-18] MEDS: BACLOFEN 10 MG TAB PO ×3 (08:54→20:18)
[2019-02-18] MEDS: DAKINS 0.0125%(1/40) 473 ML SOLUTION TP (08:54)
[2019-02-18] MEDS: BALSAM PERU/CASTOR OIL 60 GM TUBE TOP ×2 (08:54→20:21)
[2019-02-18] MEDS: COLLAGENASE 5 GM (UD JAR) TOP (08:55)
[2019-02-18] MEDS: DIAZEPAM 2 MG TAB PO ×2 (08:57→20:19)
[2019-02-18] MEDS: POLYETHYLENE GLYCOL 17 GM PACKET PO ×2 (10:37→20:17)
[2019-02-18] MEDS: ENOXAPARIN 40 MG/0.4 ML SYG SC (10:38)
[2019-02-19] MEDS: OXYCODONE/ACETAMINOPHEN (5/325) TAB PO ×2 (08:01→15:58)
[2019-02-19] MEDS: DOCUSATE SODIUM 100 MG CAP PO ×2 (08:31→20:14)
[2019-02-19] MEDS: ASCORBIC ACID 500 MG TAB PO ×2 (08:31→20:14)
[2019-02-19] MEDS: BACLOFEN 10 MG TAB PO ×3 (08:32→20:15)
[2019-02-19] MEDS: MULTIVITAMINS THERAPEUTIC TAB PO (08:32)
[2019-02-19] MEDS: CITALOPRAM 20 MG TAB PO (08:32)
[2019-02-19] MEDS: BALSAM PERU/CASTOR OIL 60 GM TUBE TOP ×2 (08:33→21:00)
[2019-02-19] MEDS: DAKINS 0.0125%(1/40) 473 ML SOLUTION TP (08:33)
[2019-02-19] MEDS: COLLAGENASE 5 GM (UD JAR) TOP (08:33)
[2019-02-19] MEDS: INSULIN ASPART [NOVOLOG] 3 ML PEN SC ×4 (08:35→20:19)
[2019-02-19] MEDS: ENOXAPARIN 40 MG/0.4 ML SYG SC (08:40)
[2019-02-19] MEDS: POLYETHYLENE GLYCOL 17 GM PACKET PO ×2 (08:40→20:13)
[2019-02-19] MEDS: DIAZEPAM 2 MG TAB PO (10:28)
[2019-02-19] MEDS: LORAZEPAM 0.5 MG TAB PO (17:19)
[2019-02-19] MEDS: NYSTATIN 15 GM CR TOP (21:00)
== END 2019-02-19 22:00 | DRG 871 ==
LOC: PP2 12-29 12:04 → 5EC 01-14 → ICU 23:33 → E/R 20:59
PROVIDERS: Family Medicine
PROC: 02HV33Z Insertion of Infusion Device into Superior Vena Cava, Percutaneous Approach (ICD-10-PCS; principal; 2018-12-24)
PROC: 0BH18EZ Insertion of Endotracheal Airway into Trachea, Via Natural or Artificial Opening Endoscopic (ICD-10-PCS; 2018-12-24)
PROC: 5A1945Z Respiratory Ventilation, 24-96 Consecutive Hours (ICD-10-PCS; 2018-12-24)
PROC: 30233N1 Transfusion of Nonautologous Red Blood Cells into Peripheral Vein, Percutaneous Approach (ICD-10-PCS; 2018-12-24)
PROC: 30233N1 Transfusion of Nonautologous Red Blood Cells into Peripheral Vein, Percutaneous Approach (ICD-10-PCS; 2018-12-27)
DX: A41.9 Sepsis, unspecified organism (principal); L89.224 Pressure ulcer of left hip, stage 4; R65.21 Severe sepsis with septic shock; G92 Toxic encephalopathy; J96.01 Acute respiratory failure with hypoxia; N17.0 Acute kidney failure with tubular necrosis; I21.A1 Myocardial infarction type 2; E87.2 Acidosis; D68.9 Coagulation defect, unspecified; I42.9 Cardiomyopathy, unspecified; E87.0 Hyperosmolality and hypernatremia; F33.9 Major depressive disorder, recurrent, unspecified; M86.9 Osteomyelitis, unspecified; M17.0 Bilateral primary osteoarthritis of knee; D69.6 Thrombocytopenia, unspecified; K66.8 Other specified disorders of peritoneum; E88.09 Other disorders of plasma-protein metabolism, not elsewhere classified; K75.9 Inflammatory liver disease, unspecified; E87.6 Hypokalemia; I25.10 Atherosclerotic heart disease of native coronary artery without angina pectoris; D50.9 Iron deficiency anemia, unspecified; F41.9 Anxiety disorder, unspecified; R25.2 Cramp and spasm; N32.89 Other specified disorders of bladder; N30.81 Other cystitis with hematuria; B96.20 Unspecified Escherichia coli [E. coli] as the cause of diseases classified elsewhere; E83.42 Hypomagnesemia; Z22.322 Carrier or suspected carrier of Methicillin resistant Staphylococcus aureus
CPT/HCPCS: 31500; 36415; 36430; 36600; 70450; 71045; 71250; 72192; 73560; 73721; 74176; 74177; 76775; 80048; 80053; 80202; 81001; 81003; 82043; 82270; 82465; 82550; 82553; 82607; 82728; 82746; 82803; 82962; 83010; 83036; 83540; 83605; 83615; 83690; 83735; 84100; 84134; 84155; 84165; 84300; 84443; 84478; 84484; 85025; 85045; 85220; 85240; 85362; 85378; 85384; 85610; 85651; 85730; 86140; 86644; 86703; 86704; 86709; 86803; 86850; 86900; 86901; 86920; 87040-91; 87070; 87081; 87086; 87340; 92526; 92610; 93005; 93306; 94002; 94003; 94770; 96365; 96367; 97110; 97162; 97165; 97530; 97535; 99291-25